=== PATIENT | male | born 1955 | race Caucasian/White ===

== ENCOUNTER 2016-12-24 09:32 | Emergency (ER) | payer MEDICARE, OTHER ==
[~2016-12-24] VITALS: Ht 167.6 cm; Wt 71.7 kg
[~2016-12-24 09:32] MED LIST: ASPI-973 PO; ATOR20TA65 PO; CLOP75TA3 PO; LISI-571 PO
[2016-12-24 09:40] VITALS: BP 109/74; PULSE 98; RESP 28; O2SAT 96
--- NOTE | 2016-12-24 09:52 | ED.REPORT ---
HPI-General Illness Date of Service Dec 24, 2016 ED Provider: Kavon Ball MD The patient is a 61 year old male with history of hypertension, hyperlipidemia, and peripheral vascular disease s/p stenting, who presents to the emergency department complaining of difficulty breathing that began yesterday. His breathing is exacerbated with exertion. He also complains of severe bilateral lower extremity pain. The pain is located to his thighs bilaterally. He describes the pain as "sharp." His pain is worse with exertion. His pain is similar to when he previous needed stents placed in his legs. The patient has been vomiting intermittently over the last few weeks that began after he drank Clorox by accident. He has been unable to keep anything down. He denies numbness , focal weakness, headache or chest pain. The patient states he stopped taking his medications on Friday because they have been making him sick. His medications include: atorvastatin, lisinopril, aspirin, and clopidogrel. Nursing Notes Stated Complaint: BILATERAL LEG PAIN/SHORTNESS OF BREATH/VOMITING Chief Complaint: Respiratory Complaints Nursing Notes Reviewed: Yes Allergies: Coded Allergies: codeine (Verified Adverse Reaction, Intermediate, nausea, 01/23/16) Scheduled Aspirin (Aspirin) 81 Mg Tablet 81 MG PO DAILY Atorvastatin Calcium (Atorvastatin Calcium) 20 Mg Tablet 20 MG PO DAILY Clopidogrel Bisulfate (Plavix) 75 Mg Tablet 75 MG PO DAILY Lisinopril (Lisinopril) 5 Mg Tablet 5 MG PO DAILY General Time Seen by MD: 09:50 Chief Complaint Other (difficulty breathing) Hx Obtained From: Patient Arrived By: Walk-in Sudden in Onset?: Yes Onset Occurred: Yesterday Symptom Duration: Since onset Location: : Leg left: Leg right Quality: Painful, Sharp Severity: Current: Severe Severity: Maximum: Severe Recent Healthcare: No recent hospitalization Similar Sx Previous: Yes Past Medical History Past Medical History Hypertension Hyperlipidemis Peripheral vascular disease Past Surgical History Multiple stents for peripheral vascular disease Family History Noncontributory Smoking History Former Smoker Social History Other Social History: Local resident Ambulatory Status Independent Review of Systems Full Review of Systems Constitutional: Reports: Weakness - generalized Respiratory: Reports: Shortness of breath Cardiovascular: Denies: Chest pain GI: Reports: Nausea, Vomiting Musculoskeletal: Reports: Extremity pain Neurologic: Denies: Focal weakness, Headache, Numbness Complete sys rev & neg: except as marked. Physical Exam Vital Signs Vital Signs Date Time Temp Pulse Resp B/P Pulse Ox O2 Delivery O2 Flow Rate FiO2 12/24/16 16:31 96 24 120/66 93 Room Air 12/24/16 14:34 68 22 148/76 93 Room Air 12/24/16 14:25 104 26 94 Room Air 12/24/16 13:52 88 20 137/80 92 Room Air 12/24/16 11:40 82 20 122/81 93 Room Air 12/24/16 09:40 36.6 98 28 109/74 96 Room Air Initial VS: Reviewed Head / Eyes: Atraumatic, Normocephalic, PERRL Neck: Supple, Non-tender, Full range of motion Lymphatic: No lymphadenopathy Extremities: Vascular intact, Neuro intact Skin: Warm, Dry, No cyanosis Neurologic: Alert, Oriented, Nonfocal Psychiatric: Mood/affect normal, Behavior normal, Normal thought content General/Constitutional: Awake, Alert, Cooperative ENT: Atraumatic, Airway patent, Mucous membranes moist Respiratory / Chest: Atraumatic, Breath sounds NL, Breath sounds = bilat, No respiratory distress, No rales, No rhonchi, No wheezing Cardiovascular: Heart rate NL, Regular rhythm, Heart sounds NL, No gallop, No murmurs, No rubs, Cap refill not delayed, Peripheral circulation NL Abdomen: Atraumatic, Soft, Non-tender, No guarding, No rebound, BS normoactive , No distention Lower Extremity / Pelvis / MS: Neurologic intact, Vascular intact No calf swelling or tenderness. Toes are warm and well perfused. Rectum / Perineum: Blood - occult heme - Rectum / Perineum Abnl: Positive: Hemorrhoid external, Negative: Fissure present, Hemorrhoid bleeding Normal brown stool. Interpretation & Diagnostics PROCEDURE: US DUPLEX DOPPLER BILATERAL LEG ARTERIES IMPRESSION: 1. Occlusion of the proximal right and the entire left superficial femoral artery as described above. There is likely reconstitution of the distal right SFA via collaterals and reconstitution of the left popliteal artery via collaterals. 2. The left posterior tibial artery is likely occluded. 3. Probable high-grade stenosis within the left popliteal artery. These findings were discussed with Dr. Ball 3:04 PM on 12/24/16. Approved by: oYana Gibbons M.D. on 12/24/2016 at 15:07 Lab Results Interpretation Result Diagram: 12/24/16 1001 12/24/16 1001 Test 12/24/16 10:01 White Blood Count 10.1th/mm3 (3.8-10.1) Red Blood Count 4.32mil/mm3 (4.40-5.80) Hemoglobin 11.5g/dL (13.8-17.2) Hematocrit 35.4% (41.0-50.0) Mean Corpuscular Volume 81.9fL (81-100) Mean Corpuscular Hemoglobin 26.6pg (27.0-35.0) Mean Corpuscular Hemoglobin Concent 32.5% (32.0-37.0) Red Cell Distribution Width 14.9% (12.3-15.4) Platelet Count 343bil/L (150-400) Neutrophils (%) (Auto) 78.8% (40-74) Lymphocytes (%) (Auto) 9.9% (14-46) Monocytes (%) (Auto) 10.1% (4-12) Eosinophils (%) (Auto) 0.6% (0-5) Basophils (%) (Auto) 0.3% (0-3) Sodium Level 133mEq/L (134-144) Potassium Level 4.0mEq/L (3.5-5.2) Chloride Level 97mEq/L (97-108) Carbon Dioxide Level 20mmol/L (18-29) Blood Urea Nitrogen 12mg/dL (8-27) Creatinine 0.62mg/dL (0.76-1.27) Estimat Glomerular Filtration Rate 139mL/min (>59) Glucose Level 172mg/dL (60-99) Lactic Acid Level 1.4mmol/L (0.4-2.0) Calcium Level 8.9mg/dL (8.5-10.1) Magnesium Level 2.0mg/dL (1.6-2.6) Total Bilirubin 0.8mg/dL (0.0-1.2) Aspartate Amino Transf (AST/SGOT) 46U/L (0-50) Alanine Aminotransferase (ALT/SGPT) 53U/L (0-44) Alkaline Phosphatase 100U/L (25-160) Troponin T 0.010ug/L (0.0-0.011) Total Protein 6.6g/dL (6.4-8.4) Albumin 3.0g/dL (3.4-5.0) ECG Interpretation ECG Interpretation: Sinus rhythm with a rate of 89 bpm Normal axis Normal intervals No ST segment elevation No acute T wave abnormalities When compared to prior EKG taken on 01/23/2016 there are no significant changes Time: 09:56 Interpreted by: ED physician X-Ray Chest Interpretation Chest Xray Interpretation: IMPRESSION: 1. Large left pleural effusion which maybe loculated. Contrast-enhanced CT the chest recommended to further characterize this finding if clinically indicated. 2. Consolidation at the left lung base suspicious for aspiration/infection. Underlying neoplasm cannot be excluded and further characterization with CT is warranted. 3. Right upper lobe pulmonary nodule suspicious for neoplasm. CT of the chest recommended to further characterize this finding. Dictated by: Yoana Gibbons M.D. on 12/24/2016 at 10:22 Interpretation / Wet Read by: Interpret - Radiologist CT Chest Interpretation IMPRESSION: 1. Radiographic finding corresponds with a 2 cm spiculated mass on CT scan, consistent with neoplasm. 2. Larger 5.3 cm left upper lobe mass is also present, consistent with neoplasm. Findings may represent synchronous primary bronchogenic neoplasms. Additional 5 mm posterolateral right lung base nodule more likely represents pulmonary metastasis. 3. Multiple enlarged mediastinal and bilateral hilar lymph nodes, consistent with metastases. 4. Large partially loculated left pleural effusion, with scattered posteroinferior left pleural nodular lesions, consistent with metastases and malignant effusion. Dictated by: Mazin Meyers M.D. on 12/24/2016 at 14:40 Study type: Chest CT w contrast Interpretation / Wet Read by: Interpret - Radiologist Re-Eval/Medical Decision Med Decision/Clinical Course The patient is a 61 year old male with history of hypertension, hyperlipidemia, and peripheral vascular disease s/p stenting, who presents to the emergency department complaining of difficulty breathing that began yesterday. His breathing is exacerbated with exertion. He also complains of severe bilateral lower extremity pain. The pain is located to his thighs bilaterally. He describes the pain as "sharp." His pain is worse with exertion. His pain is similar to when he previous needed stents placed in his legs. Here in the emergency department the patient is afebrile and hemodynamically stable. Examination as above. Doppler - DP detected on right foot, undetectable on left. LABS: No leukocytosis, hct 35.4 sig down from 44.4 on 01/23/16, CMP stable renal function, no significant electrolyte abnormalities, lactic acid 1.4. Rectal exam: guaiac negative, brown stool. CXR: Large left pleural effusion which maybe loculated. Consolidation at the left lung base suspicious for aspiration/infection. Right upper lobe pulmonary nodule suspicious for neoplasm. Chest CT: 1. Radiographic finding corresponds with a 2 cm spiculated mass on CT scan, consistent with neoplasm. 2. Larger 5.3 cm left upper lobe mass is also present, consistent with neoplasm. Findings may represent synchronous primary bronchogenic neoplasms. Additional 5 mm posterolateral right lung base nodule more likely represents pulmonary metastasis. 3. Multiple enlarged mediastinal and bilateral hilar lymph nodes, consistent with metastases. 4. Large partially loculated left pleural effusion, with scattered posteroinferior left pleural nodular lesions, consistent with metastases and malignant effusion. LE Duplex: 1. Occlusion of the proximal right and the entire left superficial femoral artery as described above. There is likely reconstitution of the distal right SFA via collaterals and reconstitution of the left popliteal artery via collaterals. 2. The left posterior tibial artery is likely occluded. 3. Probable high-grade stenosis within the left popliteal artery. Patient presents at this time with multiple concerning medical conditions. In regard to his lower extremity claudication I have discussed the above ultrasound findings with Dr. Pryor originally placed stents. I have ordered heparinization and would like to admit the patient. Dr. Pryor does not feel that this is necessarily indicated given that his feet do not appear acutely ischemic he would prefer to see him instead in his clinic at 2 PM tomorrow. That being said given the concomitant findings of likely malignancy I feel the patient should be admitted in order to expedite further workup. In regards to the patient's drop in hematocrit I see no evidence of GI bleed. I discussed all of this with the patient and he is adamant that he refuses admission under any circumstances. I discussed with him my concern for possible limb loss as well as need for expedited workup of his malignancy. Patient states that he refuses to be admitted. I discussed the patient with pulmonology and they are able to see him in their clinic in one week for further workup of his likely metastatic cancer. In regard to the patient's arterial disease he has an appointment at 2 PM tomorrow but states that he has no intention of going to this as he does not know how he will get there. I have made multiple attempts to convince the patient to stay in the hospital given that he seems to have multiple social barriers to being able to get adequate follow-up. He continues to refuse admission. I am unconvinced that he will follow up with any of his outpatient appointments however he demonstrates digital capacity and insight into the severity of his condition and chooses to leave AGAINST MEDICAL ADVICE. Prior to discharge follow-up and return precautions were reviewed in detail with the patient who verbalized understanding. The patient is advised to come back to the emergency room if he changes his mind or is unable to get outpatient follow-up. Source of Hx: Old records Time of Eval: 11:42 Re-Evaluation/Progress Note: Rechecked the patient. Discussed plan for bilateral lower extremity ultrasounds. Time of Eval: 14:07 Re-Evaluation/Progress Note: Rechecked the patient. Discussed plan for outpatient appointment with Dr. Pina, the patient does not think he can make it to the appointment tomorrow because he does not drive. He does think he may be able to ride the bus. The patient states he is not worried about his legs but is more worried about his breathing. On re-examination the patient's lungs are slightly coarse. The patient does not use breathing treatments at home. He is willing to try one here to see if it helps. Will also order chest CT. Time of Eval: 15:24 Re-Evaluation/Progress Note: The patient is unwilling to stay in the hospital. He has animals at home and does not have anyone to take care of them. Will hold heparin at this time. Time of Eval: 16:01 Re-Evaluation/Progress Note: Rechecked the patient. Discussed chest CT results with the patient. Continued to recommend admission. The patient would still like to go home. He is agreeable to see a specialist to further discuss the CT results. He understands the risks of leaving today. Consultation #1: Referral / Consult Name: Salvatore Pina MD Consulted With: Cardiology Requested Call at: 10:55 Call Returned at: 12:14 Note: He doesn't need any emergent intervention. Dr. Pina will see him in clinic next week. Consultation #2: Referral / Consult Name: Yris Pugh MD Consulted With: Cardiology Call Returned at: 11:39 Spar Machine Operator: Agrees with eval, Agrees with plan Consultation #3: Referral / Consult Name: Salvatore Pina MD Consulted With: Cardiology Call Returned at: 14:02 Note: Discussed ultrasound results. He does not feel that the patient needs to be admitted or that he needs to see the patient in the ED today. Consultation #4: Referral / Consult Name: Lawrence Maldonado MD Consulted With: Ornamental Metal Worker Call Returned at: 16:07 Spar Machine Operator: Agrees with eval, Agrees with plan Note: Discussed the patient's case with the cotton weigher operator maintenance planner. Refer the patient to Dr. Hopper. Consultation #5: Referral / Consult Name: Maria L Hopper MD Consulted With: Ornamental Metal Worker Requested Call at: 16:08 Call Returned at: 16:13 Spar Machine Operator: Will see in office, Agrees with eval, Agrees with plan Note: She recommends a full workup from admission but will see him in clinic on Friday or Friday of next week. Counseled Regarding: Diagnosis, Lab results, Need for follow-up, When/why to return to ED Discharge & Departure Primary Impression: Peripheral vascular disease Additional Impressions: Dyspnea Dyspnea type: shortness of breath Qualified Code: R06.02 - Shortness of breath Pulmonary mass Pleural effusion Ischemic leg Noncompliance by refusing intervention or support Anemia Anemia type: unspecified type Qualified Code: D64.9 - Anemia, unspecified Disposition: Home Discharge Condition All VS Reviewed: Yes Condition: Stable Patient Instructions: Peripheral Vascular Disease (ED) Additional Instructions: We highly recommend that you are admitted to the hospital today but you are refusing. We are concerned about the likelihood about cancer in your lungs which needs to be worked up as well as not getting enough blood flow to your legs which could potentially cause you to loose your leg. You have an appointment with Dr. Pina in clinic tomorrow at 2 PM. Please arrive early for check-in. Your appointment is at the [facility] location, the address is: [address] [place] [id number]. If you cannot make this appointment, please call tomorrow to cancel and reschedule. You should also followup with a maintenance planner to further discuss your chest CT results. We have given you a referral to Dr. Hopper. Call tomorrow to schedule an appointment in the next few days. We also recommend that you take all of your medications that were previously prescribed. Return to the emergency department for worsening pain in your leg, coolness in your feet, loss of sensation of your foot, discoloration of your foot, inability to walk, or any other new or concerning symptoms. You are welcome to return at any time to get these issues treated. Referrals: Anurag Kasper DO (PCP) Maria L Hopper MD, Sanjeev MD Crit Care Except Billable Proc Time Spent: 135-164 minutes Services Performed: Patient management by me, Time spent at bedside, Reviewing test results, Reviewing imaging, Discussing patient care, Documentation in record, Time with fam/surrogate Critical Care Notes: Significant time spent in discussions with patient, discussions with consultants and attempting to arrange appropriate outpatient follow-up for this patient who refuses admission and has multiple barriers to achieving outpatient follow-up for his multiple critical conditions. Brandonibe Attestation Portions of this note were transcribed by Shana Young. I, Dr. Ball personally performed the history, physical exam and medical decision-making; I reviewed and confirmed the accuracy of the information in the transcribed note. Signed by: Lee Ann Meyers, 12/24/2016 at 1700. copies to: Anurag Kasper DO; Maria L Hopper MD; Salvatore Pina MD, Beck O MD Dec 24, 2016 09:52 Shana Young Dec 24, 2016 10:11
[2016-12-24 10:13] LABS: BASOPHILS % (AUTO) 0.3 % (0-3); EOSINOPHILS % (AUTO) 0.6 % (0-5); MONOCYTES % (AUTO) 10.1 % (4-12); Mean Corpuscular Hemoglobin 26.6 pg (27.0-35.0); Mean Corpuscular Volume 81.9 fL (81-100); NEUTROPHILS % (AUTO) 78.8 % (40-74); Platelet Count 343 bil/L (150-400)
--- NOTE | 2016-12-24 10:28 | DRSVH ---
PROCEDURE: X-RAY CHEST ONE VIEW, PORTABLE ([id number]) INDICATIONS: SOB TECHNIQUE: One view of the chest was acquired. COMPARISON: [facility], CT, CHEST W/O CONTRAST, 12/13/2013, 12:11. [facility], CR, CHEST 1VW (PORTABLE), 09/09/2013, 11:51. FINDINGS: Surgical changes and devices: None. Lungs and pleura: There is a large left pleural effusion which has a partially loculated appearance. Air space opacities and consolidation are present within the left mid and lower lung. There is a ill- defined 2.0 cm right upper lobe radiopacity. No right pleural effusion. No pneumothorax. Mediastinum: Mediastinal contours appear normal. Heart size is normal. Bones and chest wall: No suspicious bony lesions. Overlying soft tissues appear unremarkable. IMPRESSION: 1. Large left pleural effusion which maybe loculated. Contrast-enhanced CT the chest recommended to f urther characterize this finding if clinically indicated. 2. Consolidation at the left lung base suspicious for aspiration/infection. Underlying neoplasm canno t be excluded and further characterization with CT is warranted. 3. Right upper lobe pulmonary nodule suspicious for neoplasm. CT of the chest recommended to further characterize this finding. Dictated by: Yoana Gibbons M.D. on 12/24/2016 at 10:22 Approved by: Yoana Gibbons M.D. on 12/24/2016 at 10:26
[2016-12-24 10:40] LABS: TROPONIN T 0.01 ug/L (0.0-0.011)
[2016-12-24 11:40] VITALS: BP 122/81; PULSE 82; RESP 20; O2SAT 93
[2016-12-24 13:52] VITALS: BP 137/80; PULSE 88; RESP 20; O2SAT 92
[2016-12-24] MEDS ORDERED: Albuterol-Ipratropium 3 mL Inhalation Solution NEB ONE (14:10)
[2016-12-24 14:25] VITALS: PULSE 104; RESP 26; O2SAT 94
[2016-12-24 14:34] VITALS: BP 148/76; PULSE 68; RESP 22; O2SAT 93
--- NOTE | 2016-12-24 15:09 | DRSVH ---
PROCEDURE: US DUPLEX DOPPLER BILATERAL LEG ARTERIES ([id number]) INDICATIONS: claudication, PAD, stend hx TECHNIQUE: Color and pulse Doppler interrogation was performed of both lower extremity arterial systems, with im age documentation. COMPARISON: [facility], XA, REVASC FEM/POP (ANGIOPLASTY), 01/23/2016, 9:45. [facility], US, US ARTERY LEG DPLX BILAT, 09/26/2015, 14:20. FINDINGS: Right lower extremity: Vascular Ultrasound Procedure Report Findings(Artery of Lower Extremity)(Right) Common Femoral Artery(Distal) Velocity: 51.30 cm/s Profunda Femoris Artery(Proximal) Velocity: 178.60 cm/s Superficial Femoral Artery(Proximal) Velocity: 0 cm/s Superficial Femoral Artery(Mid-longitudinal) Velocity: 47.90 cm/s Superficial Femoral Artery(Distal) Velocity: 26.40 cm/s Popliteal Artery(Mid-longitudinal) Velocity: 20 cm/s Posterior Tibial Artery(Distal) Velocity: 23.10 cm/s Dorsalis Pedis Artery(Distal) Velocity: 23.10 cm/s Greyscale findings: There is occlusion of the proximal superficial femoral artery with reconstitution of the mid superficial femoral artery likely from collaterals. Atheromatous calcifications are prese nt throughout the right lower extremity arteries. Left lower extremity: Vascular Ultrasound Procedure Report Findings(Artery of Lower Extremity)(Left) Common Femoral Artery(Distal) Velocity: 68.90 cm/s Profunda Femoris Artery(Proximal) Velocity: 226.20 cm/s Superficial Femoral Artery(Proximal) Velocity: 0 cm/s Superficial Femoral Artery(Mid-longitudinal) Velocity: 0 cm/s Superficial Femoral Artery(Distal) Velocity: 0 cm/s Popliteal Artery(Mid-longitudinal) Velocity: 91.20 cm/s Posterior Tibial Artery(Distal) Velocity: 0 cm/s Dorsalis Pedis Artery(Distal) Velocity: 11.40 cm/s Greyscale findings: There is occlusion of the left superficial femoral artery throughout its course. There is reconstitution of the popliteal artery likely via collaterals. A stenosis is present within the left popliteal artery. IMPRESSION: 1. Occlusion of the proximal right and the entire left superficial femoral artery as described above. There is likely reconstitution of the distal right SFA via collaterals and reconstitution of the lef t popliteal artery via collaterals. 2. The left posterior tibial artery is likely occluded. 3. Probable high-grade stenosis within the left popliteal artery. These findings were discussed with Dr. Ball 3:04 PM on 12/24/16. Approved by: Yoana Gibbons M.D. on 12/24/2016 at 15:07
[2016-12-24] MEDS ORDERED: Heparin Initial Bolus IVPUSH ONE (15:15)
[2016-12-24] MEDS ORDERED: Heparin Protocol Boluses IVPUSH PRN (15:15)
[2016-12-24] MEDS ORDERED: Heparin 25K Unit/500mL 0.45 NS 25,000 UNIT in IV Premix 1 EACH IV SCH (15:15)
--- NOTE | 2016-12-24 15:54 | DRSVH ---
PROCEDURE: CT CHEST WITH CONTRAST ([id number]) INDICATIONS: 61 year-old male with right upper lung mass on recent radiographs. TECHNIQUE: After the administration of intravenous contrast, 5 mm thick sections acquired from the pulmonary api cj to the posterior costophrenic angles. 7 mm thick coronal and sagittal MIP reformats were acquire d. For radiation dose reduction, the following was used: automated exposure control, adjustment of mA and/or kV according to patient size. COMPARISON: [facility], CR, XR CHEST 1VW (PORTABLE), 12/24/2016, 10:00. [facility], CT, CHEST W/O CONTRAST, 12/13/2013, 12:11. FINDINGS: Image quality: Excellent. Lungs and pleura: Previously noted 3 mm lateral right upper lobe nodule has now increased in size up to 2 cm, demonstrating spiculated margins and corresponding with radiographic finding. Previously no don 4 cm groundglass and solid nodular opacity within the left upper lobe has also increased in size and density to 5.3 cm. Moderate to large partially loculated left pleural effusion causes peripheral compressive atelectasis of the left upper and lower lobes. Pleural nodular lesions are present within the posterior left lower thorax. On axial image 42, posterolateral right lung base 5 mm nodule appe ars new since 2013. No pneumothorax. Anterior left upper lobe bullous emphysema is again noted. Centr al and peripheral airways are patent and normal in caliber. Mediastinum: Heart size is normal. No pericardial effusion. Multiple enlarged mediastinal and bilat eral hilar lymph nodes appear new since 2014, measuring up to 2.0 cm short axis dimensions in the sub carinal region. Thoracic aorta and central pulmonary arteries are normal in size. Esophagus is grace l in caliber. No hiatal hernia. Bones and chest wall: No suspicious bony lesions. No vertebral body compression fractures. No axil chris or supraclavicular adenopathy by size criteria. Thyroid gland is normal in size. Abdomen: Visualized upper abdominal solid organs appear normal. Upper abdominal bowel loops are nor mal in caliber. IMPRESSION: 1. Radiographic finding corresponds with a 2 cm spiculated mass on CT scan, consistent with neoplasm. 2. Larger 5.3 cm left upper lobe mass is also present, consistent with neoplasm. Findings may represe nt synchronous primary bronchogenic neoplasms. Additional 5 mm posterolateral right lung base nodule more likely represents pulmonary metastasis. 3. Multiple enlarged mediastinal and bilateral hilar lymph nodes, consistent with metastases. 4. Large partially loculated left pleural effusion, with scattered posteroinferior left pleural nodul ar lesions, consistent with metastases and malignant effusion. Dictated by: Mazin Meyers M.D. on 12/24/2016 at 14:40 Approved by: Mazin Meyers M.D. on 12/24/2016 at 14:52
[2016-12-24 16:31] VITALS: BP 120/66; PULSE 96; RESP 24; O2SAT 93
== END 2016-12-24 16:31 | disposition home or self-care (01) ==
LOC: SED 09:32
DX: I73.9 Peripheral vascular disease, unspecified (principal); R91.8 Other nonspecific abnormal finding of lung field; J90 Pleural effusion, not elsewhere classified; I99.8 Other disorder of circulatory system; D64.9 Anemia, unspecified; I10 Essential (primary) hypertension; E78.5 Hyperlipidemia, unspecified; Z87.891 Personal history of nicotine dependence; Z79.82 Long term (current) use of aspirin; Z79.899 Other long term (current) drug therapy
CPT/HCPCS: 36415; 71010; 71260; 80053; 83605; 83735; 84484; 85025; 93005; 93925; 99285; J7620; Q9967

== ENCOUNTER 2016-12-31 10:21 | Inpatient (IN) | payer MEDICARE ==
[~2016-12-31] VITALS: Ht 170.2 cm; Wt 72.7 kg
[2016-12-31] VITALS (9 sets, daily range): BP systolic 90–122; BP diastolic 64–83; PULSE 89–101; RESP 12–25; O2SAT 95–99
--- NOTE | 2016-12-31 12:15 | ED.REPORT ---
HPI-Dyspnea / Wheezing Date of Service Dec 31, 2016 ED Provider: Woo Salazar MD Patient is a 61 year old male with a hx of HTN and peripheral vascular disease with stents who presents to the ED from for increasing SOB over the last week. Today he was digging a ditch when he became very short of breath. Associated symptoms include lower extremity pain and productive cough. He denies extremity swelling, chest pain, fever, or any other symptoms. He was sent with oxygen from with symptom improvement. He was 89% on room air at . Patient has an appointment with his PCP at [facility] but could not wait until then. He was seen here a week ago , had a contrast CT scan of the chest which demonstrated a left pleural effusion and spiculated mass suspicious for malignancy. Presented to urgent care today with dyspnea. As an approximately [id number] smoking history not smoking. Nursing Notes Stated Complaint: SHORTNESS OF BREATH, CHEST DISCOMFORT Chief Complaint: Respiratory Distress Nursing Notes Reviewed: Yes Allergies: Coded Allergies: No Known Allergies (Unverified , 12/31/16) Scheduled Aspirin (Aspirin) 81 Mg Tablet 81 MG PO DAILY Atorvastatin Calcium (Atorvastatin Calcium) 20 Mg Tablet 20 MG PO DAILY Clopidogrel Bisulfate (Plavix) 75 Mg Tablet 75 MG PO DAILY Lisinopril (Lisinopril) 5 Mg Tablet 5 MG PO DAILY Scheduled PRN Acetaminophen/Codeine 300-30mg (Acetaminophen/Codeine 300-30mg) 1 Each Tablet 2 TABLET PO Q6H PRN PRN Pain General Time Seen by MD: 12:14 Chief Complaint Shortness of breath Hx Obtained From: Patient Arrived By: Walk-in Sudden in Onset?: No Onset Occurred: 1 week ago Symptom Duration: Since onset Recent Healthcare: Recent doctor visit Similar Sx Previous: Yes Past Medical History Past Medical History Hypertension Hyperlipidemis Peripheral vascular disease Past Surgical History Multiple stents for peripheral vascular disease iliac artery surgery Reports: Cataract surgery Family History Noncontributory Smoking History Former Smoker Social History Other Social History: Local resident Ambulatory Status Independent Review of Systems Constitutional: Denies: Fever Respiratory: Reports: Dyspnea on exertion, Prod cough, clear, Shortness of breath Cardiovascular: Denies: Chest pain Musculoskeletal: Reports: Extremity pain, Denies: Extremity swelling Complete sys rev & neg: except as marked. Physical Exam Initial Vital Signs Vital Signs (First) Date Time Temp Pulse Resp B/P Pulse Ox O2 Delivery O2 Flow Rate FiO2 12/31/16 10:40 36.9 91 18 101/70 99 Nasal Cannula 4 Initial VS: Reviewed, Vital signs normal Head / Eyes: Atraumatic, Normocephalic Neurologic: Alert, Oriented, Nonfocal Psychiatric: Mood/affect normal, Behavior normal, Normal thought content General/Constitutional: Awake, Alert Neck: Full range of motion Respiratory / Chest: No wheezing diminished breath sounds, L>R Poor air movement throughout Cardiovascular: Heart rate NL, Regular rhythm, Heart sounds NL, No gallop, No murmurs, No rubs, Peripheral circulation NL Lower Extremity / Pelvis / MS: Non-tender Calves non-tender no cords Skin: Warm, Dry Ankle / Foot: Neurologic intact, Vascular intact Feet warm, pulses intact Interpretation & Diagnostics Lab Results Interpretation Result Diagram: 12/31/16 1202 12/31/16 1202 Test 12/31/16 12:02 White Blood Count 12.5th/mm3 (3.8-10.1) Red Blood Count 4.07mil/mm3 (4.40-5.80) Hemoglobin 10.8g/dL (13.8-17.2) Hematocrit 32.6% (41.0-50.0) Mean Corpuscular Volume 80.1fL (81-100) Mean Corpuscular Hemoglobin 26.5pg (27.0-35.0) Mean Corpuscular Hemoglobin Concent 33.1% (32.0-37.0) Red Cell Distribution Width 15.3% (12.3-15.4) Platelet Count 373bil/L (150-400) Neutrophils (%) (Auto) 80.3% (40-74) Lymphocytes (%) (Auto) 9.1% (14-46) Monocytes (%) (Auto) 9.9% (4-12) Eosinophils (%) (Auto) 0.2% (0-5) Basophils (%) (Auto) 0.2% (0-3) Prothrombin Time 12.9sec (8.1-12.5) Prothromb Time International Ratio 1.20ratio D-Dimer 16.29mg/L FEU (<0.50) Sodium Level 130mEq/L (134-144) Potassium Level 4.4mEq/L (3.5-5.2) Chloride Level 93mEq/L (97-108) Carbon Dioxide Level 21mmol/L (18-29) Blood Urea Nitrogen 12mg/dL (8-27) Creatinine 0.54mg/dL (0.76-1.27) Estimat Glomerular Filtration Rate 163mL/min (>59) Glucose Level 100mg/dL (60-99) Calcium Level 8.6mg/dL (8.5-10.1) Magnesium Level 1.9mg/dL (1.6-2.6) Total Bilirubin 0.8mg/dL (0.0-1.2) Aspartate Amino Transf (AST/SGOT) 27U/L (0-50) Alanine Aminotransferase (ALT/SGPT) 39U/L (0-44) Alkaline Phosphatase 113U/L (25-160) Troponin T 0.010ug/L (0.0-0.011) Total Protein 6.5g/dL (6.4-8.4) Albumin 2.9g/dL (3.4-5.0) ECG Interpretation ECG Interpretation: Sinus rate 90 prolonged QT interval no acute changes Time: 12:33 Interpreted by: ED physician X-Ray Chest Interpretation Chest Xray Interpretation: IMPRESSION: 1. Massive left-sided pleural effusion has significantly increased in the interim. 2. Right upper lobe pulmonary nodule. Dictated by: Bernard Lindsay M.D. on 12/31/2016 at 11:44 Approved by: Bernard Lindsay M.D. on 12/31/2016 at 11:47 View: Portable, 1 view Interpretation / Wet Read by: Interpret - Radiologist CT Chest Interpretation IMPRESSION: 1. Exam is positive for minimal pulmonary embolic disease, specifically in the right lower lobe medially such as series 6/image 105. There are likely additional small emboli but overall clot burden is considered low. 2. 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 Several new subpleural metastases in the right posterior costophrenic angle. Note: Report called to Dr. Salazar in the ED at 1430 hrs. on 12/31/2016 Dictated by: Jake El M.D. on 12/31/2016 at 14:16 Approved by: Jake El M.D. on 12/31/2016 at 14:33 Study type: CT pulm angiogram Interpretation / Wet Read by: Interpret - Radiologist, Tracee w radiologist Re-Eval/Medical Decision Med Decision/Clinical Course 61-year-old male with newly diagnosed lung mass probable malignancy. He has 2 acute problems today, first he has a rapidly progressive left pleural effusion which has essentially shannon out his left lung. In addition unfortunately he also has acute pulmonary emboli. Given the relative size of the pleural effusion and the pulmonary emboli it is clear that the pleural effusion is a primary issue with his dyspnea today. We have consulted radiology for an ultrasound guided thoracentesis which will be therapeutic and diagnostic. Following this had an appropriate interval to be determined by the hospitalist service, he will be anticoagulated. The patient is aware of the plan and is in agreement. He is at present hemodynamically stable and on supplemental oxygen is not dyspneic. Re-Evaluation/Progress #1: Time of Eval: 13:25 )( Re-Eval Resp / Chest: No wheezing Re-Evaluation/Progress Note: rechecked pt. discussed plan for CT and possible fluid drainage. Discussed imaging results. Patient understands and agrees with plan. All questions addressed at this time. Re-Evaluation/Progress #2: Time of Eval: 14:37 Re-Evaluation/Progress Note: Discussed imaging results and plan for admission. Patient understands and agrees with plan. All questions addressed at this time. Consultation : Referral / Consult Name: Orlando Esquivel MD Consulted With: Hospitalist Call Returned at: 14:38 Rooming House Inspector: Will see patient, Agrees with eval, Agrees with plan, Accepts admit Note: Discussed pt's case. Will coordinate anticoagulation. Arrange for pleural effusion tap in ED. Counseled Regarding: Diagnosis, Lab results, Need for admission Discharge & Departure Impression: Primary Impression: Pulmonary emboli Pulmonary embolism type: other Chronicity: unspecified Acute cor pulmonale presence: without acute cor pulmonale Qualified Code: I26.99 - Other pulmonary embolism without acute cor pulmonale Additional Impression: Pleural effusion Disposition: ADMITTED TO HOSPITAL Discharge Condition All VS Reviewed: Yes Condition: Stable Referrals: NOPCP (PCP) Scribe Attestation Portions of this note were transcribed by Vianca Pa. I, Dr. Salazar personally performed the history, physical exam and medical decision-making; I reviewed and confirmed the accuracy of the information in the transcribed note. Signed by: Vianca Pa 12/31/2016, 1502 Woo Salazar MD Dec 31, 2016 12:15 VIANCA PA Dec 31, 2016 12:25
[2016-12-31 12:32] LABS: BASOPHILS % (AUTO) 0.2 % (0-3); EOSINOPHILS % (AUTO) 0.2 % (0-5); MONOCYTES % (AUTO) 9.9 % (4-12); Mean Corpuscular Hemoglobin 26.5 pg (27.0-35.0); Mean Corpuscular Volume 80.1 fL (81-100); NEUTROPHILS % (AUTO) 80.3 % (40-74); Platelet Count 373 bil/L (150-400)
[2016-12-31 12:42] LABS: TROPONIN T 0.01 ug/L (0.0-0.011)
--- NOTE | 2016-12-31 12:49 | DRSVH ---
PROCEDURE: X-RAY CHEST ONE VIEW, PORTABLE ([id number]) INDICATIONS: dyspnea, sob TECHNIQUE: One view of the chest was acquired. COMPARISON: [facility], CT, CT CHEST W CON, 12/24/2016, 14:35. [facility], C R, XR CHEST 1VW (PORTABLE), 12/24/2016, 10:00. FINDINGS: Surgical changes and devices: None. Lungs and pleura: There is a large left-sided pleural effusion identified, which has significantly in creased since the previous examination with near complete opacification of the left lung. Only a sma ll amount of aerated lung remains within the left lung apex. Aeration of the right lung is unchanged . There continues to be right upper lobe pulmonary nodule/mass, which also is unchanged. There is n o pneumothorax. Mediastinum: The mediastinal silhouette is within normal limits. There is aortic atherosclerosis. T he heart is obscure by a large left-sided effusion. Bones and chest wall: No suspicious bony lesions. Overlying soft tissues appear unremarkable. IMPRESSION: 1. Massive left-sided pleural effusion has significantly increased in the interim. 2. Right upper lobe pulmonary nodule. Dictated by: Bernard Lindsay M.D. on 12/31/2016 at 11:44 Approved by: Bernard Lindsay M.D. on 12/31/2016 at 11:47
[2016-12-31 12:53] LABS: Magnesium 1.9 mg/dL (1.6-2.6)
--- NOTE | 2016-12-31 14:35 | DRSVH ---
PROCEDURE: CT ANGIO CHEST PULMONARY EMBOLISM ([id number]) INDICATIONS: elevated dimer and hypoxemia/dyspnea TECHNIQUE: After the administration of intravenous contrast, 2 mm thick sections acquired from the pulmonary api cj to the posterior costophrenic angles. 3-dimensional maximum intensity projection (MIP) coronal a nd sagittal reformats were then acquired through the thorax. For radiation dose reduction, the follo wing was used: automated exposure control, adjustment of mA and/or kV according to patient size. COMPARISON: Chest 12/31/2016; CT chest 12/24/2016 FINDINGS: Image quality: Excellent. Pulmonary arteries: Pulmonary arteries are normal in size. There is a definite intraluminal filling defect within a peripheral branching of a right lower lobe artery at the medial base. No central or s addle emboli seen. Left pulmonary vessels are markedly crowded secondary to severe atelectasis as rel ated to large malignant effusion. Lungs and pleura: As noted above, a large left pleural effusion is present, malignant based upon nodu lar pleural enhancement seen posteriorly at several levels. No right pleural effusion. A 1.5 x 2 cm s piculated mass in the posterior right upper lobe is again noted. A 4.6 cm left perihilar mass is agai n noted. At the right base posteriorly, the solitary 5 mm subpleural nodule is reidentified and there are no multiple similar sized nodules along the posterior pleura, series 8/image 132, likely metasta tic lesions. Mediastinum: Heart size is normal, without pericardial effusion. Multiple enlarged mediastinal and b ilateral hilar lymph nodes compatible with inna metastases. For example a 2.5 cm short diameter subc arinal node is present on the right, image 77. Thoracic aorta is normal in caliber and enhancement. Esophagus is normal in caliber, without hiatal hernia. Bones and chest wall: No suspicious bony lesions. Ribs and thoracic spine appear intact throughout. Thyroid gland appears normal. No axillary or supraclavicular adenopathy. Abdomen: Visualized upper abdominal solid organs appear normal in the early arterial phase of enhanc ement. There are several suspicious gastrohepatic and jone hepatis lymph nodes. IMPRESSION: 1. Exam is positive for minimal pulmonary embolic disease, specifically in the right lower lobe media lly such as series 6/image 105. There are likely additional small emboli but overall clot burden is c onsidered low. 2. 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 Several new subpleural metastases in the right posterior costophrenic angle. Note: Report called to Dr. Salazar in the ED at 1430 hrs. on 12/31/2016 Dictated by: Jake El M.D. on 12/31/2016 at 14:16 Approved by: Jake El M.D. on 12/31/2016 at 14:33
[2016-12-31 14:59] LABS: INR 1.2 ratio
[2016-12-31] MEDS ORDERED: Alum-Mag Hydrox-Simeth 30 mL Suspension PO PRN (16:25)
[2016-12-31] MEDS ORDERED: Ondansetron 2 mg/mL 2 mL Inj IVPUSH PRN (16:25)
[2016-12-31] MEDS ORDERED: Polyethylene Glycol (PEG) 17 Gm Powder PO PRN (16:25)
--- NOTE | 2016-12-31 16:33 | DRSVH ---
PROCEDURE: X-RAY CHEST ONE VIEW ([id number]) INDICATIONS: POST THORACENTESIS TECHNIQUE: One view of the chest was acquired. COMPARISON: 12/31/2016. FINDINGS: Surgical changes and devices: None. Lungs and pleura: Minimal change in volume of large left pleural effusion. No pneumothorax or air flu id levels identified. Small right pleural effusion. Mass lesion in the right upper lobe unchanged. Mediastinum: Mediastinal contours appear normal. Heart size is normal. Bones and chest wall: No suspicious bony lesions. Overlying soft tissues appear unremarkable. IMPRESSION: 1. No visible pneumothorax post left thoracentesis. Considerable remaining fluid volume. Small right pleural effusion has developed. 2. Large left-sided mass lesion is obscured. Small mass in the right upper lobe is again noted. Dictated by: Jake El M.D. on 12/31/2016 at 16:29 Approved by: Jake El M.D. on 12/31/2016 at 16:31
--- NOTE | 2016-12-31 16:38 | ABG ---
DateTimeAnalyzed 16:29:49 -_ pH ____7.201 - pCO2 ___49.7__ -mmHg pO2 ___20.7__ -mmHg HCO3- ___19.5__ -mmol/L 22.0 26.0 ABE ___-7.0__ -mmol/L tHb ____0.95_ -g/dL FIO2 ___21.0__ -% Drawn By ____nurse - Date/Time Notified____ 16:38:00 -_ Notified By RS - Notified Whom Slack,DON - K+ ____4.1__ -mmol/L
--- NOTE | 2016-12-31 17:12 | DRSVH ---
PROCEDURE: US GUIDED THORACENTESIS BY REFERRING PHYSICIAN ([id number]) INDICATIONS: Large left pleural effusion. TECHNIQUE: The indications, alternatives, benefits, risks, and complications of the procedure were explained to the patient. Written informed consent was obtained and placed in the chart. The chest was examined sonographically, and an appropriate site was chosen for thoracentesis. The skin was prepared and rk ped in the usual sterile fashion, and 1% lidocaine was infiltrated from the skin down through the ple ural surface. A 19-gauge catheter-covered needle was then introduced into the pleural space, the cat heter was advanced and the needle was withdrawn, and thereafter pleural fluid was aspirated. The cat heter was then removed and a dressing was applied. COMPARISON: [facility], CR, XR CHEST 1VW, 12/31/2016, 16:24. FINDINGS: Access site: Left hemithorax. Needle: One-Step centesis catheter with introducer needle. Fluid volume and description: 1660 mL of bloody fluid. Fluid sent for diagnostic testing: As ordered. Medications: 1% lidocaine for local anaesthesia. Complications: None; post-procedural chest radiograph is pending to assess for pneumothorax. IMPRESSION: Successful ultrasound-guided thoracentesis. Dictated by: Jimbo Warner M.D. on 12/31/2016 at 17:08 Approved by: Jimbo Warner M.D. on 12/31/2016 at 17:09
[2016-12-31] MEDS ORDERED: ACET1TAB42 PO (17:36)
[2016-12-31] MEDS ORDERED: Heparin 5,000 Unit/mL Inj IVPUSH PRN (17:40)
[2016-12-31] MEDS ORDERED: Heparin 5,000 Unit/mL Inj IVPUSH ONE (17:40)
--- NOTE | 2016-12-31 18:14 | PCM.HPMED ---
Subjective Date of Service Dec 31, 2016 Primary Provider: Admitting Physician: Rex Watson Primary Care Physician: [place] Attending Physician: Rex Watson Chief Complaint: Shortness of breath History of Present Illness: Otis Gonzalez is a 61-year-old man with past medical history significant for hypertension, hyperlipidemia, peripheral vascular disease status post stenting, newly discovered pulmonary nodule and DVT who presented to the [facility] emergency department today from urgent care due to shortness of breath for the last week that has worsened in the last couple of days. Patient notes chest pressure, fatigue, productive cough with clear to yellow sputum and bilateral leg pain. His dyspnea is notable on exertion that but he feels fine at rest. Patient denies any purulent sputum or unilateral leg swelling. He does note drenching night sweats Of note, patient was seen in the emergency department last Friday and was diagnosed with a DVT and a nodule in his lung. He was noted to have a large left pleural effusion which may have been loculated , a consolidation of his left lung base suspicious for aspiration and a right upper lobe pulmonary nodule suspicious for a pulmonary malignancy. The patient was offered admission to the hospital at this time however he refused. His shortness of breath worsened in the last 2 days. He was actually scheduled to see pulmonology today at 1:15 PM. Patient was noted to be 89% on room air at urgent care. In the emergency department his vital signs were notable for a pulse of 91 and respiratory rate of 18, blood pressure 101/70 and a 99% pulse ox on [address] angiogram of his chest revealed multiple small pulmonary emboli and bilateral pulmonary malignancy with inna and pleural metastases and a large left pleural effusion. Patient was taken to have a diagnostic/ therapeutic thoracentesis by ultrasound prior to admission to the floor. Dr. Hopper of pulmonology was consulted and has kindly agreed to see the patient. Review of Systems: A comprehensive review of systems was conducted with the patient and found to be negative except as above in the History of Present Illness. Constitutional: Negative, except as otherwise mentioned in the history above. Ophthalmologic: Negative, except as otherwise mentioned in the history above. Cardiovascular: Negative, except as otherwise mentioned in the history above. Respiratory: Negative, except as otherwise mentioned in the history above. Gastrointestinal: Negative, except as otherwise mentioned in the history above. Genitourinary: Negative, except as otherwise mentioned in the history above. Musculoskeletal: Negative, except as otherwise mentioned in the history above. Neurological: Negative, except as otherwise mentioned in the history above. Psychiatric: Negative, except as otherwise mentioned in the history above. Hematologic/Lymphatic: Negative, except as otherwise mentioned in the history above. Allergic/Immunologic: Negative, except as otherwise mentioned in the history above. Allergies Coded Allergies: No Known Allergies (Unverified , 12/31/16) Home Medications Otis Gonzalez [id number] 12/31/2016 09:50 AM 06/18 Start Date Medication Directions Stop Date 04/16/2016 Aspir-81 81 mg tablet,delayed release TAKE ONE TABLET BY MOUTH DAILY 12/04/2015 atorvastatin 20 mg tablet take 1 tablet by oral route every day at bedtime 08/10/2016 clopidogrel 75 mg tablet take 1 tablet by oral route every day 05/02/2016 lisinopril 5 mg tablet take 1 tablet by oral route every day PMH Hypertension, hyperlipidemia, peripheral vascular disease Surgical History Multiple stents placed in peripheral arteries of the legs. Family History Does not know his family history as he left home at the age of 11. Social History Hx Alcohol Use: No (Denies) Hx Substance Use: No Hx Tobacco Use: Yes Smoking Status: Former Smoker Exam Vital Signs Vital Sign - Last Date Time Temp Pulse Resp B/P Pulse Ox O2 Delivery O2 Flow Rate FiO2 12/31/16 13:32 24 90/64 96 Nasal Cannula 3 12/31/16 12:37 91 12/31/16 10:40 36.9 Exam General: No acute distress, well-developed, well-nourished, appropriately interactive HEENT: Normocephalic, atraumatic. External ears without defect. Pupils equal, round, and reactive to light and accommodation. Anicteric sclerae, moist conjunctivae, and no lid lag. Oropharynx free of erythema and cobble stoning with moist mucosa. Neck: Supple with full range of motion. No jugular venous distension. No lymphadenopathy or thyromegaly. Cardiovascular: Regular rate and irregular rhythm with no murmurs, rubs, or gallops appreciated Pulmonary: Clear to auscultation bilaterally with no crackles, wheezes, or rhonchi. Increased work of breathing. Abdomen: Bowel tones present. Soft, mildly tender to palpation worse on the left flank, nondistended. No hepatosplenomegaly or masses appreciated. Extremities: No clubbing, cyanosis, edema, or lymphadenopathy appreciated. Skin: Normal temperature, turgor, and texture; no rash, ulcers, or subcutaneous nodules appreciated. Neurological: Cranial nerves grossly intact. Normal muscle strength, tone, and bulk. Reflexes, coordination, and sensory function within normal limits. No known gait impairment. Psychiatric: Normal mood and affect. Alert and oriented to person, place, and time. Lab and Diagnostics Result Diagram: 12/31/16 1202 12/31/16 1202 X-Rays, CTs and MRIs X-RAY CHEST ONE VIEW, PORTABLE IMPRESSION: 1. Massive left-sided pleural effusion has significantly increased in the interim. 2. Right upper lobe pulmonary nodule. Dictated by: Bernard Lindsay M.D. on 12/31/2016 at 11:44 CT ANGIO CHEST PULMONARY EMBOLISM IMPRESSION: 1. Exam is positive for minimal pulmonary embolic disease, specifically in the right lower lobe medially such as series 6/image 105. There are likely additional small emboli but overall clot burden is considered low. 2. 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 Several new subpleural metastases in the right posterior costophrenic angle. Note: Report called to Dr. Salazar in the ED at 1430 hrs. on 12/31/2016 Dictated by: Jake El M.D. on 12/31/2016 at 14:16 Assessment & Plan Otis Gonzalez is a 61-year-old man with past medical history significant for hypertension, hyperlipidemia, peripheral vascular disease status post stenting, newly discovered pulmonary nodule and DVT who presented to the [facility] emergency department today from urgent care due to shortness of breath for the last week. New diagnosis of bilateral pulmonary malignancies with inna and pleural metastases as well as left pleural effusion, present on admission, active -Status post thoracentesis with appropriate studies. Entire container of pleural fluid was provided to the lab for cytology. -Dr. Hopper consulted, appreciate, expertise. We will follow recommendations. -Supplemental oxygen Multiple small pulmonary emboli, present on admission, active -Secondary to malignancy -Will heparinize patient for 48 hours Chronic issues, present on admission, stable: Hypertension -Continue home medications Hyperlipidemia -Continue home medications CODE STATUS: FULL CODE Patient is admitted under inpatient status with expected length of stay greater than 2 midnights due to severity of presenting symptoms, risk of adverse event, and complexity of treatment plan. VTE Prophylaxis Indicated: VTE on Admission Resuscitation Status: CPR: Attempt Resuscitation Attending Statement The patient was seen and examined together with Dr. Fabian on 12/31/16 and I agree with the history, exam and plan as outlined in the note above. Tracy Fabian DO Dec 31, 2016 16:04 Rex Watson Dec 31, 2016 18:22
[2016-12-31] MEDS: Heparin 25K Unit/500mL 0.45 NS 25,000 UNIT in IV Premix 1 EACH IV SCH (18:33)
[2016-12-31] MEDS: Sodium Chloride LOK Flush 10 mL Syringe IVFLUSH SCH (18:34)
[2016-12-31 18:40] LABS: TOTAL PROTEIN,PLEURAL FLUID 4.2 g/dL
--- NOTE | 2016-12-31 18:40 | NUR ---
Admission Patient admitted to the floor from ED. Admit questions and Med list accomplished by this RN. Patient complained of no pain. Vitals - t-36.3, bp-122/83, p-90, rr-22, o2-95 on 4L nasal canula. Oriented patient to the room, placed bed in lowest position and call light within reach. Heparin Drip started at 18/u/kg/hr.
[2016-12-31 19:35] LABS: BFWBC 1000 /mm3
[2016-12-31 19:36] LABS: MONOCYTES,BODY FLUID 0 %; OTHER CELLS,BODY FLUID 50
--- NOTE | 2016-12-31 20:24 | DRSVH ---
PROCEDURE: X-RAY KUB ([id number]) INDICATIONS: abdomen pain TECHNIQUE: One view of the abdomen acquired. COMPARISON: [facility], CT, CT ANGIO CHEST PE, 12/31/2016, 13:46. FINDINGS: Surgical changes and devices: None. Bowel: Bowel gas pattern is normal. Soft tissues: Contrast within the renal collecting systems and bladder is present. No suspicious abd ominal calcifications. Visualized solid organ contours appear normal in size. Bones: No suspicious bony lesions. IMPRESSION: No acute process. Dictated by: Jean Garcia M.D. on 12/31/2016 at 20:22 Approved by: Jean Garcia M.D. on 12/31/2016 at 20:23
[2016-12-31] MEDS: Benzocaine-Menthol Lozenge 2/Pkg PO PRN (22:46)
[2017-01-01] VITALS (7 sets, daily range): BP systolic 119–136; BP diastolic 67–84; PULSE 74–92; RESP 20–22; O2SAT 95–98
--- NOTE | 2017-01-01 00:41 | NUR ---
PTT Ptt draw scheduled for 2335, called lab to be sure it was scheduled. Called lab at 0030 for Ptt, not drawn yet, drawn at 0044. No noted bleeding, will continue to monitor pt.
[2017-01-01] MEDS: Sodium Chloride LOK Flush 10 mL Syringe IVFLUSH SCH ×3 (00:51→16:14)
--- NOTE | 2017-01-01 01:41 | NUR ---
heparin Pt resting comfortably, Ptt at 46.4;bolus .36ml; rate increased to 20units/Kg/hr.
--- NOTE | 2017-01-01 03:35 | NUR ---
Ptt Called lab to confirm Ptt lab draw at 0536. Will continue to monitor.
[2017-01-01 06:10] LABS: BASOPHILS % (AUTO) 0.2 % (0-3); EOSINOPHILS % (AUTO) 0.4 % (0-5); MONOCYTES % (AUTO) 11.2 % (4-12); Mean Corpuscular Volume 81.6 fL (81-100); NEUTROPHILS % (AUTO) 78.8 % (40-74); Platelet Count 370 bil/L (150-400)
[2017-01-01 06:27] LABS: Magnesium 1.9 mg/dL (1.6-2.6)
[2017-01-01] MEDS: Benzocaine-Menthol Lozenge 2/Pkg PO PRN ×2 (09:05→14:33)
--- NOTE | 2017-01-01 11:17 | PCM.CHPMED ---
Subjective Date of Service: Jan 01, 2017 Provider requesting consult: Tracy Fabian DO Primary Physician: Admitting Physician: Rex Watson Primary Care Physician: [place] Attending Physician: Kel Schroeder MD Chief Complaint: Chief Complaint: Dyspnea History of Present Illness: PULMONOLOGY CONSULT NOTE Unfortunate 61 year old male with hx of extensive vascular disease s/p stenting with subsequent occlusion, HTN, DVT's, and 50 pack year smoking hx who presented to the ED due to acute onset of dyspnea on December 23, refused admission, and returned December 31 due to worsening dyspnea. The dyspnea aparrently began acutely on the and was worse with exertion. Denies CP but states that he had some chest pressure on the left . He also endorses fatigue, productive cough with yellow sputum and bilateral leg pain. He also states he has lost 20 lbs in the last 2-3 weeks. Pt denies fever, night sweats, congestion , or wheezing. On previous visit the patient had a CT-chest which revealed a spiculated mass in the left lobe > 5cm, as well as possible right lower lobe masses suspicious for metastatic disease. When he presented yesterday he underwent CTA which revealed a small PE as well as a very large left pleural effusion filling the left hemithorax. Thoracentesis was obtained yesterday and appeared bloody with RBC's of 3600; the entire container was sent for cytologoy. Following the procedure the patient states his breathing greatly improved although he has been at rest since this time. Additional history: -Patient is currently living at home by himself (lino lives above him). -He has a 40 year hx of smoking 1-2 packs daily, quitting 6 years ago. Former marijuana smoker and small stint of cocaine use in the distant past. -No prior hx of lung disease or asthma. PFT's performed 11/04/13 and did not reveal obstructive disease. No TLC/RV/DLCO performed. 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 -No exposure to TB Pulmonology was consulted for evaluation of the patients lung masses as well as the pleural effusion. Review of Systems: See HPI PMH Past Medical History Hypertension Hyperlipidemia Peripheral vascular disease s/p stenting with re-occlusion of the superficial femoral veins and posterior tibial Hx Any Other Health Problems?: NoHx Diabetes: No Surgical History Multiple stents placed in peripheral arteries of the legs. Home Medications Lisinopril ASA Atorvastatin Clopidogrel Noted that patient stopped taking these a couple weeks ago as he felt they made him sick. Allergies: Coded Allergies: No Known Allergies (Unverified , 12/31/16) Family History Family History No known family history of lung or heart disease; no hx of cancer Social History Hx Alcohol Use: No (Denies)Hx Substance Use: NoHx Tobacco Use: Yes Smoking Status: Former Smoker Exam Vital Signs Vital Sign - Last Date Time Temp Pulse Resp B/P Pulse Ox O2 Delivery O2 Flow Rate FiO2 01/01/17 10:33 92 01/01/17 08:42 36.3 21 124/75 95 Nasal Cannula 3.00 Intake and Output 12/31/16 12/31/16 01/01/17 Cumulative From/Thru 15:00 23:00 07:00 12/31/16 10:40 - 01/01/17 06:55 Intake Total 450 ml 675 ml 1125 ml Balance 450 ml 675 ml 1125 ml Intake Oral 450 ml 400 ml 850 ml IV Total 275 ml 275 ml # Voids 2 2 # Bowel Movements 1 1 General: Alert, Oriented X3 Eyes: PERRLA Mouth: Mucous Membr Moist/[place] Chest & Lungs: Chest Wall Normal, Other (rhonchi throughout; decreased inhalatory breath sounds on the left with rhonchus course sounds on exhalation) Cardiovascular: Exam Unremarkable Abdomen: Non-tender, Normoactive bowel tones Extremities: No cyanosis/clubbing/edma bilat, No Edema Neurological: Grossly Neurologically Intact Lab and Diagnostics Result Diagram: 01/01/17 0535 01/01/17 0535 Assessment & Plan Assessment This is an unfortunate case of a 61 year old male with significant smoking who presented to the ED twice in 1 week due to acute onset of dyspnea that progressively worsened with relief being achieved with drainage of a large left sided bloody pleural effusion. Imaging is notable for bilateral lung masses with the largest being on the left side > 5 cm. CTA also revealed a small PE and he is currently undergoing treatment with a heparin drip. Pt does not wish to stay in the hospital and indicates he will leave AMA today. Discussion with him about the necessity to stay and he agreed to stay until this evening. Problem list -Spiculated left lung mass with likely metastatic masses in the right lobes -Acute pulmonary embolism -Acute hypoxic respiratory failure -Hemorrhagic pleural effusion Plan -We await the cytology report from the thorcentesis. We have called the lab and await a call back; pt was reportedly moved to stat. If the sample is inadequate to characterize the masses than we will set the patient up for BAL to hopefully obtain a concrete characterization prior to following up with oncology. As he is likely to leave today we may have to set this up as an outpatient. If the patient stays tonight than we could tentatively do it within the next day or two , again, this depends on cytology. -Continue the O2; recommend walking the patient to determine home O2 needs/ qualifications -Continue heparin; if possible transition to NOAC prior to leaving AMA Thank you for allowing us to participate in the care of this patient. Problems: VTE Prophylaxis Indicated: VTE on Admission VTE Mechanical Devices: Intermittant Pneumatic CD Resuscitation Status: CPR: Attempt Resuscitation Attending Statement I have seen and examined this patient with the resident physician. Vital signs , labs, imaging have been reviewed. I agree with the assessment and plan above. Please refer to my separately dictated progress note for any modifications to above. Maria L Hopper M.D. Pulmonary and Critical Care medicine Pager [phone] Ashwin Peralta DO Jan 01, 2017 11:17 Maria L Hopper MD Jan 01, 2017 16:19
[2017-01-01] MEDS: Heparin 25K Unit/500mL 0.45 NS 25,000 UNIT in IV Premix 1 EACH IV SCH (12:48)
--- NOTE | 2017-01-01 17:23 | PCM.PNMED ---
Subjective Date of Service Jan 01, 2017 Subjective Breathing much improved after thoracentesis. Pulmonology Awaiting pleural fluid analysis cytology to consider the next step,bronch Exam Vital Signs Vital Sign - Last Date Time Temp Pulse Resp B/P Pulse Ox O2 Delivery O2 Flow Rate FiO2 01/01/17 16:57 36.4 90 22 136/84 97 Nasal Cannula 3.00 Intake and Output 12/31/16 12/31/16 01/01/17 Cumulative From/Thru 15:00 23:00 07:00 12/31/16 10:40 - 01/01/17 06:55 Intake Total 450 ml 675 ml 1125 ml Balance 450 ml 675 ml 1125 ml Intake Oral 450 ml 400 ml 850 ml IV Total 275 ml 275 ml # Voids 2 2 # Bowel Movements 1 1 Exam General: No acute distress, well-developed, well-nourished, appropriately interactive HEENT: Normocephalic, atraumatic. External ears without defect. Pupils equal, round, and reactive to light and accommodation. Anicteric sclerae, moist conjunctivae, and no lid lag. Oropharynx free of erythema and cobble stoning with moist mucosa. Neck: Supple with full range of motion. No jugular venous distension. No lymphadenopathy or thyromegaly. Cardiovascular: Regular rate and irregular rhythm with no murmurs, rubs, or gallops appreciated Pulmonary: Decreased air entry on lung basis. Abdomen: Bowel tones present. Soft, mildly tender to palpation worse on the left flank, nondistended. No hepatosplenomegaly or masses appreciated. Extremities: No clubbing, cyanosis, edema, or lymphadenopathy appreciated. Skin: Normal temperature, turgor, and texture; no rash, ulcers, or subcutaneous nodules appreciated. Neurological: Cranial nerves grossly intact. Normal muscle strength, tone, and bulk. Reflexes, coordination, and sensory function within normal limits. No known gait impairment. Psychiatric: Normal mood and affect. Alert and oriented to person, place, and time. IVs and Medications Medications Reviewed: Medications were reviewed in detail Lab and Diagnostics Result Diagram: 01/01/17 0535 01/01/17 0535 X-Rays, CTs and MRIs X-RAY CHEST ONE VIEW, PORTABLE IMPRESSION: 1. Massive left-sided pleural effusion has significantly increased in the interim. 2. Right upper lobe pulmonary nodule. Dictated by: Bernard Lindsay M.D. on 12/31/2016 at 11:44 CT ANGIO CHEST PULMONARY EMBOLISM IMPRESSION: 1. Exam is positive for minimal pulmonary embolic disease, specifically in the right lower lobe medially such as series 6/image 105. There are likely additional small emboli but overall clot burden is considered low. 2. 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 Several new subpleural metastases in the right posterior costophrenic angle. Note: Report called to Dr. Salazar in the ED at 1430 hrs. on 12/31/2016 Dictated by: Jake El M.D. on 12/31/2016 at 14:16 Assessment & Plan Otis Gonzalez is a 61-year-old man with past medical history significant for hypertension, hyperlipidemia, peripheral vascular disease status post stenting, newly discovered pulmonary nodule and DVT who presented to the [facility] emergency department today from urgent care due to shortness of breath for the last week. #Multiple small pulmonary emboli, acute, present on admission, active -Secondary to malignancy -Continue heparin for now. May switch to Lovenox if no invasive procedure is planned # Chronic issues, present on admission, stable: #New diagnosis of bilateral pulmonary malignancies with inna and pleural metastases as well as left pleural effusion, present on admission, active -Status post thoracentesis. Fluid consistent with exudative. Entire container of pleural fluid was provided to the lab for cytology. -Dr. Hopper consulted, awaiting pleural fluid cytology to decide on the next step, probably bronch -Supplemental oxygen -Procalcitonin slightly elevated but probably due to cancer. No evidence of infection. Breathing much improved after thoracentesis. Afebrile. Hold off antibiotics #Hypertension -Continue home medications #Hyperlipidemia -Continue home medications CODE STATUS: FULL CODE Disposition: Discharge 2- 3 days. Patient wanted to go home AMA because he did not get enough sleep last night. Offered Ambien and counseled. Agrees to stay awaiting pleural fluid cytology VTE Mechanical Devices: Intermittant Pneumatic CD Resuscitation Status: CPR: Attempt Resuscitation Kel Schroeder MD Jan 01, 2017 17:23
--- NOTE | 2017-01-01 17:26 | CONS ---
[address] [address] CONSULTATION REPORT PATIENT: MONTRELL ASCENCIO : 1955 MR#: [id number] ADMIT: 12/31/2016 JOB ID: [id number] DATE OF SERVICE: 01/01/2017 PULMONARY CONSULTATION NOTE: The patient is a 61-year-old man seen in consultation at the request of Dr. Schroeder for lung mass, large pleural effusion. The patient was seen and evaluated with resident physician, Ashwin Peralta DO. Please refer to his separate detailed note for additional information. The following is a brief attending note. HISTORY OF PRESENT ILLNESS: The patient is a 61-year-old man with 40 pack year prior smoking history who presented to the emergency department initially last week on December 24 with increasing shortness of breath. Imaging at that time showed a large left and smaller right pulmonary mass and also a moderate left pleural effusion that was highly suspicious for malignant effusion. He had evidence of thrombosis in the lower extremities, although this appears to be arterial thrombosis. He had multiple enlarged mediastinal and hilar nodes. All of this is extremely concerning for metastatic lung malignancy. The patient was advised to be admitted but he refused admission and wished to leave home with outpatient followup. At that time I was contacted by the emergency department physician but I was about to leave on vacation for a week and returned yesterday. The patient was on my clinic schedule to be seen yesterday but was severely symptomatic and hypoxic and so went to Urgent Care instead earlier in the morning. He was then transferred to the emergency department and then admitted to the hospital because of massive left pleural effusion that nearly filled his hemithorax. He underwent a thoracentesis in the emergency department with 1.3 L of bloody fluid removed. He cannot tell me if he is feeling any significantly better with this and is currently on 3 L nasal cannula. With regards to symptoms, he has had a few weeks of worsening shortness of breath, some cough with sputum. Denies any hemoptysis. He has lost 20 pounds in about a month he thinks. Denies fevers, chills, sweats, headache, abdominal pain, hemoptysis, or any other complaints. He is extremely anxious and scared, and is bringing up leaving the hospital again. Of note, also he had a pulmonary embolism diagnosed on yesterday's chest CT and is now on anticoagulation with a heparin drip. Past medical history, social history, and family history, as well as review of systems, are as per Dr. Peralta's separate detailed note. The complete physical exam is also per his separate note. PHYSICAL EXAMINATION: Vital signs reviewed and he is afebrile. Of note, he is on 3 L oxygen with sats in the mid 90s. General: He is alert, sitting up in bed, but seems anxious. Chest: Decreased/absent breath sounds on the left hemithorax and wheezing on the right side. Extremities: He does have clubbing present. Heart: Regular rate, rhythm. Abdomen: Nontender. Extremities: No lower extremity edema. Skin: No rashes. LABORATORIES: Reviewed. His white count is slightly elevated at 12. Chemistry reviewed. Within normal limits. Procalcitonin is 0.15. Pleural fluid analysis from yesterday shows pH 7.2 white cells with 48% PMNs, 47% lymphs, and 5% eosinophils. LDH of 1300. Protein is 4.2, and this is consistent with an exudate. Cytology is still pending. Cultures are negative so far. ASSESSMENT: 1. Suspected metastatic lung cancer. 2. Suspected malignant left pleural effusion, status post thoracentesis on 3. Segmental pulmonary embolism. 4. Arterial thrombosis in the lower extremity. 5. Emphysema. 6. Acute hypoxic respiratory failure on 3 L nasal cannula. RECOMMENDATIONS: This 61-year-old man is presenting with extensive stage disease with a primary 5 cm mass in the left upper lobe/lingula and a 2 cm spiculated mass in the right upper lobe. His pleural effusion, which was moderate sized last week, has increased in size in one week and is filling the hemithorax. Cytology is pending on this fluid and it is clearly an exudate. If we are able to make a diagnosis on the pleural fluid and get a cell block on which immunohistochemistry can be done, he would not need any additional procedures for tissue diagnosis. However, if the pleural fluid is nondiagnostic then we shall probably plan on doing a bronchoscopy either tomorrow or the day after. We spoke with [facility] and they said the earliest they could give us results on the pleural fluid cytology would be tomorrow morning, so I will discuss the results with the patient and proceed based on that. Obviously he is on anticoagulation for his pulmonary embolism and we would have to interrupt this for the bronchoscopy, but I suspect doing it tomorrow afternoon or Friday would be acceptable as long as we restart the anticoagulation post bronchoscopy. We could probably wait to consult oncology once we have a little more information based on results of the cytology tomorrow morning. The patient is extremely anxious and nervous, and wants to leave the hospital. However, he is clear that he does want to get treated for this disease and I strongly urged him to stay so that the so that we can get his workup done and get him started on treatment as soon as possible. He has requested anxiety medicine and we spoke with Dr. Schroeder and started him on some IV lorazepam to treat his severe anxiety. I will follow up on him tomorrow. Please call for questions. FRANCESCA
--- NOTE | 2017-01-01 17:35 | NUR ---
Heparin infusion: Heparin PTT 48.8. Administered Heparin bolus of 25u/kg (1800u-0.36ml) and increased infusion by 2u to 22u/kg/hr. Next Heparin PTT @ 1930.
--- NOTE | 2017-01-01 18:15 | NUR ---
Guaiac: Stool sent for occult blood on NOC shift positive. MD notified. Order to continue with Heparin infusion as benefit outways risk.
[2017-01-02] MEDS: Sodium Chloride LOK Flush 10 mL Syringe IVFLUSH SCH ×3 (00:30→16:30)
[2017-01-02] MEDS: Heparin 25K Unit/500mL 0.45 NS 25,000 UNIT in IV Premix 1 EACH IV SCH (04:33)
[2017-01-02 05:46] VITALS: PULSE 90
--- NOTE | 2017-01-02 06:09 | NUR ---
Therapeutic PTT / Ambien Continues w/ hep gtt (22u/kg) at 34mL/hour via PIV. PTT's thru NOC: 65.5 and 63.4. next PTT tomorrow AM. Double checks hep thru NOC w/ rim fire charger operator. 1st dose of Ambien given at HS. Patient reports "slept very well after that medication; had a few bizarre dreams, but overall am feeling rested." No ASE noted at this time. CTM for changes.
[2017-01-02] MEDS: Benzocaine-Menthol Lozenge 2/Pkg PO PRN ×3 (07:07→19:22)
[2017-01-02 08:00] VITALS: PULSE 96
[2017-01-02 08:53] VITALS: BP 111/69; PULSE 96; RESP 18; O2SAT 95
--- NOTE | 2017-01-02 09:03 | NUR ---
thick sputum pt coughs until thick sputum comes up, then pot reports wanting to vomit.
[2017-01-02 09:36] LABS: Magnesium 1.8 mg/dL (1.6-2.6)
[2017-01-02 11:28] LABS: BASOPHILS % (AUTO) 0.3 % (0-3); EOSINOPHILS % (AUTO) 0.5 % (0-5); MONOCYTES % (AUTO) 8.9 % (4-12); Mean Corpuscular Hemoglobin 26.5 pg (27.0-35.0); Mean Corpuscular Volume 82.1 fL (81-100); NEUTROPHILS % (AUTO) 79.5 % (40-74); Platelet Count 398 bil/L (150-400)
--- NOTE | 2017-01-02 12:49 | NUR ---
NUTRITION ASSESSMENT: ASSESS:61 YO male presented to the ED initially 12/24 with increasing shortness of breath. Imaging at that time showed a large left and smaller right pulmonary mass and also a moderate left pleural effusion that was highly suspicious for malignant effusion. He had evidence of thrombosis in the lower extremities, although this appears to be arterial thrombosis. He had multiple enlarged mediastinal and hilar nodes. All of this is extremely concerning for metastatic lung malignancy. The patient was advised to be admitted but he refused admission and wished to leave home with outpatient followup. The patient went to Urgent Care 12/30 with severe hypoxia. He was then transferred to the ED an admitted because of massive left pleural effusion that nearly filled his hemithorax. He underwent a thoracentesis in the emergency department with 1.3 L of bloody fluid removed. Oncology not yet consulted, pending results of cytology tomorrow. The patient is extremely anxious and nervous, and wants to leave the hospital. However, he is clear that he does want to get treated for this disease. The patient reports a 20 pound weight loss x 1 month = 11.11% = severe malnutrition. PMHx:Hypertension, hyperlipidemia, peripheral vascular disease. DIET:Heart healthy consistent carb. PO intake 0 - 100% trays. LABS: Reviewed. Na 130, Chloride 94, Cr 0.51, Glu 154, Ca 8.5, Alb 2.4, Procalcitonin 0.15. MEDICATIONS: Reviewed. NUTRITION FOCUSED PHYSICAL ASSESSMENT: GI symptoms / stool: BM x 1 today.Ramez: 21. Skin Integrity: No issues reported. The patient was unavailable for nutrition-focused physical exam today. ANTHROPOMETRICS: Current Wt: 72.7 kgBMI: 25.0 kg/m2.Admit weight: 72.73 kg IBW: 67.27 kg (108% IBW) ESTIMATED NEEDS (SEVERE MALNUTRITION, CANCER CACHEXIA): Calories: 2182 - 2546 kcal (30 - 35 kcal / kg BW) Protein: 109 - 131 g protein (1.5 1.8 g / kg BW) Fluid: Approx. 2545 mL (35 mL / kg BW) NUTRITION DIAGNOSIS: 1)Inadequate oral intake related to increased nutrient needs, as evidenced by 11.11% weight loss x 1 month, severe malnutrition. INTERVENTION: 1) Will add Glucerna and SF Gelatein to trays. 2) Will provide cancer nutrition education packet in anticipation of oncology consult and outpatient follow-up. MONITOR/EVALUATE: Diet / supplement tolerance, PO intake, labs, GI/nutrition status. Follow up per high nutrition risk guidelines.
--- NOTE | 2017-01-02 13:19 | NUR ---
[facility] signed
--- NOTE | 2017-01-02 13:20 | PROG NOTE ---
[address] [address] PROGRESS NOTE PATIENT: MONTRELL ASCENCIO : 1955 MR#: [id number] ADMIT: 12/31/2016 JOB ID: [id number] DATE: 01/02/2017 PULMONARY PROGRESS NOTE: The patient is a 61-year-old man with left and right lung masses, as well as a large likely malignant left pleural effusion with suspected new diagnosis of metastatic lung cancer admitted with hypoxia. INTERVAL HISTORY: Symptom triplett, there is really no change. He is getting lorazepam for anxiety and this seems to be helping. REVIEW OF SYSTEMS: Denies fevers, chills, sweats, chest pain or hemoptysis. PHYSICAL EXAMINATION: Vital signs reviewed. He is afebrile. BP 111/69, sats 95% on 3 L nasal cannula. General: Slightly more lethargic than yesterday, sleeping but awakens easily and answers questions. Chest: Absent breath sounds on the left, especially posteriorly. Some wheezes on the right. LABORATORIES: Reviewed. Received a call from the pathologist that the preliminary cytology on pleural fluid shows large malignant-appearing cells but further testing will need to be done. ASSESSMENT AND RECOMMENDATIONS: 1. Suspected stage IV lung cancer with 5 cm lingular mass, 2 cm right upper lobe mass and massive left pleural effusion that is likely malignant as well. 2. Acute hypoxia. 3. Segmental pulmonary emboli. This 61-year-old man with prior 40 pack year smoking history is presenting with findings as described above. He had a thoracentesis done in the emergency department on the and the fluid is clearly an exudate and cytology on preliminary read shows malignant-appearing cells. We would need a definitive final diagnosis in order to initiate therapy. He is also on anticoagulation with heparin for his PEs. If cytology is nondiagnostic, then plan is to proceed with a bronchoscopy tomorrow for tissue diagnosis. We would have to interrupt his heparin six hours prior, but it can be resumed after the procedure. Please make him n.p.o. at 5 a.m. tomorrow morning so that if we need to do the bronchoscopy there would not be a delay because of his oral status. All of this was discussed with the patient and also with attending caring for the patient, Dr. Schroeder.
[2017-01-02 14:00] VITALS: BP 131/82; PULSE 88; RESP 20; O2SAT 98
--- NOTE | 2017-01-02 15:57 | PCM.PNMED ---
Subjective Date of Service Jan 02, 2017 Subjective breathing continues to improve. preim pleural fluid cytology adenocarcinoma Exam Vital Signs Vital Sign - Last Date Time Temp Pulse Resp B/P Pulse Ox O2 Delivery O2 Flow Rate FiO2 01/02/17 14:00 36.7 88 20 131/82 98 Nasal Cannula 3.00 Intake and Output 01/01/17 01/01/17 01/02/17 Cumulative From/Thru 15:00 23:00 07:00 12/31/16 10:40 - 01/02/17 06:21 Intake Total 1082 ml 622 ml 2829 ml Output Total 750 ml 400 ml 1150 ml Balance 332 ml 222 ml 1679 ml Intake Oral 650 ml 320 ml 1820 ml IV Total 432 ml 302 ml 1009 ml Output Urine Total 750 ml 400 ml 1150 ml # Voids 2 4 # Bowel Movements 1 1 3 Exam General: No acute distress, well-developed, well-nourished, appropriately interactive HEENT: Normocephalic, atraumatic. External ears without defect. Pupils equal, round, and reactive to light and accommodation. Anicteric sclerae, moist conjunctivae, and no lid lag. Oropharynx free of erythema and cobble stoning with moist mucosa. Neck: Supple with full range of motion. No jugular venous distension. No lymphadenopathy or thyromegaly. Cardiovascular: Regular rate and irregular rhythm with no murmurs, rubs, or gallops appreciated Pulmonary: Decreased air entry on lung basis. Abdomen: Bowel tones present. Soft, mildly tender to palpation worse on the left flank, nondistended. No hepatosplenomegaly or masses appreciated. Extremities: No clubbing, cyanosis, edema, or lymphadenopathy appreciated. Skin: Normal temperature, turgor, and texture; no rash, ulcers, or subcutaneous nodules appreciated. Neurological: Cranial nerves grossly intact. Normal muscle strength, tone, and bulk. Reflexes, coordination, and sensory function within normal limits. No known gait impairment. Psychiatric: Normal mood and affect. Alert and oriented to person, place, and time. IVs and Medications Medications Reviewed: Medications were reviewed in detail Lab and Diagnostics Result Diagram: 01/02/1784201/02/17842 X-Rays, CTs and MRIs X-RAY CHEST ONE VIEW, PORTABLE IMPRESSION: 1. Massive left-sided pleural effusion has significantly increased in the interim. 2. Right upper lobe pulmonary nodule. Dictated by: Bernard Lindsay M.D. on 12/31/2016 at 11:44 CT ANGIO CHEST PULMONARY EMBOLISM IMPRESSION: 1. Exam is positive for minimal pulmonary embolic disease, specifically in the right lower lobe medially such as series 6/image 105. There are likely additional small emboli but overall clot burden is considered low. 2. 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 Several new subpleural metastases in the right posterior costophrenic angle. Note: Report called to Dr. Salazar in the ED at 1430 hrs. on 12/31/2016 Dictated by: Jake El M.D. on 12/31/2016 at 14:16 Assessment & Plan Otis Gonzalez is a 61-year-old man with past medical history significant for hypertension, hyperlipidemia, peripheral vascular disease status post stenting, newly discovered pulmonary nodule and DVT who presented to the [facility] emergency department today from urgent care due to shortness of breath for the last week. #Multiple small pulmonary emboli, acute, present on admission, active -Secondary to malignancy -Continue heparin for now. May switch to Lovenox if no invasive procedure is planned #New diagnosis of bilateral pulmonary malignancies with inna and pleural metastases as well as left pleural effusion, present on admission, active -Status post thoracentesis. Fluid consistent with exudative. Entire container of pleural fluid was provided to the lab for cytology. -Dr. Hopper consulted, prelim pleural fluid cytology probable adenocarcinoma , awaiting final cytology and probably bronch tomorrow if cytology is not diagnostic -will consult oncology tomorrow -Supplemental oxygen -Procalcitonin slightly elevated but probably due to cancer. No evidence of infection. Breathing much improved after thoracentesis. Afebrile. Hold off antibiotics #Hypertension -Continue home medications #Hyperlipidemia -Continue home medications CODE STATUS: FULL CODE Disposition: Discharge 2- 3 days. VTE Mechanical Devices: Venous Foot Pump Resuscitation Status: CPR: Attempt Resuscitation Kel Schroeder MD Jan 02, 2017 15:56
[2017-01-02] MEDS ORDERED: Heparin 25K Unit/500mL 0.45 NS 25,000 UNIT in IV Premix 1 EACH IV SCH (16:20)
[2017-01-02 17:03] VITALS: BP 121/79; PULSE 87; RESP 20; O2SAT 97
[2017-01-02 20:53] VITALS: BP 118/83; PULSE 90; RESP 18; O2SAT 97
[2017-01-03] VITALS (13 sets, daily range): BP systolic 102–133; BP diastolic 62–85; PULSE 82–98; RESP 16–20; O2SAT 94–98
[2017-01-03] MEDS: Sodium Chloride LOK Flush 10 mL Syringe IVFLUSH SCH ×3 (01:03→18:43)
--- NOTE | 2017-01-03 01:43 | NUR ---
Heparin infusion Heparin infusion stopped at 0100 per MD order. Patient is also NPO.
[2017-01-03] MEDS ORDERED: EPINEPHrine 0.1 mg/mL 10 mL Syringe ONE (06:29)
[2017-01-03] MEDS ORDERED: Lidocaine Topical 2% 30 mL Jelly ONE (06:52)
[2017-01-03] MEDS ORDERED: Lidocaine PF 2% 10 mL Inj ONE (06:52)
[2017-01-03 07:05] LABS: INR 1.16 ratio
[2017-01-03] MEDS: Lactated Ringer's 1,000 ML IV SCH ×2 (07:22→07:46)
[2017-01-03] MEDS ORDERED: Lactated Ringer's 500 ML IV PRN (07:22)
--- NOTE | 2017-01-03 07:22 | PCM.HPANE ---
Patient Data Surgeon Admitting Provider:Rex Watson Attending Provider:Kel Schroeder MD Primary Care Physician:Nopjaswinder Other Provider: Reason for Visit Acute Pulmonary Embolism, Lt Plural Effusion Ht/WT & BMI Height (Feet): 5 Height (Inches): 7.00 Weight (Kilograms): 72.700 Body Mass Index 25.00 Allergies Coded Allergies: No Known Allergies (Unverified , 12/31/16) Past Anesthesia History Anesthesia History: Denies:: Abnormal Airway, Anesthesia Reactions, Difficult Intubation, Fam Anesthesia Reaction, Fam Malignant Hypertherm, Malignant Hyperthermia Diabetes History Hx Diabetes?: No MRSA MRSA: No Medications Reported Medications Acetaminophen/Codeine 300-30mg 1 Each Tablet2 Tablet PO Q6H PRN Pain Ref 0 12/31/16 Clopidogrel Bisulfate (Plavix)75 Mg [id number] Mg PO DAILY 30 Days Ref 0 01/23/16 Lisinopril 5 Mg Tablet5 Mg PO DAILY #30 TABLET Ref 0 01/22/16 Aspirin 81 Mg [id number] Mg PO DAILY Ref 0 01/22/16 Atorvastatin Calcium 20 Mg [id number] Mg PO DAILY 06/30/14 History History of ENT Problems?: No HEENT History: Positive for:: Cataracts (surgically corrected) Denture Type: None Teeth Condition: Missing Teeth Other History/Comment Missing multiple teeth upper and lower. No loose teeth Hx of Heart Problems?: No Cardiovascular History: Positive for:: Cardiac Surgery (iliac artery) Hypertension Denies:: Chest Pain Congestive Heart Failure Edema Heart Murmur Irregular Heartbeat Hx of Respiratory Problem?: Yes Respiratory History: Positive for:: Dyspnea Pneumonia (Remote 15-20 years ago) Denies:: Tuberculosis Other History/Comment Records reviewed. Large pleural effusion, despite over 1 L thoracentesis. Lung masses. Small PE's. Breathing is improved after thoracentesis but he is still SOB Hx Neurologic Problems?: No Hx of GI Problems?: No Hx of Problems?: No Hx Musculoskeletal Problems?: No Musculoskeletal History: Positive for:: Back Injury (MUSCLE STRAIN LOWER BACK) Hx of Psycho/Social Problems?: No Hx Surgeries?: No Hx Any Other Health Problems?: No Other History: Denies:: Cancer Hospitalization Thyroid Disease History Blood Transfusions: Positive for:: Accept Blood Products? Denies:: Blood Transfuse Reaction Blood Transfusions Hx Diabetes: No Hx Alcohol Use: No (Denies)Hx Substance Use: No Smoking Status: Former Smoker Have You Smoked inLast 12 mo: No Stop/Bang Treated for Sleep Apnea?: No Do You Have a CPAP Machine?: No S-Snoring: Do You Snore Loudly: No T-Tired: feel tired, fatigued: Yes O-Obsered: Observed not breath: No P-Blood Pressure: treated: Yes B- Body Mass Index > 35 kg/m2: No A- Age over 50: Yes N- Neck Large Circumference: No G- Gender Male: Yes LYNN Total Score: 3 Risk Assessment Category Category 1A: Patient has history of documented sleep apnea, and HAS NOT received any narcotic, sedative or anesthesia administration during this stay. Category 1B: Patient has history of documented sleep apnea, and HAS received any narcotic , sedative or anesthesia administration during this stay Category 2: Patient has SUSPECTED Obstructive Sleep Apnea, and HAS received any narcotic , sedative or anesthesia administration during this stay. Category 3: Patient has SUSPECTED Obstructive Sleep Apnea and HAS NOT received narcotic, sedative or anesthesia administration during this stay. Category 4: Outpatient in Procedural Areas with known sleep apnea or who screen positive for High Risk via the STOP/BANG questionnaire. Exam Exam Vital Signs Vital Signs Date Time Temp Pulse Resp B/P Pulse Ox O2 Delivery O2 Flow Rate FiO2 01/03/17 07:13 95 16 123/75 98 Nasal Cannula 3 01/03/17 06:03 36.9 90 18 122/78 96 Nasal Cannula 2.50 01/03/17 05:55 90 01/03/17 01:48 95 01/03/17 01:16 Supplement Oxygen 01/03/17 01:15 36.9 88 20 120/78 96 Nasal Cannula 2.50 General Appearance: Alert, Oriented X3 HEENT/AIRWAY: MP 2, Neck Movement (FRM), Other (Missing multiple teeth) Lungs: Clear to Auscultation, Clear to Percussion Heart: Exam Unremarkable, Regular Rate/Rhythm Meds/Labs/Diagnostics Labs Test 12/31/16 12:02 12/31/16 16:45 12/31/16 19:42 01/02/17 08:43 D-Dimer 16.29mg/L FEU (<0.50) Lactate Dehydrogenase 454U/L (100-190) Troponin T 0.010ug/L (0.0-0.011) Body Fluid Source Pleural fluid Body Fluid Color Red (Clear) Body Fluid Appearance Cloudy Body Fluid pH 7.2 (Not Estab.) Body Fluid WBC 1000/mm3 Body Fluid RBC 3400/mm3 Body Fluid Polynuclear WBCs 48% Body Fluid Lymphocytes 47% Body Fluid Monocytes 0% Body Fluid Eosinophils 5% Body Fluid Basophils 0% Body Fluid Lactate Dehydrogenase 1306U/L Body Fluid Comment Pleural Fluid Total Protein 4.2g/dL Pleural Fluid Glucose 41mg/dL Blood Smear Pathologist Review White Blood Count 13.1th/mm3 (3.8-10.1) Red Blood Count 3.58mil/mm3 (4.40-5.80) Hemoglobin 9.5g/dL (13.8-17.2) Hematocrit 29.4% (41.0-50.0) Mean Corpuscular Volume 82.1fL (81-100) Mean Corpuscular Hemoglobin 26.5pg (27.0-35.0) Mean Corpuscular Hemoglobin Concent 32.3% (32.0-37.0) Red Cell Distribution Width 15.4% (12.3-15.4) Platelet Count 398bil/L (150-400) Neutrophils (%) (Auto) 79.5% (40-74) Lymphocytes (%) (Auto) 10.1% (14-46) Monocytes (%) (Auto) 8.9% (4-12) Eosinophils (%) (Auto) 0.5% (0-5) Basophils (%) (Auto) 0.3% (0-3) Sodium Level 130mEq/L (134-144) Potassium Level 4.1mEq/L (3.5-5.2) Chloride Level 94mEq/L (97-108) Carbon Dioxide Level 21mmol/L (18-29) Blood Urea Nitrogen 10mg/dL (8-27) Creatinine 0.51mg/dL (0.76-1.27) Estimat Glomerular Filtration Rate 174mL/min (>59) Glucose Level 154mg/dL (60-99) Calcium Level 8.1mg/dL (8.5-10.1) Magnesium Level 1.8mg/dL (1.6-2.6) Total Bilirubin 0.8mg/dL (0.0-1.2) Aspartate Amino Transf (AST/SGOT) 38U/L (0-50) Alanine Aminotransferase (ALT/SGPT) 37U/L (0-44) Alkaline Phosphatase 98U/L (25-160) Total Protein 5.5g/dL (6.4-8.4) Albumin 2.4g/dL (3.4-5.0) Procalcitonin 0.15ng/mL (0.00-0.08) Test 01/03/17 06:34 Prothrombin Time 12.4sec (8.1-12.5) Prothromb Time International Ratio 1.16ratio Activated Partial Thromboplast Time 30.7sec (22.8-33.0) Plan Impression Patient chart reviewed, patient interviewed and anesthestic plan with risks, benefits, and alternatives discussed, and informed consent obtained. ASA Physical Status: ASA4 Life Threatening (pleural effusions, PE's, lung masses) Anesthetic Plan: MAC (with GA as backup) Bene/Risks/Altern/Consents: Yes HP Complete Prior to Induction: Yes Walter Raya MD Jan 03, 2017 07:22
[2017-01-03] MEDS ORDERED: HYDROmorphone 1 mg/mL Inj IVPUSH PRN (07:25)
[2017-01-03] MEDS ORDERED: Labetalol 5 mg/mL 4 mL Inj IV PRN (07:25)
[2017-01-03] MEDS ORDERED: MetoCLOpramide 5 mg/mL 2 mL Inj IVPUSH PRN (07:25)
[2017-01-03] MEDS ORDERED: fentaNYL-PF 50 mCg/mL 2 mL Inj IVPUSH PRN (07:25)
[2017-01-03] MEDS ORDERED: Ondansetron 2 mg/mL 2 mL Inj IVPUSH PRN (07:25)
[2017-01-03] MEDS ORDERED: Atropine 0.4 mg/mL Inj IVPUSH PRN (07:25)
[2017-01-03] MEDS ORDERED: EPHEDrine Sulfate 50 mg/mL Inj IVPUSH PRN (07:25)
[2017-01-03] MEDS ORDERED: Phenylephrine 10,000 mCg/mL Inj IVPUSH PRN (07:25)
--- NOTE | 2017-01-03 07:28 | NUR ---
Bronchoscopy INR added to am aPTT for procedure this AM. Escorted off floor via Endo personnel and gurney. Tele notified.
--- NOTE | 2017-01-03 08:21 | PCM.ANEP1 ---
Post Anesthesia PACU Phase 1 Assessment Vital Signs Vital Signs Date Time Temp Pulse Resp B/P Pulse Ox O2 Delivery O2 Flow Rate FiO2 01/03/17 08:13 36.4 94 18 128/85 94 Nasal Cannula 6 01/03/17 07:13 95 16 123/75 98 Nasal Cannula 3 01/03/17 06:03 36.9 90 18 122/78 96 Nasal Cannula 2.50 01/03/17 05:55 90 01/03/17 01:48 95 01/03/17 01:16 Supplement Oxygen 01/03/17 01:15 36.9 88 20 120/78 96 Nasal Cannula 2.50 Anesthetic Administered: MAC Level of Alertness: Awake, talking REYNOLDS's with Equal Strength: Yes Pain: No Nausea or Vomiting: No CV Function & Hydration Stable: Yes Airway Device: Lungs: Clear to Auscultation, Clear to Percussion PACU Phase 2 Assessment Complications: No Follow up Care: No Patient Instructions Provided: N/A Comments See anesth record for PACU VS. PACU VSS Walter Raya MD Jan 03, 2017 08:21
--- NOTE | 2017-01-03 09:03 | DRSVH ---
PROCEDURE: X-RAY CHEST ONE VIEW, PORTABLE ([id number]) INDICATIONS: RULE OUT PNEUMO TECHNIQUE: One view of the chest was acquired. COMPARISON: [facility], CR, XR CHEST 1VW, 12/31/2016, 16:24. FINDINGS: Surgical changes and devices: None. Lungs and pleura: No pneumothorax. Loculated left pleural effusion has decreased in size and there is improved aeration of the left lung. Unchanged appearance of right upper lobe nodule.. Mediastinum: Mediastinal contours appear normal. Heart size is normal. Bones and chest wall: No suspicious bony lesions. Overlying soft tissues appear unremarkable. IMPRESSION: Moderate loculated left pleural effusion, decreased in size. Improved aeration of the left lung. Unchanged appearance of the right upper lobe nodule since 12/31/16 Dictated by: Suraj Shi M.D. on 01/03/2017 at 8:59 Approved by: Suraj Shi M.D. on 01/03/2017 at 9:01
[2017-01-03] MEDS ORDERED: fentaNYL-PF 50 mCg/mL 2 mL Inj ONE (09:10)
[2017-01-03] MEDS: Benzocaine-Menthol Lozenge 2/Pkg PO PRN (09:52)
--- NOTE | 2017-01-03 12:19 | ENDO ---
[address] [address] ENDOSCOPY PROCEDURE PATIENT: MONTRELL ASCENCIO : 1955 MR#: [id number] ADMIT: 12/31/2016 JOB ID: [id number] DATE OF SERVICE: 01/03/2017 PROCEDURE: Bronchoscopy performed by Maria L Hopper MD. INDICATION: Left lung mass. DESCRIPTION OF PROCEDURE: Informed consent was obtained from the patient after the risks and benefits of the procedure were discussed. The patient was asked to gargle lidocaine. Additional lidocaine was administered via atomizer to the oropharynx. IV sedation was administered by anesthesiologist. The scope was then passed through the mouth. Epiglottis and vocal cords were visualized and normal in appearance. Additional lidocaine was administered here. Scope was passed through the cords and trachea was visualized and normal. Additional lidocaine was administered throughout the trachea and bilateral airways. We then proceeded to do a complete airway inspection. All of the right-sided airways were normal and patent. On the left side, however, starting at the level of the left upper lobe airway takeoff there was increased airway edema, even in the lower lobe airways; however, the lower lobe airways were patent. The left upper lobe, however, showed extremely edematous airways. The lingular airways were slightly edematous but at least identifiable as two separate segmental airways; however, the upper lobe was extremely narrowed and compressed, likely by extrinsic tumor, with a single narrow lumen visible. We proceeded to do biopsies in this single lumen of the left upper lobe airway, as well as the two lingular airways. Multiple samples were obtained totaling nearly 14 of which there were at least seven or eight good-sized samples. The patient tolerated the procedure well, with minimal bleeding for which epinephrine was administered periodically topically. SAMPLES: Endobronchial biopsies in the left upper lobe and lingula sent for pathology. MEDICATIONS: Please refer to separate anesthesiologist note, but he received topical lidocaine about 12 mL, topical epinephrine 3 mL, and 4 mg of midazolam and 100 mcg of fentanyl. COMPLICATIONS: He was coughing as expected during the procedure. ESTIMATED BLOOD LOSS: Less than 10 cc FINDINGS: Left upper lobe airway significantly narrowed and compressed extrinsically. Also edema in the lingular airways and airway compression. Chest x-ray pending post procedure to rule out pneumothorax.
--- NOTE | 2017-01-03 12:30 | DRSVH ---
PROCEDURE: X-RAY CHEST ONE VIEW, PORTABLE ([id number]) INDICATIONS: POST-THORACENTESIS TECHNIQUE: One view of the chest was acquired. COMPARISON: 01/03/2017 FINDINGS: Surgical changes and devices: None. Lungs and pleura: Left pleural effusion is smaller postthoracentesis. No pneumothorax seen. The small mass in the right upper lobe is unchanged. Larger mass lesion in the left upper lobe estimated at 3 x 5 cm. Atelectatic changes and densities at the left base.. Mediastinum: Mediastinal contours appear normal. Heart size is normal. Bones and chest wall: No suspicious bony lesions. Overlying soft tissues appear unremarkable. IMPRESSION: 1. Diminished left pleural effusion post thoracentesis. No apparent pneumothorax. 2. Bilateral mass lesions left greater than right. Dictated by: Jake El M.D. on 01/03/2017 at 12:26 Approved by: Jake El M.D. on 01/03/2017 at 12:28
--- NOTE | 2017-01-03 13:02 | PROG NOTE ---
[address] [address] PROGRESS NOTE PATIENT: MONTRELL ASCENCIO : 1955 MR#: [id number] ADMIT: 12/31/2016 JOB ID: [id number] DATE: 01/03/2017 PULMONARY PROGRESS NOTE: The patient is a 61-year-old man with left upper lobe and right upper lobe lung masses with malignant left pleural effusion as well as pulmonary embolism. INTERVAL HISTORY: He underwent bronchoscopy this morning with biopsies done in the left upper lobe and lingula which are pending. Subsequent to that, since he was still off anticoagulation, we decided to do a therapeutic thoracentesis as well and drain off as much as possible. Please refer to the separate detailed procedure note. With regard to symptoms, there really has not been any change, although he did start having some left anterior chest pain toward the end of the thoracentesis which I suspect is due to re-expansion of the lung. Other than that, dyspnea, cough, sputum have been unchanged. REVIEW OF SYSTEMS: No fevers, chills, sweats. PHYSICAL EXAMINATION: Vital signs reviewed. He is afebrile. Pulse 88, respirations 20, BP 120/67, and sats 95% on 2 L nasal cannula. General: Sitting up in bed. Alert. Chest: Clear on the right, but decreased to absent breath sounds on the left. Abdomen: Soft, nontender. Neck: Of note, he does have swelling and tenderness on the right side of his neck which I think could be due to lymphadenopathy. LABORATORIES: Reviewed, including CBC, chemistry, and coags. I still do not see a cytology report on his pleural fluid, although pleural fluid analysis status discussed before shows LDH of 1300 and protein of 4.2, which is consistent with an exudate. ASSESSMENT: 1. A 5 cm left upper lobe/lingular mass and a 2 cm right upper lobe mass, as well as large malignant left pleural effusion, all consistent with stage 4 lung cancer. 2. Segmental pulmonary emboli. 3. Acute hypoxic respiratory failure. RECOMMENDATIONS: This 61-year-old man with 40 pack-year smoking history presented to the emergency department last week with dyspnea and was found to have bilateral lung masses and a left pleural effusion. He left AMA and then returned to be readmitted early this week, now with a pulmonary embolism in addition. He had a thoracentesis on the day of presentation December 31, but the final cytology on this is still pending. At first I hoped we could get a diagnosis from cytology but this is looking more and more questionable. The patient has been anxious to go home throughout so I went ahead and did a bronchoscopy this morning with multiple biopsies in the left upper lobe and lingula as described in the separate procedure note. I will make a call to pathology and ask them for an expedited result on this. Also, despite his initial thoracentesis, all of the fluid was not removed and he is still symptomatic, short of breath on 3 L oxygen, so we repeated a thoracentesis today because we had a window with him off anticoagulation this morning right after the bronchoscopy. 1500 mL of bloody fluid similar to prior was removed. Toward the end of the procedure the patient began having left anterior chest pain which I suspect is from reexpansion of the lung and pleuritic in nature. We treated this with pain medication and a followup chest x-ray to rule out pneumothorax is pending for both the bronch and the thoracentesis. I spoke with Dr. Schroeder and suggested that the patient be on a simpler regimen of anticoagulation because I have significant concerns with his ability to be compliant. We have discussed Xarelto as a good option in him and he is going to try to get that arranged for him prior to discharge. He is also going to contact Medical Oncology and ask them to consult on this patient so he has appropriate outpatient followup. I will follow up tomorrow to see the patient.
--- NOTE | 2017-01-03 13:26 | NUR ---
Social Work: Brief Note requested TUNNEL INSPECTOR run prescription cost for pt. [facility] is preferred pharmacy. Costs are as follows: Xarelto: $2.52 and $3.70 Pradaxa: $3.70 Eliquis: $3.70 TUNNEL INSPECTOR updated . Mary Alvarez TUNNEL INSPECTOR
--- NOTE | 2017-01-03 13:36 | PCM.PNMED ---
Subjective Date of Service Jan 03, 2017 Subjective Underwent bronchoscopy and therapeutic thoracentesis today. breathing improved. Oncology consulted. Started on elequis. Exam Vital Signs Vital Sign - Last Date Time Temp Pulse Resp B/P Pulse Ox O2 Delivery O2 Flow Rate FiO2 01/03/17 11:45 93 01/03/17 09:25 36.6 20 120/67 95 Nasal Cannula 2.50 Intake and Output 01/02/17 01/02/17 01/03/17 Cumulative From/Thru 15:00 23:00 07:00 12/31/16 10:40 - 01/03/17 01:16 Intake Total 800 ml 650 ml 4279 ml Output Total 350 ml 1500 ml Balance 450 ml 650 ml 2779 ml Intake Oral 800 ml 2620 ml IV Total 650 ml 1659 ml Output Urine Total 350 ml 1500 ml # Voids 1 5 # Bowel Movements 1 4 Exam General: No acute distress, well-developed, well-nourished, appropriately interactive HEENT: Normocephalic, atraumatic. External ears without defect. Pupils equal, round, and reactive to light and accommodation. Anicteric sclerae, moist conjunctivae, and no lid lag. Oropharynx free of erythema and cobble stoning with moist mucosa. Neck: Supple with full range of motion. No jugular venous distension. No lymphadenopathy or thyromegaly. Cardiovascular: Regular rate and irregular rhythm with no murmurs, rubs, or gallops appreciated Pulmonary: Decreased air entry on lung basis. Abdomen: Bowel tones present. Soft, mildly tender to palpation worse on the left flank, nondistended. No hepatosplenomegaly or masses appreciated. Extremities: No clubbing, cyanosis, edema, or lymphadenopathy appreciated. Skin: Normal temperature, turgor, and texture; no rash, ulcers, or subcutaneous nodules appreciated. Neurological: Cranial nerves grossly intact. Normal muscle strength, tone, and bulk. Reflexes, coordination, and sensory function within normal limits. No known gait impairment. Psychiatric: Normal mood and affect. Alert and oriented to person, place, and time. IVs and Medications Medications Reviewed: Medications were reviewed in detail Lab and Diagnostics Result Diagram: 01/02/17 0843 01/02/17 0843 X-Rays, CTs and MRIs X-RAY CHEST ONE VIEW, PORTABLE IMPRESSION: 1. Massive left-sided pleural effusion has significantly increased in the interim. 2. Right upper lobe pulmonary nodule. Dictated by: Bernard Lindsay M.D. on 12/31/2016 at 11:44 CT ANGIO CHEST PULMONARY EMBOLISM IMPRESSION: 1. Exam is positive for minimal pulmonary embolic disease, specifically in the right lower lobe medially such as series 6/image 105. There are likely additional small emboli but overall clot burden is considered low. 2. 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 Several new subpleural metastases in the right posterior costophrenic angle. Note: Report called to Dr. Salazar in the ED at 1430 hrs. on 12/31/2016 Dictated by: Jake El M.D. on 12/31/2016 at 14:16 Additional Diagnostics Bronchoscopy FINDINGS: Left upper lobe airway significantly narrowed and compressed extrinsically. Also edema in the lingular airways and airway compression. Chest x-ray pending post procedure to rule out pneumothorax. Maria L Hopper MD 01/03/17 0820 Assessment & Plan Otis Gonzalez is a 61-year-old man with past medical history significant for hypertension, hyperlipidemia, peripheral vascular disease status post stenting, newly discovered pulmonary nodule and DVT who presented to the [facility] emergency department today from urgent care due to shortness of breath for the last week. #Multiple small pulmonary emboli, acute, present on admission, active -Secondary to malignancy -Initially started on heparin. Held today for bronchoscopy and therapeutic thoracentesis. No invasive procedure planned for now. Discussed with oncology , patient reluctant to use Lovenox injections. started elequis #New diagnosis of lung adenocarcinoma with inna and pleural metastases as well as malignant left pleural effusion, present on admission, active -Status post thoracentesis 01/01 and 01/03 . s/p bronchoscopy 01/03. Fluid consistent with exudative. prelim pleural fluid cytology probable adenocarcinoma, -Dr. Hopper consulted, - consulted oncology Dr Bob ,MRI brain,CT abdomen/pelvis requested .he will follow him up outpatient -Supplemental oxygen -Procalcitonin slightly elevated but probably due to cancer. No evidence of infection. Breathing much improved after thoracentesis. Afebrile. Hold off antibiotics #Hypertension -Continue home medications #Hyperlipidemia -Continue home medications CODE STATUS: FULL CODE Disposition: Discharge tomorrow VTE Mechanical Devices: Venous Foot Pump Resuscitation Status: CPR: Attempt Resuscitation Kel Schroeder MD Jan 03, 2017 13:36
--- NOTE | 2017-01-03 15:06 | NUR ---
Social Work: Initial Assessment / Multidisciplinary Rounds / Readiness for d/c Data: Pt is a 61 y/o male admitted for acute PE. Pt's insurance is Medicare, pt's PCP is not listed. EMR reviewed. Readmit score it 2, low. Pt discussed in rounds. MD states pt likely to d/c in 1-2 days. Oncology following pt. GOLD CUTTER met with pt at bedside, role explained. Pt states he lives alone in [place], has a neighbor upstairs who he lists as his next point of contact if needed: Kumar Hernandez. Pt states he uses no DME, has 8 stairs to enter his basement apartment, pt has no hx of HH or SNF, no LTC or VA benefits, pt is not a caregiver. GOLD CUTTER will continue to follow for possible d/c planning needs. Assessment: Pt who is independent at baseline and currently capable of self care. Plan: Pt will d/c home via taxi or [place], per pt, when medically stable. GOLD CUTTER will continue to follow. DUANE Talbot Addendum: 01/03/17 at 1509 by ANNAMARIE REYNOSO Amended: Links added.
--- NOTE | 2017-01-03 16:33 | DRSVH ---
PROCEDURE: CT ABDOMEN AND PELVIS WITH CONTRAST ([id number]) INDICATIONS: R/O METS TECHNIQUE: After the administration of oral and intravenous contrast, 5 mm thick sections acquired from the diap hragms to the symphysis. 5 mm thick coronal and sagittal reformats were performed. For radiation do se reduction, the following was used: automated exposure control, adjustment of mA and/or kV accordi ng to patient size. COMPARISON: [facility], CT, CT ANGIO CHEST PE, 12/31/2016, 13:46. FINDINGS: Image quality: Excellent. ABDOMEN: Lung bases: Partially visualized moderate left pleural effusion with nodular pleural thickening in ke eping with malignant effusion and pleural metastases. There is a 3 mm nodule seen in the right lung b ase. There is trace right pleural fluid. Small hiatal hernia. Solid organs: Mild hepatic steatosis. No focal hepatic lesion. Spleen unremarkable.. Gallbladder neg ative. Biliary system is non-dilated. Pancreas enhances normally. No adrenal nodules. Kidneys are normal in size and enhancement, without hydronephrosis. Simple appearing left renal cyst measuring 1 .5 cm. Peritoneum and bowel: No evidence of bowel obstruction. Normal appendix. No free fluid or air. Colon ic diverticulosis is seen without evidence of acute diverticulitis. The rectum is grossly unremarkabl e. Nodes and vessels: No retroperitoneal or mesenteric adenopathy. Aorta and inferior vena cava are no rmal in caliber. Miscellaneous: Small fat-containing periumbilical hernia. PELVIS: Genitourinary: Bladder wall thickness is normal. Miscellaneous: No inguinal hernias or adenopathy. Bones: No suspicious bony lesions. No vertebral body compression fractures. IMPRESSION: Redemonstration of multiple left pleural nodular metastases with malignant pleural effusion. 3 mm right lung base pleural-based nodule. No evidence of metastatic disease in the abdomen/pelvis. Colonic diverticulosis. Small hiatal hernia. Mild hepatic steatosis. Left renal cyst. Dictated by: Suraj Shi M.D. on 01/03/2017 at 16:19 Approved by: Suraj Shi M.D. on 01/03/2017 at 16:32
--- NOTE | 2017-01-03 17:44 | CONS ---
[address] [address] CONSULTATION REPORT PATIENT: MONTRELL ASCENCIO : 1955 MR#: [id number] ADMIT: 12/31/2016 JOB ID: [id number] DATE OF SERVICE: 01/03/2017 INPATIENT MEDICAL ONCOLOGY CONSULTATION: REQUESTING PROVIDER: Kel Schroeder MD REASON FOR REFERRAL: Advanced thoracic malignancy, highly suspect stage 4 primary lung cancer. HISTORY OF PRESENT ILLNESS: The patient is a 61-year-old former smoker male who lives alone with limited family or friend network in [place], presenting with about a 2-week history of progressive cough and persistent dyspnea. He initially presented to ED about 10 days ago on December 24 with the same symptoms and had a chest CT with contrast on that day which showed a solid mass in the left upper lobe measuring about 5.3 cm in size and another solid mass in the lateral right upper lobe measuring about 2 cm in size. These were previously demonstrated on an old chest CT from November 2013, and at that time there was a 4 cm ground-glass area in the left upper lobe, and a small 3 mm nodule in the right upper lobe. On current study there was also a moderate to large, partially loculated left pleural effusion causing peripheral compressive atelectasis of the left upper and lower lobes. There were pleural nodular enhancing lesions within the posterior left lower thorax. There was a 5 mm nodule in the posterolateral right lung base. There were multiple enlarged mediastinal and bilateral hilar lymph nodes, measuring up to 2 cm short axis. At the same ED visit the patient complained of bilateral lower extremity pain and given his history of peripheral arterial disease Doppler arterial ultrasounds of bilateral legs were obtained. This study showed occlusion of proximal right and entire left superficial femoral artery with likely reconstitution of the distal right superficial femoral artery via collaterals and reconstitution of the left popliteal artery via collaterals. The patient was offered hospital admission on December 24 but he refused and left the ER. His dyspnea progressed and he ended up returning back to the ER three days ago on December 31. A CT chest angiogram was obtained on December 31 and this time there is minimal pulmonary embolic disease, specifically in the right lower lobe medially. There are likely an additional small emboli but overall clot burden is considered low. Otherwise the malignancy is unchanged including bilateral pulmonary masses with inna and pleural metastases as mentioned above and a large left pleural effusion. Several new subpleural metastases have been identified in the right posterior costophrenic angle. A left-sided thoracentesis was done on December 31, 2016. About 1700 mL of bloody fluid was removed, which is definitely exudate, with fluid LDH 1300. Cytology is pending, but per Dr. Schroeder the preliminary report is positive for adenocarcinoma. He underwent a bronchoscopy earlier today by Dr. Hopper. His left-sided airways were edematous, quite more so in the left upper lobe, but no endobronchial mass was seen. Transbronchial biopsies have been taken from the left upper lobe airway and lingular airways, with results still pending. Currently he feels still dyspneic. He is not sure if the thoracentesis helped or not. He continues to have an intermittent cough. He is anxious to leave hospital as soon as possible. PAST MEDICAL HISTORY: 1. Peripheral arterial disease. He has bilateral stents in femoral arteries which subsequently occluded but the circulation is restored partially through the collaterals. He is able to ambulate but has claudication. He does not have any ulcers currently. 2. Hypertension. 3. Dyslipidemia. PAST SURGICAL HISTORY: Multiple stents placed in peripheral arteries of the lower extremities. SOCIAL HISTORY: He lives alone in a rented place. He smoked 1 to 1-1/2 packs per day x40 years and quit about six years ago. He used to drink heavily, but quit about eight years ago. He does not have family members or friends in the area and is single. HOME MEDICATIONS: Aspirin 81 mg daily, atorvastatin 20 mg daily, Plavix 75 mg daily, lisinopril 5 mg daily. ALLERGIES: NKDA. REVIEW OF SYSTEMS: Positive for weight loss, dyspnea, and cough. He denies chest pain and denies hemoptysis. PHYSICAL EXAMINATION: He appears somewhat deconditioned and weak. Awake, alert, oriented x3. Blood pressure 133/71, heart rate 82, temperature afebrile. HEENT: Normal other than poor dentition. Neck: Supple. Without adenopathy. Lungs: Diminished breath sounds over left hemithorax and dull to percussion. Cardiac: Regular rate and rhythm. Abdomen: Soft and nontender, without mass or hepatosplenomegaly. Lower extremities: No edema. LABORATORY DATA: WBC count 13,100 with 80% neutrophils, hemoglobin 9.5, platelet count 398,000. Albumin is low at 2.4. LDH is high at 390. IMPRESSION AND PLAN: A 61-year-old former smoker male with comorbid conditions including hypertension, dyslipidemia, and major peripheral arterial disease presenting with advanced thoracic malignancy including a 5 cm mass in the left upper lobe, a 2 cm mass in the right lung, multiple pleural and bilateral pulmonary metastases, and a large malignant left-sided pleural effusion causing significant atelectasis of the left lung. He has undergone thoracentesis and bronchoscopy. Preliminary cytology of pleural fluid is positive for adenocarcinoma, but formal report is pending. I had a visit with the patient today and explained to him that he appears to have stage 4 lung cancer but definitive pathology report is pending. He has very limited social support. He does have some minimal pulmonary embolism and needs to start anticoagulation therapy. Even though low molecular weight heparins are considered standard of care for cancer related venous thromboembolism, I am not entirely sure about compliance and ability of this patient to self inject twice a day, and I agree with the choice of Eliquis 5 mg b.i.d., which the case manager specialist has found out is fully covered with very little co-pay. RECOMMENDATIONS: 1. MRI of brain with and without contrast, rule out metastases (this has been ordered). 2. CT scan of abdomen and pelvis with contrast, rule out metastases (this has been ordered). 3. Start Eliquis 5 mg b.i.d. 4. The patient can be discharged tomorrow and I will follow up with him early next week in Oncology Clinic. Thank you, Dr. Schroeder, for this consultation.
--- NOTE | 2017-01-03 19:26 | NUR ---
Thoracentesis L thoracentesis this shift by providers, 1500mls dark leigh red fluid removed. O2 remains in place.
--- NOTE | 2017-01-03 22:04 | DRSVH ---
PROCEDURE: MRI BRAIN WITH AND WITHOUT CONTRAST ([id number]) INDICATIONS: LOOKING FOR NEW DX OF CANCER TECHNIQUE: Noncontrast axial T1 spin echo, axial T2 fast spin echo, sagittal and axial FLAIR, coronal T2 fast sp in echo, axial gradient echo, axial diffusion and ADC through the brain. After the administration of contrast, axial and coronal 3D VIBE or T1 spin echo with fat saturation through the brain. COMPARISON: None. FINDINGS: Image quality: Excellent. CSF Spaces: Basal cisterns are patent. No extra-axial fluid collections. Ventricles are normal in size and shape. Brain: No midline shift. No intracranial bleeds or masses. No abnormal intracranial enhancement. The brainstem appears normal. Diffusion-weighted images demonstrate no acute ischemic insults. Scatt ered punctate foci of increased T2 signal noted in the periventricular and subcortical white matter t racts compatible with chronic microvascular ischemic changes. No susceptibility weighted abnormaliti es are identified in the brain parenchyma. Small, chronic, lacunar infarct with surrounding gliosis is noted in the right putamen. Normal intravascular flow voids are present. There is normal contrast enhancement of the dural sinuses. Absence of enhancement noted in the right internal jugular vein d istal to the sigmoid sinus possibly representing thrombus. Skull and face: Calvarial marrow is normal in signal. Orbits appear normal. Sinuses: Sinuses and mastoids appear clear. IMPRESSION: 1. No acute intracranial disease process. 2. No abnormal intracranial mass or abnormal intracranial postcontrast enhancement. 3. Mild, diffuse volume loss. 4. Mild periventricular and subcortical white matter chronic microvascular ischemic changes. 5. Old, small, right putamen lacunar infarct. 6. Possible right internal jugular vein thrombosis. Recommend Doppler ultrasound evaluation. Dictated by: Sarai Silva MD, PhD on 01/03/2017 at 21:55 Approved by: Sarai Silva MD, PhD on 01/03/2017 at 22:02
[2017-01-04] VITALS (7 sets, daily range): BP systolic 100–117; BP diastolic 63–79; PULSE 86–109; RESP 20; O2SAT 90–94
[2017-01-04] MEDS: Sodium Chloride LOK Flush 10 mL Syringe IVFLUSH SCH ×2 (00:14→08:09)
--- NOTE | 2017-01-04 05:57 | NUR ---
Uneventful night Vitals remained stable overnight, patient denied pain. Still has intermittent cough, denied red streaks in sputum. Patient reported being hungry but declined all offered items. Patient reported that he wants to go home as soon as possible today- will pass on to day RN.
--- NOTE | 2017-01-04 10:43 | PCM.DIMED ---
Discharge Instructions Date of Service Jan 04, 2017 Dates of Hospitalization Dec 31, 2016 at 15:50 Discharge Diagnosis Discharge Diagnosis #Multiple small pulmonary emboli, acute, present on admission, active #New diagnosis of lung adenocarcinoma with inna and pleural metastases as well as malignant left pleural effusion, present on admission, active #Hypertension #Hyperlipidemia Diet Discharge Diet: Low fat, Low Sodium Activity Discharge Activity: Limited until seen by PCP Call your provider Call your provider for: Fever or Chills, Shortness of breath, Bleeding, Chest pain, Vomitting, Excessive diarrhea, Weakness (unilateral) Patient Instructions Patient Instructions You were hospitalized due to pulmonary embolism . Please continue Eliquis twice daily . You are also diagnosed with lung cancer .You underwent bronchoscopy and thoracentesis. Please follow up with Dr Bob in 1 week . You may require oxygen in the near future . You did not qualify for oxygen today .Please come back to ED if you feel short of breath . Follow-up Provider: Muna Bob MD Follow-up with PCP in: 1 week Kel Schroeder MD Jan 04, 2017 10:43
[2017-01-04] MEDS ORDERED: APIX5TAB PO (10:45)
[2017-01-04] MEDS ORDERED: OXYC1TAB24 PO (10:50)
--- NOTE | 2017-01-04 10:55 | PCM.DC.MED ---
Discharge Summary Date of Service Jan 04, 2017 Dates of Hospitalization Date of Hospital Admission Dec 31, 2016 at 15:50 Date of Discharge: Jan 04, 2017 Providers: Admitting Physician: Rex Watson Primary Care Physician: [place] Attending Physician: Kel Levy MD Diagnosis at Time of Discharge Diagnosis at Time of Discharge #Multiple small pulmonary emboli, acute, present on admission, active #New diagnosis of lung adenocarcinoma with inna and pleural metastases as well as malignant left pleural effusion, present on admission, active #Hypertension #Hyperlipidemia # PVD Consultations Oncology Dr Bob pulm Dr Hopper Procedures XRay, CTs & MRIs X-RAY CHEST ONE VIEW, PORTABLE IMPRESSION: 1. Massive left-sided pleural effusion has significantly increased in the interim. 2. Right upper lobe pulmonary nodule. Dictated by: Bernard Lindsay M.D. on 12/31/2016 at 11:44 CT ANGIO CHEST PULMONARY EMBOLISM IMPRESSION: 1. Exam is positive for minimal pulmonary embolic disease, specifically in the right lower lobe medially such as series 6/image 105. There are likely additional small emboli but overall clot burden is considered low. 2. 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 Several new subpleural metastases in the right posterior costophrenic angle. Note: Report called to Dr. Salazar in the ED at 1430 hrs. on 12/31/2016 Dictated by: Jake El M.D. on 12/31/2016 at 14:16 PROCEDURE: MRI BRAIN WITH AND WITHOUT CONTRAST ([id number]) INDICATIONS: LOOKING FOR NEW DX OF CANCER IMPRESSION: 1. No acute intracranial disease process. 2. No abnormal intracranial mass or abnormal intracranial postcontrast enhancement. 3. Mild, diffuse volume loss. 4. Mild periventricular and subcortical white matter chronic microvascular ischemic changes. 5. Old, small, right putamen lacunar infarct. 6. Possible right internal jugular vein thrombosis. Recommend Doppler ultrasound evaluation. Dictated by: Sarai Silva MD, PhD on 01/03/2017 at 21:55 PROCEDURE: CT ABDOMEN AND PELVIS WITH CONTRAST ([id number]) INDICATIONS: R/O METS IMPRESSION: Redemonstration of multiple left pleural nodular metastases with malignant pleural effusion. 3 mm right lung base pleural-based nodule. No evidence of metastatic disease in the abdomen/pelvis. Colonic diverticulosis. Small hiatal hernia. Mild hepatic steatosis. Left renal cyst. Dictated by: Suraj Shi M.D. on 01/03/2017 at 16:19 PROCEDURE: US VEINOUS LEG DUPLEX UNILATERAL, RIGHT INDICATIONS: Right leg pain. TECHNIQUE: Real-time imaging, as well as color and pulse Doppler interrogation, were performed of the lower extremity deep veins from the inguinal ligament to the popliteal fossa. COMPARISON: [facility], US, US VENOUS LEG DPLX UNI RT, 01/23/2016, 13:30. FINDINGS: The deep veins are normally compressible, and free of intraluminal thrombus. Color and pulse Doppler demonstrate normal phasic intraluminal flow. There is normal augmentation response to distal compression maneuver. IMPRESSION: 1. No evidence of deep venous thrombosis in the right lower extremity. Dictated by: Jimbo Warner M.D. on 12/26/2016 at 17:38 PROCEDURE: US DUPLEX DOPPLER BILATERAL LEG ARTERIES ([id number]) INDICATIONS: claudication, PAD, stend hx IMPRESSION: 1. Occlusion of the proximal right and the entire left superficial femoral artery as described above. There is likely reconstitution of the distal right SFA via collaterals and reconstitution of the left popliteal artery via collaterals. 2. The left posterior tibial artery is likely occluded. 3. Probable high-grade stenosis within the left popliteal artery. These findings were discussed with Dr. Ball 3:04 PM on 12/24/16. Approved by: Yoana Gibbons M.D. on 12/24/2016 at 15:07 Other Diagnostics Bronchoscopy FINDINGS: Left upper lobe airway significantly narrowed and compressed extrinsically. Also edema in the lingular airways and airway compression. Chest x-ray pending post procedure to rule out pneumothorax. Maria L Hopper MD 01/03/17 0820 Brief History per PULMONOLOGY CONSULT NOTE Unfortunate 61 year old male with hx of extensive vascular disease s/p stenting with subsequent occlusion, HTN, DVT's, and 50 pack year smoking hx who presented to the ED due to acute onset of dyspnea on December 23, refused admission, and returned December 31 due to worsening dyspnea. The dyspnea aparrently began acutely on the and was worse with exertion. Denies CP but states that he had some chest pressure on the left . He also endorses fatigue, productive cough with yellow sputum and bilateral leg pain. He also states he has lost 20 lbs in the last 2-3 weeks. Pt denies fever, night sweats, congestion , or wheezing. On previous visit the patient had a CT-chest which revealed a spiculated mass in the left lobe > 5cm, as well as possible right lower lobe masses suspicious for metastatic disease. When he presented yesterday he underwent CTA which revealed a small PE as well as a very large left pleural effusion filling the left hemithorax. Thoracentesis was obtained yesterday and appeared bloody with RBC's of 3600; the entire container was sent for cytologoy. Following the procedure the patient states his breathing greatly improved although he has been at rest since this time. Additional history: -Patient is currently living at home by himself (lino lives above him). -He has a 40 year hx of smoking 1-2 packs daily, quitting 6 years ago. Former marijuana smoker and small stint of cocaine use in the distant past. -No prior hx of lung disease or asthma. PFT's performed 11/04/13 and did not reveal obstructive disease. No TLC/RV/DLCO performed. 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 -No exposure to TB Pulmonology was consulted for evaluation of the patients lung masses as well as the pleural effusion. Hospital Course Otis Gonzalez is a 61-year-old man with past medical history significant for hypertension, hyperlipidemia, peripheral vascular disease status post stenting, newly discovered pulmonary nodule and DVT who presented to the [facility] emergency department today from urgent care due to shortness of breath for the last week. #Multiple small pulmonary emboli/right IJ DVT , acute, present on admission, active -Secondary to malignancy -Initially started on heparin. Held today for bronchoscopy and therapeutic thoracentesis. No invasive procedure planned for now. Discussed with oncology , patient reluctant to use Lovenox injections. started elequis #New diagnosis of lung adenocarcinoma with inna and pleural metastases as well as malignant left pleural effusion, present on admission, active -Status post thoracentesis 01/01 and 01/03 . s/p bronchoscopy 01/03. Fluid consistent with exudative. prelim pleural fluid cytology probable adenocarcinoma, -Dr. Hopper consulted, - consulted oncology Dr Bob ,MRI brain,CT abdomen/pelvis done ,results as above -Supplemental oxygen -Procalcitonin slightly elevated but probably due to cancer. No evidence of infection. Breathing much improved after thoracentesis. Afebrile. Hold off antibiotics # Intermittent desaturations -Patient required therapeutic thoracentesis twice on current hospitalization. road test performed today. Saturation in low 90s in RA on ambulation. Patient has thoracentesis yesterday. May reacumulate soon and may need oxygen prescription. Advised patient to come to emergency room or get tested with Dr Bob for O2 # History of PVD -High-grade stenoses on left popliteal artery -Patient was on aspirin and Plavix. We will continue aspirin but discontinue Plavix given initiation of Eliquis lower risk of bleeding -Continue atorvastatin #Hypertension -Continue home medications #Hyperlipidemia -Continue home medications CODE STATUS: FULL CODE Disposition: Discharge home Exam Vital Signs (Last) Date Time Temp Pulse Resp B/P Pulse Ox O2 Delivery O2 Flow Rate FiO2 01/04/17 09:20 36.9 94 20 117/79 90 Room Air 01/04/17 04:35 3.00 Exam General: No acute distress, well-developed, well-nourished, appropriately interactive HEENT: Normocephalic, atraumatic. External ears without defect. Pupils equal, round, and reactive to light and accommodation. Anicteric sclerae, moist conjunctivae, and no lid lag. Oropharynx free of erythema and cobble stoning with moist mucosa. Neck: Supple with full range of motion. No jugular venous distension. No lymphadenopathy or thyromegaly. Cardiovascular: Regular rate and irregular rhythm with no murmurs, rubs, or gallops appreciated Pulmonary: Decreased air entry on lung basis. Abdomen: Bowel tones present. Soft, mildly tender to palpation worse on the left flank, nondistended. No hepatosplenomegaly or masses appreciated. Extremities: No clubbing, cyanosis, edema, or lymphadenopathy appreciated. Skin: Normal temperature, turgor, and texture; no rash, ulcers, or subcutaneous nodules appreciated. Neurological: Cranial nerves grossly intact. Normal muscle strength, tone, and bulk. Reflexes, coordination, and sensory function within normal limits. No known gait impairment. Psychiatric: Normal mood and affect. Alert and oriented to person, place, and time. Test 12/31/16 12:02 12/31/16 16:45 12/31/16 19:42 01/02/17 08:43 D-Dimer 16.29mg/L FEU (<0.50) Troponin T 0.010ug/L (0.0-0.011) Body Fluid Source Pleural fluid Body Fluid Color Red (Clear) Body Fluid Appearance Cloudy Body Fluid pH 7.2 (Not Estab.) Body Fluid WBC 1000/mm3 Body Fluid RBC 3400/mm3 Body Fluid Polynuclear WBCs 48% Body Fluid Lymphocytes 47% Body Fluid Monocytes 0% Body Fluid Eosinophils 5% Body Fluid Basophils 0% Body Fluid Lactate Dehydrogenase 1306U/L Body Fluid Comment Pleural Fluid Total Protein 4.2g/dL Pleural Fluid Glucose 41mg/dL Blood Smear Pathologist Review White Blood Count 13.1th/mm3 (3.8-10.1) Red Blood Count 3.58mil/mm3 (4.40-5.80) Hemoglobin 9.5g/dL (13.8-17.2) Hematocrit 29.4% (41.0-50.0) Mean Corpuscular Volume 82.1fL (81-100) Mean Corpuscular Hemoglobin 26.5pg (27.0-35.0) Mean Corpuscular Hemoglobin Concent 32.3% (32.0-37.0) Red Cell Distribution Width 15.4% (12.3-15.4) Platelet Count 398bil/L (150-400) Neutrophils (%) (Auto) 79.5% (40-74) Lymphocytes (%) (Auto) 10.1% (14-46) Monocytes (%) (Auto) 8.9% (4-12) Eosinophils (%) (Auto) 0.5% (0-5) Basophils (%) (Auto) 0.3% (0-3) Sodium Level 130mEq/L (134-144) Potassium Level 4.1mEq/L (3.5-5.2) Chloride Level 94mEq/L (97-108) Carbon Dioxide Level 21mmol/L (18-29) Blood Urea Nitrogen 10mg/dL (8-27) Creatinine 0.51mg/dL (0.76-1.27) Estimat Glomerular Filtration Rate 174mL/min (>59) Glucose Level 154mg/dL (60-99) Calcium Level 8.1mg/dL (8.5-10.1) Magnesium Level 1.8mg/dL (1.6-2.6) Total Bilirubin 0.8mg/dL (0.0-1.2) Aspartate Amino Transf (AST/SGOT) 38U/L (0-50) Alanine Aminotransferase (ALT/SGPT) 37U/L (0-44) Alkaline Phosphatase 98U/L (25-160) Total Protein 5.5g/dL (6.4-8.4) Albumin 2.4g/dL (3.4-5.0) Procalcitonin 0.15ng/mL (0.00-0.08) Test 01/03/17 06:34 Prothrombin Time 12.4sec (8.1-12.5) Prothromb Time International Ratio 1.16ratio Activated Partial Thromboplast Time 30.7sec (22.8-33.0) Lactate Dehydrogenase 390U/L (100-190) Discharge Medications Discharge Medications Apixaban (Eliquis) 5 Mg Tablet 5 MG PO BID Prescribed by: KEL LEVY MD Aspirin (Aspirin) 81 Mg Tablet 81 MG PO DAILY (Reported) Atorvastatin Calcium (Atorvastatin Calcium) 20 Mg Tablet 20 MG PO DAILY ( Reported) Lisinopril (Lisinopril) 5 Mg Tablet 5 MG PO DAILY (Reported) As needed Acetaminophen/Codeine 300-30mg (Acetaminophen/Codeine 300-30mg) 1 Each Tablet 2 TABLET PO Q6H PRN PRN Pain (Reported) oxyCODONE-Acetaminophen 5-325 mg (oxyCODONE-Acetaminophen 5-325 mg) 1 Each Tablet 1 TAB PO Q6H PRN PRN For Pain Prescribed by: KEL LEVY MD Followup Plan Disposition: Home Discharge Diet: Low fat, Low Sodium Discharge Activity: Limited until seen by PCP Patient Instructions You were hospitalized due to pulmonary embolism . Please continue Eliquis twice daily . You are also diagnosed with lung cancer .You underwent bronchoscopy and thoracentesis. Please follow up with Dr Bob in 1 week . You may require oxygen in the near future . You did not qualify for oxygen today .Please come back to ED if you feel short of breath . Follow-up Provider: Muna Bob MD Follow-up with PCP in: 1 week Time spent 40 minutes coordinating discharge copies to: Muna Bob MD; Maria L Hopper MD, Melaku MD Jan 04, 2017 10:55
--- NOTE | 2017-01-04 12:06 | NUR ---
Discharge Pt. discharged to home with belonging via taxi. Alert and oriented x 3, denied pain/discomfort, vitals stable, agreeable with discharge. Discharge packet with discharge, follow-up, medication instructions, and hard copy of prescriptions explained to and sent with pt. Pt. evaluated for home O2 prior to discharge but does not qualify. Instructed to return to ER for dyspnea and to follow-up as instructed. Pt. refused wheelchair and ambulated from unit with member of [facility] staff.
--- NOTE | 2017-01-06 12:43 | PATH ---
SURGICAL PATHOLOGY Attending Physician:Woo Shah MD CASE STATUS: Signed Out PATIENT NAME: MONTRELL ASCENCIO PID: [id number] : 1955 DATE COLLECTED:12/31/2016 00:00 SPECIMEN: Pleural Fluid CLINICAL HISTORY: Pleural Fluid ICD-10 code not given FINAL DIAGNOSIS: Pleural Fluid Cytology, ThinPrep and Cell Block Positive for malignant cells consistent with adenocarcinoma. ICD10: J91.0 NOTE: The combined cytomorphologic and immunohistochemical findings are most consistent with adenocarcinoma. According to Drs. Peralta and Ruchi, the patient has a lung mass. A bronchoscopic biopsy is planned for further diagnosis. The current study does not allow differentiation between a pulmonary adenocarcinoma and an adenocarcinoma of other sites. GROSS DESCRIPTION: Received fresh on 01/03/2017 is approximately 35 cc of cloudy brown fluid. Prepared are one cell block and one Cytospin slide. Vo MICRO DESCRIPTION: The ThinPrep and cell block contain aggregates of malignant cells which are of very large size with large pleomorphic nuclei and prominent nucleoli. The cells are present as individual cells and in small aggregates. Immunohistochemistry is performed for further evaluation with the following results: IMMUNOHISTOCHEMISTRY STAINRESULT [id number] positive in malignant cells. [id number] in malignant cells. WD-1Negative in malignant cells. CK5/6Negative in malignant cells. TTF-1Negative in malignant cells. ICD-9 CODES: CPT CODES: 1: 74241, 68310, 01405, 61795, 37669, 54351, 40102, 71032 Electronically Signed Out Patricio Linares MD, PhD [facility] [address], [place] [address] Technical component performed at [facility], [facility] [address], [place], [address]
--- NOTE | 2017-01-06 16:47 | PATH ---
SURGICAL PATHOLOGY Attending Physician:Maria L Hopper MD CASE STATUS: Signed Out PATIENT NAME: MONTRELL ASCENCIO PID: [id number] : 1955 DATE COLLECTED:01/03/2017 15:23 SPECIMEN: Lung Biopsy CLINICAL HISTORY: LEFT LUNG MASS, LUNG MASS, CYTOLOGY PENDING 1). LEFT UPPER LUNG LOBE MASS BIOPSY FINAL DIAGNOSIS: 1.LEFT UPPER LUNG LOBE, MASS, BIOPSY: POORLY-DIFFERENTIATED ADENOCARCINOMA, SEE COMMENT. [id number] NOTE: The immunophenotype is not entirely specific, and includes the differential of metastasis from an upper GI/pancreaticobiliary primary site versus a primary enteric-type lung adenocarcinoma. Clinical and radiologic correlation is the best way to determine the primary site. In the setting of large lung masses and absent abdominal findings on CT, molecular studies will be performed and the results reported as an addendum. As part of a routine quality control lead, Dr. Patricio Linares has also reviewed this case and agrees with the diagnosis of poorly-differentiated carcinoma. Dr. Hong discussed the preliminary findings with Dr. Hopper on 01/06/17. GROSS DESCRIPTION: Received in formalin, labeled with the patient' s name and "left upper lung lobe mass", are multiple fragments of miranda, soft tissue ranging in size from 0.1 x 0.1 x 0.1 cm to 0.2 x 0.2 x 0.1 cm. All fragments are totally submitted in one cassette. ([id number]) MICRO DESCRIPTION: Immunohistochemical stains were performed to further characterize the malignant cells. All control stains showed appropriate reactivity. Results: TTF-1:Negative Napsin A:Negative CK20:Negative CK7:Uniformly positive Villin:Positive CDX2:Negative P40:Negative Interpretation: This immunophenotype is consistent with adenocarcinoma; the differential diagnosis includes adenocarcinoma from an upper GI/pancreaticobiliary primary site versus an enteric-type lung adenocarcinoma. This test was developed and its performance characteristics determined by [employer]. It has not been cleared or approved by the U. S. Food and Drug Administration. The FDA has determined that such clearance or approval is not necessary. This test is used for clinical purposes. It should not be regarded as investigational or for research. ICD-9 CODES: CPT CODES: 1: 86625, 71317, 01470, 21882, 91408, 57944, 45667 PROCEDURE/ADDENDA: Addendum SPI Addendum Diagnosis TEST: ALK BY FISH RESULT: No Evidence of ALK Gene Rearrangement detected by FISH nuc justo (ALKx3~4)[) *This Test was performed by [employer] is a business unit of [employer] a wholly-owned subsidiary of [employer]. Any image(s) that accompany this report is/are a mechanical service representative image(s) only and should not be used to render a diagnosis. Addendum Comment Please see [facility] report [id number] for complete details. Electronically Signed Out Carmelina Hong MD Electronically Signed Out Carmelina Hong MD [facility] [address], [place] [address] Technical component performed at [facility], [address] [place] [address] [address], [place], [address]
--- NOTE | 2017-01-07 00:05 | PCM.PROC ---
Procedure Note Date of Service: Jan 03, 2017 Pre Procedure Diagnosis: Malignant pleural effusion Post Procedure Diagnosis: Malignant pleural effusion Procedure: Left thoracentesis, ultrasound guided Provider and Cribbing Setter: Dr. Ashwin Hopper (attending) Indication for Procedure: SOB Procedural Analgesia: 1% Lidocaine Procedure Details: A time-out was completed verifying correct patient, procedure, site, positioning , and special equipment if applicable. The patients left side was prepped and draped in a sterile manner after the appropriate infiltration level was confirmed by ultrasound. 1% lidocaine was used anesthetize the surrounding skin. A finder needle was then used to locate fluid and clear yellow fluid was obtained. A 10-blade scalpel used to make the incision. The thoracentesis catheter was then threaded without difficulty. The patient had 1500mL of bloody fluid removed.Dr. Hopper was present for the entire procedure. A post- procedure chest x-ray was ordered and improved. Attending Statement Procedure: Ultrasound-guided left thoracentesis Indication: Pleural effusion Date of service: 01/03/17 I was present for and supervised the entire procedure. Maria L Hopper M.D. Pulmonary and Critical Care medicine Pager [phone] Ashwin Peralta DO Jan 07, 2017 00:05 Maria L Hopper MD Jan 09, 2017 08:42
[2017-01-10] MEDS ORDERED: APIX5TAB PO (13:21)
[2017-01-10] MEDS ORDERED: ASPI-973 PO (13:21)
[2017-01-10] MEDS ORDERED: OXYC-407 PO (13:21)
[2017-01-10] MEDS ORDERED: CLOP75TA28 PO (13:21)
[2017-01-10] MEDS ORDERED: LISI-571 PO (13:21)
[2017-01-10] MEDS ORDERED: ATOR20TA PO (13:21)
== END 2017-01-04 12:00 | disposition home or self-care (01) | DRG 180 ==
LOC: SED 10:21 → MPC 15:50
PROVIDERS: ADMIT Internal Medicine; ATTEND Internal Medicine
PROC: 4A033R1 Measurement of Arterial Saturation, Peripheral, Percutaneous Approach (ICD-10-PCS; 2016-12-31)
PROC: 0W9B3ZX Drainage of Left Pleural Cavity, Percutaneous Approach, Diagnostic (ICD-10-PCS; 2017-01-03)
PROC: 0BB88ZX Excision of Left Upper Lobe Bronchus, Via Natural or Artificial Opening Endoscopic, Diagnostic (ICD-10-PCS; principal; 2017-01-03 07:30)
DX: C34.12 Malignant neoplasm of upper lobe, left bronchus or lung (principal); I26.99 Other pulmonary embolism without acute cor pulmonale; J96.01 Acute respiratory failure with hypoxia; C78.2 Secondary malignant neoplasm of pleura; C78.1 Secondary malignant neoplasm of mediastinum; I74.3 Embolism and thrombosis of arteries of the lower extremities; J91.0 Malignant pleural effusion; I10 Essential (primary) hypertension; I73.9 Peripheral vascular disease, unspecified; E78.5 Hyperlipidemia, unspecified; Z95.9 Presence of cardiac and vascular implant and graft, unspecified; Z79.82 Long term (current) use of aspirin; Z87.891 Personal history of nicotine dependence

== ENCOUNTER → 2017-01-13 | Day surgery (SDC) | payer MEDICARE ==
--- NOTE | 2017-01-10 15:54 | PCM.ANEPRE ---
Anesthesia Pre-Op Review Reason for Review: Respiratory concerns, bilat PE Anesthesia Recommendations: Proceed with Procedure Additional Comments Chart reviewed following discussion with Shari related to patient's persistent dyspnea of ~1mo duration. Objective findings of 5.3cm BARBARA mass (12/31 CT), large Pleff requiring 1700 tap from L hemithorax. 01/03 Parimi bronch Anesthesia record reviewed, well tolerated under midazolam/fentanyl sedation, No endobronchial obstructive mass visualized. Comorbid constellation includes PAD (bilateral femoral stents occluded with collateral supply), HTN/HLD, Minimal bilateral PE with CT angio currently. 10/29 TTE demonstrates intact function (50-55% EF with lateral, inferoapical hypokinesis), mild MR Records reviewed including multiple recent ED/Urgent care visits for O2 supportive care referencing mild hypoxia on assessment (89% RA improves to >94% on O2). Pt clearly high risk for low risk procedure, unable to further optomize , recommend proceed with port following DOS assessment. Lawrence Wood DO Jan 10, 2017 15:54
[~2017-01-13] VITALS: Ht 172.7 cm; Wt 69.9 kg
[~2017-01-13] MED LIST changes: +ACET1TAB42 PO; +APIX5TAB PO; +ATOR20TA PO; +Atropine 0.4 mg/mL Inj IVPUSH PRN; +Bupivacaine-MPF 0.5% 30 mL Inj INJ ONE; +CLOP75TA28 PO; +CeFAZolin 2 Gm/50 mL D5W IV Premix IV SCH; +EPHEDrine Sulfate 50 mg/mL Inj IVPUSH PRN; +Labetalol 5 mg/mL 4 mL Inj IV PRN; +Lactated Ringer's 1,000 ML IV ONE; +Lactated Ringer's 1,000 ML IV SCH; +Lactated Ringer's 500 ML IV PRN; +OXYC-407 PO; +OXYC1TAB24 PO; +Ondansetron 2 mg/mL 2 mL Inj IVPUSH PRN; +Phenylephrine 10,000 mCg/mL Inj IVPUSH PRN; +Propofol 10,000 mCg/mL 20 mL Inj ONE; +fentaNYL-PF 50 mCg/mL 2 mL Inj IVPUSH PRN
[2017-01-13 13:14] VITALS: BP 124/79; PULSE 102; RESP 16; O2SAT 98
--- NOTE | 2017-01-13 13:15 | PCM.HPANE ---
Patient Data Surgeon Admitting Provider: Attending Provider:Sourav Hopper MD Primary Care Physician:[place] Other Provider:Miladis Luque Anesthesia Reason for Visit Lung Cancer Ht/WT & BMI Height (Feet): 5 Height (Inches): 8 Weight (Kilograms): 69.9 Body Mass Index 23.00 Allergies Coded Allergies: codeine (Verified Allergy, Unknown, 01/13/17) Past Anesthesia History Anesthesia History: Denies:: Abnormal Airway, Anesthesia Reactions, Difficult Intubation, Fam Anesthesia Reaction, Fam Malignant Hypertherm, Malignant Hyperthermia Diabetes History Hx Diabetes?: No MRSA MRSA: No Medications Blood Thinner: Aspirin, Plavix Last Dose Blood Thinner: Jan 10, 2017 Home Meds Incl Beta Jackeline: No Reported Medications Oxycodone HCl/Acetaminophen 5-325 (Endocet 5-325)1 Each Tablet1-2 Tablet PO Q4H PRN For Pain 01/10/17 Clopidogrel 75 Mg [id number] Mg PO DAILY Ref 0 01/10/17 Lisinopril 5 Mg Tablet5 Mg PO DAILY #30 TABLET Ref 0 01/10/17 Atorvastatin (Lipitor)20 Mg [id number] Mg PO DAILY Ref 0 01/10/17 Aspirin 81 Mg [id number] Mg PO DAILY Ref 0 01/10/17 Apixaban (Eliquis)5 Mg Tablet5 Mg PO 01/10/17 Discontinued Reported Medications Acetaminophen/Codeine 300-30mg 1 Each Tablet2 Tablet PO Q6H PRN Pain Ref 0 12/31/16 Lisinopril 5 Mg Tablet5 Mg PO DAILY #30 TABLET Ref 0 01/22/16 Aspirin 81 Mg [id number] Mg PO DAILY Ref 0 01/22/16 Atorvastatin Calcium 20 Mg [id number] Mg PO DAILY 06/30/14 Discontinued Scripts oxyCODONE-Acetaminophen 5-325 mg 1 Each Tablet1 Tab PO Q6H PRN For Pain #30 TABLET Ref 0 Prov:Kel Schroeder MD 01/04/17 Apixaban (Eliquis)5 Mg Tablet5 Mg PO BID #120 TABLET Prov:Kel Schroeder MD 01/04/17 History History of ENT Problems?: No HEENT History: Positive for:: Cataracts (removed) Denies:: Abnormal Airway Difficult Intubation Glaucoma Hearing Problem Denture Type: None Teeth Condition: Within Normal Limits Hx of Heart Problems?: No Cardiovascular History: Positive for:: Cardiac Surgery (iliac artery) Hypertension Denies:: AICD Chest Pain Congestive Heart Failure Edema Heart Murmur Irregular Heartbeat Pacemaker Valvular Heart Disease Hx of Respiratory Problem?: Yes Respiratory History: Positive for:: Cough Dyspnea (can not climb a flight of stairs without stopping for 5 min. ) Pneumonia (Remote 15-20 years ago) Denies:: Asthma COPD Chest Surgery Emphysema Hemoptysis Tuberculosis Use of C-PAP Machine Hx Neurologic Problems?: No Neurological History: Denies:: CVA Dementia Hx of GI Problems?: No Hx of Problems?: No Skin History: Denies:: History Skin Disorders? Pressure Ulcers Hx Musculoskeletal Problems?: Yes Musculoskeletal History: Positive for:: Back Injury (MUSCLE STRAIN LOWER BACK) Musculoskeletal Trauma Denies:: Degenerative Joint Fibromyalgia Joint Replacement Myasthenia Gravis Osteoarthritis Rheumatoid Arthritis Systemic Lupus Hx of Psycho/Social Problems?: No Psycho Social History: Positive for:: Anxiety Hx Depression Hx Surgeries?: Yes (stents) Hx Any Other Health Problems?: Yes Other History: Denies:: Cancer Hospitalization Thyroid Disease History Blood Transfusions: Positive for:: Accept Blood Products? Denies:: Blood Transfuse Reaction Blood Transfusions Hx Diabetes: No Hx Alcohol Use: NoHx Substance Use: No Smoking Status: Former Smoker Have You Smoked inLast 12 mo: No Stop/Bang S-Snoring: Do You Snore Loudly: No T-Tired: feel tired, fatigued: No O-Obsered: Observed not breath: No P-Blood Pressure: treated: Yes B- Body Mass Index > 35 kg/m2: No A- Age over 50: Yes N- Neck Large Circumference: No G- Gender Male: Yes LYNN Total Score: 3 Risk Assessment Category Category 1A: Patient has history of documented sleep apnea, and HAS NOT received any narcotic, sedative or anesthesia administration during this stay. Category 1B: Patient has history of documented sleep apnea, and HAS received any narcotic , sedative or anesthesia administration during this stay Category 2: Patient has SUSPECTED Obstructive Sleep Apnea, and HAS received any narcotic , sedative or anesthesia administration during this stay. Category 3: Patient has SUSPECTED Obstructive Sleep Apnea and HAS NOT received narcotic, sedative or anesthesia administration during this stay. Category 4: Outpatient in Procedural Areas with known sleep apnea or who screen positive for High Risk via the STOP/BANG questionnaire. Exam Exam Vital Signs Vital Signs Date Time Temp Pulse Resp B/P Pulse Ox O2 Delivery O2 Flow Rate FiO2 7/31/17 12:49 Supplement Oxygen General Appearance: Alert, Oriented X3, Cooperative, Severe Distress HEENT/AIRWAY: MP 2, Neck Movement (from), Mouth Opening (wnl) Lungs: Diminished, Other (patient is breathless. Cannot finish sentences without pausing to breathe. There is no Wheezing) Heart: Exam Unremarkable Plan Impression Patient chart reviewed, patient interviewed and anesthestic plan with risks, benefits, and alternatives discussed, and informed consent obtained. ASA Physical Status: ASA3 Severe Disease Anesthetic Plan: MAC Bene/Risks/Altern/Consents: Yes HP Complete Prior to Induction: Yes Gino Rnee MD Jan 13, 2017 13:15
[2017-01-13 15:45] VITALS: BP 108/75; PULSE 109; RESP 16; O2SAT 95
[2017-01-13 16:05] VITALS: BP 118/78; PULSE 102; RESP 16; O2SAT 100
--- NOTE | 2017-01-13 17:13 | PCM.ANEP1 ---
Post Anesthesia PACU Phase 1 Assessment Vital Signs Vital Signs Date Time Temp Pulse Resp B/P Pulse Ox O2 Delivery O2 Flow Rate FiO2 01/13/17 16:05 102 16 118/78 100 Nasal Cannula 3 01/13/17 15:45 36.5 109 16 108/75 95 Nasal Cannula 3 01/13/17 13:14 36.7 102 16 124/79 98 Nasal Cannula 3 01/13/17 12:49 Supplement Oxygen Anesthetic Administered: MAC Level of Alertness: Awake, talking REYNOLDS's with Equal Strength: Yes Pain: Yes Nausea or Vomiting: No CV Function & Hydration Stable: Yes Airway Device: Oxygen Delivery: Nasal Cannula Lungs: Diminished, Other (patient is breathless. Cannot finish sentences without pausing to breathe. There is no Wheezing) PACU Phase 2 Assessment Complications: No Follow up Care: No Patient Instructions Provided: N/A Gino Rene MD Jan 13, 2017 17:13
--- NOTE | 2017-01-15 03:17 | OP ---
[address] [address] OPERATIVE REPORT PATIENT: MONTRELL ASCENCIO : 1955 MR#: [id number] ADMIT: 01/13/2017 JOB ID: [id number] DATE OF SURGERY: 01/13/2017 PREOPERATIVE DIAGNOSIS(ES): Metastatic lung cancer. POSTOPERATIVE DIAGNOSIS(ES): Metastatic lung cancer. PROCEDURE PERFORMED: 1. Left internal jugular tunneled central venous catheter with subcutaneous port. 2. Intraoperative ultrasound guidance and intraoperative fluoroscopy with interpretation. SURGEON: Sourav Hopper MD COMPLICATIONS: None. CONDITION OF THE PATIENT: Stable. INDICATIONS: The patient is a 61-year-old gentleman who presented to the emergency department on December 24, 2016, with progressive dyspnea. He was found to have multiple lung masses and a large left pleural effusion. He then was diagnosed with a pulmonary embolism, had a therapeutic thoracentesis and bronchoscopy. Pathology and imaging pointed to stage IV adenocarcinoma, but he was unable to get a peripheral IV. He was sent to ct for central venous access. He had right internal jugular thrombosis. After discussing the risks, benefits, and alternatives, he is here today for central venous access. PROCEDURE DETAILS: He was placed in supine position, underwent sedation. Neck and chest were prepped and draped in the usual sterile fashion. Surgical time-out was undertaken using safety checklist, and all were in agreement. I first attempted to access the left internal jugular vein with micropuncture kit, but I was unable to advance the wire. So, I took the regular port needle and accessed the left internal jugular vein under ultrasound guidance, and then advanced the J-wire and confirmed placement fluoroscopically. I then measured the required length of the catheter and made a pocket over the left pectoralis and tunneled the catheter up to the skin puncture site. I then secured it to the port and placed two PDS sutures to secure the port to the pectoralis fascia through the pocket. I then cut the catheter to the required length at the skin puncture site, dilated the wire tract with an introducer dilator and advanced the catheter through the introducer sheath and removed the tear-away sheath. I immediately aspirated and flushed the catheter to make sure it is working well, and locked it with 100 units/mL of heparin. Final fluoroscopy showed the catheter to be in good position with no problems. Skin was reapproximated with 4-0 Monocryl. The patient was recovered from anesthesia and was taken to the recovery room in stable condition.
== END | disposition home or self-care (01) ==
LOC: SAS 12:05
PROVIDERS: ATTEND Student in an Organized Health Care Education/Training Program
DX: C34.12 Malignant neoplasm of upper lobe, left bronchus or lung (principal); I10 Essential (primary) hypertension; E78.5 Hyperlipidemia, unspecified; I82.409 Acute embolism and thrombosis of unspecified deep veins of unspecified lower extremity; I73.89 Other specified peripheral vascular diseases; Z86.73 Personal history of transient ischemic attack (TIA), and cerebral infarction without residual deficits; Z95.820 Peripheral vascular angioplasty status with implants and grafts; Z79.82 Long term (current) use of aspirin; Z79.01 Long term (current) use of anticoagulants; Z87.891 Personal history of nicotine dependence
CPT/HCPCS: 36561; 77001; C1788; C1892; C1894; J0690; J7120

== ENCOUNTER 2017-01-20 11:30 | Inpatient (IN) | payer MEDICARE ==
[2017-01-20] VITALS (15 sets, daily range): BP systolic 89–152; BP diastolic 57–93; PULSE 62–116; RESP 18–45; O2SAT 92–99
[~2017-01-20] VITALS: Ht 172.7 cm; Wt 67.3 kg
[~2017-01-20 11:30] MED LIST changes: -ACET1TAB42 PO; -ATOR20TA65 PO; -Atropine 0.4 mg/mL Inj IVPUSH PRN; -Bupivacaine-MPF 0.5% 30 mL Inj INJ ONE; -CLOP75TA3 PO; -CeFAZolin 2 Gm/50 mL D5W IV Premix IV SCH; -EPHEDrine Sulfate 50 mg/mL Inj IVPUSH PRN; -Labetalol 5 mg/mL 4 mL Inj IV PRN; -Lactated Ringer's 1,000 ML IV ONE; -Lactated Ringer's 1,000 ML IV SCH; -Lactated Ringer's 500 ML IV PRN; -OXYC1TAB24 PO; -Ondansetron 2 mg/mL 2 mL Inj IVPUSH PRN; -Phenylephrine 10,000 mCg/mL Inj IVPUSH PRN; -Propofol 10,000 mCg/mL 20 mL Inj ONE; -fentaNYL-PF 50 mCg/mL 2 mL Inj IVPUSH PRN
--- NOTE | 2017-01-20 11:37 | ED.REPORT ---
HPI-General Illness Date of Service Jan 20, 2017 ED Provider: Carlos Richter Patient is a 61 year old male with a hx of HTN, hyperlipidemia, peripheral vascular disease, and lung cancer who presents to the ED from ultrasound. US states pt needs thoracentesis but needs chest tubes due to thick nature of fluid. His only complaint is SOB. He does report not eating, drinking, or sleeping normally. He is on 4 L of O2 at home. He denies fever, chills, chest pain, or any other symptoms. He had a thoracentesis 2 weeks ago. His last chest X-ray was 8-9 days ago. He stopped taking blood thinners 4-5 days ago. Nursing Notes Stated Complaint: SHORTNESS OF BREATH Chief Complaint: Respiratory Complaints Nursing Notes Reviewed: Yes Allergies: Coded Allergies: codeine (Verified Allergy, Unknown, 01/13/17) Scheduled Apixaban (Eliquis) 5 Mg Tablet 5 MG PO BID Aspirin (Aspirin) 81 Mg Tablet 81 MG PO DAILY Atorvastatin (Lipitor) 20 Mg Tablet 20 MG PO HS Clopidogrel (Clopidogrel) 75 Mg Tablet 75 MG PO DAILY Lisinopril (Lisinopril) 5 Mg Tablet 5 MG PO DAILY Scheduled PRN Lorazepam (Ativan) 0.5 Mg Tablet 0.5 MG PO BID PRN PRN For Anxiety Ondansetron (Ondansetron) 8 Mg Tablet 8 MG PO BID PRN PRN For Nausea Zolpidem (Zolpidem) 5 Mg Tablet 5 MG PO HS PRN PRN For Sleep General Time Seen by MD: 11:36 Chief Complaint Breathing problem Hx Obtained From: Patient Arrived By: Walk-in Recent Healthcare: Recent doctor visit Similar Sx Previous: Yes Past Medical History Past Medical History Notes: oncologist Paulino Past Medical History Hypertension Hyperlipidemis Peripheral vascular disease depression anxiety lung cancer Past Surgical History Multiple stents for peripheral vascular disease iliac artery surgery Reports: Cataract surgery Family History Noncontributory Smoking History Former Smoker Social History Other Social History: Local resident Ambulatory Status Independent Review of Systems +decreased appetite Full Review of Systems Constitutional: Denies: Chills, Fever Respiratory: Reports: Shortness of breath Cardiovascular: Denies: Chest pain Psychiatric: Reports: Insomnia Complete sys rev & neg: except as marked. Physical Exam Vital Signs Vital Signs Date Time Temp Pulse Resp B/P Pulse Ox O2 Delivery O2 Flow Rate FiO2 01/20/17 12:30 107 30 89/57 99 Nasal Cannula 3.5 01/20/17 12:00 107 31 96/65 98 Nasal Cannula 3.5 01/20/17 11:38 109 22 111/93 96 Room Air 01/20/17 11:30 110 29 111/93 96 Nasal Cannula 3.5 Initial VS: Reviewed, Vital signs abnormal Head / Eyes: Atraumatic, Normocephalic Neck: Full range of motion Abdomen / GI: Soft, Non-tender Skin: Warm, Dry Neurologic: Alert, Oriented, Nonfocal Psychiatric: Mood/affect normal, Behavior normal, Normal thought content General/Constitutional: Awake, Alert Respiratory / Chest: Atraumatic Diminished breath sounds on L tachypneic comfortable on 4 L of O2 Heart Rate / Rhythm: Positive: Tachycardia Rectum / Perineum: No gross blood Dark brown stool, Guaiac postive Interpretation & Diagnostics Lab Results Interpretation Result Diagram: 01/20/17 1155 01/20/17 1155 Test 01/20/17 11:55 01/20/17 12:03 01/20/17 12:48 White Blood Count 13.3th/mm3 (3.8-10.1) Red Blood Count 2.72mil/mm3 (4.40-5.80) Hemoglobin 7.3g/dL (13.8-17.2) Hematocrit 23.3% (41.0-50.0) Mean Corpuscular Volume 85.7fL (81-100) Mean Corpuscular Hemoglobin 26.8pg (27.0-35.0) Mean Corpuscular Hemoglobin Concent 31.3% (32.0-37.0) Red Cell Distribution Width 17.7% (12.3-15.4) Platelet Count 257bil/L (150-400) Neutrophils (%) (Auto) 89.7% (40-74) Lymphocytes (%) (Auto) 6.1% (14-46) Monocytes (%) (Auto) 3.5% (4-12) Eosinophils (%) (Auto) 0.1% (0-5) Basophils (%) (Auto) 0.1% (0-3) Sodium Level 132mEq/L (134-144) Potassium Level 4.1mEq/L (3.5-5.2) Chloride Level 90mEq/L (97-108) Carbon Dioxide Level 24mmol/L (18-29) Blood Urea Nitrogen 15mg/dL (8-27) Creatinine 0.52mg/dL (0.76-1.27) Estimat Glomerular Filtration Rate 171mL/min (>59) Glucose Level 113mg/dL (60-99) Calcium Level 8.9mg/dL (8.5-10.1) Magnesium Level 1.8mg/dL (1.6-2.6) Total Bilirubin 1.0mg/dL (0.0-1.2) Aspartate Amino Transf (AST/SGOT) 28U/L (0-50) Alanine Aminotransferase (ALT/SGPT) 23U/L (0-44) Alkaline Phosphatase 90U/L (25-160) Total Protein 6.1g/dL (6.4-8.4) Albumin 2.7g/dL (3.4-5.0) Hold Virgen Top Tube Received (Received) Prothrombin Time 13.3sec (8.1-12.5) Prothromb Time International Ratio 1.24ratio X-Ray Chest Interpretation Chest Xray Interpretation: IMPRESSION: Moderate sized left-sided pleural effusion. Increased left lung opacification which could represent compressive atelectasis versus pneumonia. Dictated by: Sarai Silva MD, PhD on 01/20/2017 at 12:11 Approved by: Sarai Silva MD, PhD on 01/20/2017 at 12:13 View: Portable, 1 view Interpretation / Wet Read by: Interpret - Radiologist Re-Eval/Medical Decision Med Decision/Clinical Course Findings of worsening hypoxia due to symptomatic malignant pleural effusion, as well as a subacute gastrointestinal bleed likely from Eliquis. Stool is brown, patient's anemia is known but has now reached a critical level. We will plan to admit the patient, have surgery consult regarding the pleural effusion, transfuse the patient, and discuss further provocative testing for GI bleeding. Time of Eval: 12:41 Re-Evaluation/Progress Note: Rechecked pt. Discussed plan for admission. Patient understands and agrees with plan. All questions addressed at this time. Time of Eval: 12:52 Re-Evaluation/Progress Note: rechecked pt. discussed plan for transfusion and admission. Patient understands and agrees with plan. All questions addressed at this time. Consultation #1: Referral / Consult Name: Iron Carter MD Consulted With: Surgeon Call Returned at: 12:34 Note: Discussed pt's case. Agrees to consult. Pt most likely needs thoracoscopy. Consultation #2: Referral / Consult Name: Muna Bob MD Call Returned at: 12:59 Note: Discussed pt's case with oncology. Agrees to consult Consultation #3: Referral / Consult Name: Prasad Carter MD Consulted With: Hospitalist Call Returned at: 13:07 Induction Coordination Power Engineer: Will see patient, Agrees with eval, Agrees with plan, Accepts admit Note: Discussed pt's case, accepts admit. Counseled Regarding: Diagnosis, Lab results, Need for admission Discharge & Departure Primary Impression: Pleural effusion Disposition: ADMITTED TO HOSPITAL Discharge Condition All VS Reviewed: Yes Condition: Stable Referrals: NOPCP (PCP) Scribe Attestation Portions of this note were transcribed by Vianca Pa. I, Dr. Richter personally performed the history, physical exam and medical decision-making; I reviewed and confirmed the accuracy of the information in the transcribed note. Signed by: Lee Ann Jacobs, 01/20/17 Carlos Richter DO Jan 20, 2017 11:37 VIANCA PA Jan 20, 2017 11:52
[2017-01-20] MEDS ORDERED: 0.9% Sodium Chloride 1,000 ML IV ONE (11:45)
[2017-01-20 12:13] LABS: BASOPHILS % (AUTO) 0.1 % (0-3); EOSINOPHILS % (AUTO) 0.1 % (0-5); MONOCYTES % (AUTO) 3.5 % (4-12); Mean Corpuscular Hemoglobin 26.8 pg (27.0-35.0); Mean Corpuscular Volume 85.7 fL (81-100); NEUTROPHILS % (AUTO) 89.7 % (40-74); Platelet Count 257 bil/L (150-400)
--- NOTE | 2017-01-20 12:14 | DRSVH ---
PROCEDURE: X-RAY CHEST ONE VIEW, PORTABLE ([id number]) INDICATIONS: hypoxia. TECHNIQUE: One view of the chest was acquired. COMPARISON: [facility], CR, XR CHEST 1VW (PORTABLE), 01/03/2017, 11:54. FINDINGS: Surgical changes and devices: Left chest wall Port-A-Cath has been placed in the interval since prior exam 01/03/17. Lungs and pleura: Moderate-sized left-sided pleural effusion noted. Patchy opacities noted in the lef t lung which could represent compressive atelectasis or pneumonia. Trace right sided pleural effusion noted. Mass in the left midlung and nodule in the right lung apex are not significantly changed comp ared to prior examination. Mediastinum: Mediastinal contours appear normal. Heart size is normal. Bones and chest wall: No suspicious bony lesions. Overlying soft tissues appear unremarkable. IMPRESSION: Moderate sized left-sided pleural effusion. Increased left lung opacification which could represent compressive atelectasis versus pneumonia. Dictated by: Sarai Silva MD, PhD on 01/20/2017 at 12:11 Approved by: Sarai Silva MD, PhD on 01/20/2017 at 12:13
[2017-01-20 12:31] LABS: Magnesium 1.8 mg/dL (1.6-2.6)
[2017-01-20 13:18] LABS: INR 1.24 ratio
[2017-01-20] MEDS ORDERED: Polyethylene Glycol (PEG) 17 Gm Powder PO PRN (13:50)
[2017-01-20] MEDS ORDERED: Ondansetron 2 mg/mL 2 mL Inj IVPUSH PRN (13:50)
[2017-01-20] MEDS ORDERED: Alum-Mag Hydrox-Simeth 30 mL Suspension PO PRN (13:50)
[2017-01-20] MEDS ORDERED: ZOLP5TAB6 PO (14:13)
[2017-01-20] MEDS ORDERED: ONDA-54 PO (14:13)
[2017-01-20] MEDS ORDERED: LORA-302 PO (14:13)
[2017-01-20] MEDS ORDERED: Pantoprazole 4 mg/mL 10 mL Inj IVPUSH ONE (14:20)
[2017-01-20] MEDS ORDERED: Heparin 5,000 Unit/mL Inj IVPUSH PRN (15:05)
[2017-01-20] MEDS ORDERED: Heparin 25K Unit/500mL 0.45 NS 25,000 UNIT in IV Premix 1 EACH IV SCH (15:05)
--- NOTE | 2017-01-20 16:00 | PCM.HPMED ---
Subjective Date of Service Jan 20, 2017 Primary Provider: Admitting Physician: Primary Care Physician: [place] Attending Physician: Chief Complaint: SHORTNESS OF BREATH History of Present Illness: Mr. Otis Gonzlaez is a 61 year old gentleman with a past medical history of Hypertension, hyperlipidemia peripheral vascular disease, DVT and recent PE with new diagnosis of Stage IV adenocarcinoma of the lung who presents to the ED from ultrasound. US states pt needs thoracentesis but needs chest tubes due to thick nature of fluid. His only complaint is increasing shortness of breath, cough with thick sputum, dyspnea on exertion and anxiety. He reports sleepless nights and decreased PO intake due to dry heaves 2nd to thick sputum. He has not taken medications for 5 days. He is on 3 L of O2 at home. He denies fever, chills, chest pain, or any other symptoms. He had a thoracentesis 2 weeks ago. His last chest X-ray was 8-9 days ago. Of note: Patient has no next of kin and very limited social support. In the ED patients vitals were as follows: T-?, HR - 110, RR - 29, BP 111/93, 96 % on 3.5 L NC. Patient received PPI push 80mg, 1 L NS. Notable Labs: WBC 13.3 N89%, Hgb 7.3, Albumin 2.7, CXR - From Radiologist - Moderate sized left-sided pleural effusion. Increased left lung opacification which could represent compressive atelectasis versus pneumonia. EKG ordered. Review of Systems: A comprehensive review of systems was conducted with the patient and found to be negative except as above in the History of Present Illness. Allergies Coded Allergies: codeine (Verified Allergy, Unknown, 01/13/17) Home Medications Scheduled Aspirin (Aspirin) 81 Mg Tablet 81 MG PO DAILY Atorvastatin (Lipitor) 20 Mg Tablet 20 MG PO DAILY Clopidogrel (Clopidogrel) 75 Mg Tablet 75 MG PO DAILY Lisinopril (Lisinopril) 5 Mg Tablet 5 MG PO DAILY Scheduled PRN Oxycodone HCl/Acetaminophen 5-325 (Endocet 5-325) 1 Each Tablet 1-2 TABLET PO Q4H PRN PRN For Pain Miscellaneous Medications Apixaban (Eliquis) 5 Mg Tablet 5 MG PO PMH Hypertension Hyperlipidemis Peripheral vascular disease depression anxiety lung cancer Surgical History Multiple stents for peripheral vascular disease iliac artery surgery Reports: Cataract surgery Family History Unknown, left home at 12 years old with no known next of kin. Social History Hx Alcohol Use: No Hx Substance Use: No Hx Tobacco Use: Yes Smoking Status: Former Smoker Exam Vital Signs Vital Sign - Last Date Time Temp Pulse Resp B/P Pulse Ox O2 Delivery O2 Flow Rate FiO2 01/20/17 12:30 107 30 89/57 99 Nasal Cannula 3.5 Exam General: Frail and pale elderly gentleman lying in bed in mild acute respiratory distress, well-developed, well-nourished, appropriately interactive HEENT: Normocephalic, atraumatic. External ears without defect. Pupils equal, round, and reactive to light and accommodation, arcus senilis present, sclerae icterus, moist conjunctivae, and no lid lag. Oropharynx free of erythema and cobble stoning with moist mucosa. Neck: Supple with full range of motion. No jugular venous distension. No bruits. No lymphadenopathy or thyromegaly. Cardiovascular: Tachycardic rate and regular rhythm with no murmurs, rubs, or gallops appreciated Pulmonary: Very coarse rhonchi bilaterally, marked decreased aeration on the left upper and lower, scattered end expiratory wheezes. Increased respiratory effort with no use of accessory muscles. Abdomen: Bowel tones present. Soft, nontender, nondistended. No hepatosplenomegaly or masses appreciated. Extremities: No clubbing, cyanosis, edema, or lymphadenopathy appreciated. Skin: Normal temperature, turgor, and texture; no rash, ulcers, or subcutaneous nodules appreciated. Neurological: Cranial nerves grossly intact. Normal muscle strength, tone, and bulk. Reflexes, coordination, and sensory function within normal limits. No known gait impairment. Psychiatric: Depressed and anxious mood and affect. Alert and oriented to person , place, and time. Lab and Diagnostics Result Diagram: 01/20/17 1155 01/20/17 1155 X-Rays, CTs and MRIs X-RAY CHEST ONE VIEW, PORTABLE IMPRESSION: Moderate sized left-sided pleural effusion. Increased left lung opacification which could represent compressive atelectasis versus pneumonia. Dictated by: Sarai Silva MD, PhD on 01/20/2017 at 12:11 Assessment & Plan Patient is a 61 year old male with a hx of HTN, hyperlipidemia, peripheral vascular disease, and lung cancer who presents to the ED from ultrasound for a palliative thoracentesis but needs chest tubes due to thick nature of fluid and also is anemic with a recent history of melena. Currently receiving 1 U PRBCs and being evaluated for chest tube. Acute on Chronic Respiratory Failure, present on admission. Active. - Loculated effusion on the Left side with thick sample from thoracentesis, likely parapneumonic effusion, vs empyema, vs pneumonia, - On home O2 at 3L since 01/10/17. - On 4L currently. - Sputum / Blood Cx ordered. - IS and acapella ordered. - Procalcitonin ordered. - Surgery consulted. Acute Blood loss Anemia, present on admission. Active. - Patient reports as scheduled transfusion this Friday01/22/17. - Stool guaiac positive. - Hgb 7.3 trending down. - 1U PRBC's 01/20/17. Q2H H&H. - PPI 80 IV push, will plan on PPI ggt (may consider IV 40 BID.) - GI consulted. Stage IV Pulmonary Adenocarcinoma, present on admission. Active. - 12/24/2016 with progressive dyspnea. Had a therapeutic thoracentesis and had a bronchoscopy on 01/03/2017He was found to have multiple lung masses and large left pleural effusion. - Dr. Muna Bob on 01/07/2017 planned to start Palliative chemotherapy 01/22- carboplatin and paclitaxel, but the infusion center was unable to get a peripheral IV, so Port placed in Left IJ. - Outpatient Med Onc notes in paper chart. - Palliative thoracentesis scheduled weekly. May require VATS or Chest tube. Other chronic issues. Peripheral Arterial Occlusive Disease - Bilateral Femoral stents placed. Hypertension. - Has not taken home meds for 5 days. - Will continue home lisinopril when appropriate. Hyperlipidema. - Has not taken home meds for 5 days. - Will continue home lisinopril when appropriate. History of DVT/PE. - 12/31/2016, was diagnosed with pulmonary embolism with a CT pulmonary angiogram - Thrombus in right IJ. - Holding home Eliquis, ASA, Clopidogrel. - On PE heparin ggt. Protein Calorie Malnutrition, present on admission. Active. - States 40 lb weight loss recently. - Albumin 2.7. - Dietary consult. Acetaminophen for mild pain when necessary. Bowel regimen Senna and MiraLAX scheduled and PRN. Zofran when necessary for nausea and vomiting. Heparin ggt for now. SCDs not in place due to PAD and femoral stents. High-risk medications: IV Heparin ggt Patient Status: Patient is admitted under inpatient status with expected length of stay greater than 2 midnights due to severity of presenting symptoms, risk of adverse event, and complexity of treatment plan. Pain Evaluation: Adequate Pain Control Resuscitation Status: CPR: Attempt Resuscitation Time spent 60 minutes Attending Statement The patient was seen and examined together with Dr. Warner on January 20 and I agree with the history, exam findings, and plan as outlined in the note above. I did participate in all aspects of the services provided today, including documentation and the plan of care. The patient be admitted and placed on heparin for for pulmonary embolism. He also can watch for evidence of a hematocrit drop or GI bleeding with melena. The patient was seen by surgery discussed the possibility of VATS for his malignant recurrent pleural effusion. KAHLIL WARNER DO Jan 20, 2017 13:58 Prasad Carter MD Jan 21, 2017 14:08
--- NOTE | 2017-01-20 19:25 | CONS ---
[address] [address] CONSULTATION REPORT PATIENT: MONTRELL ASCENCIO : 1955 MR#: [id number] ADMIT: 01/20/2017 JOB ID: [id number] DATE OF SERVICE: 01/20/2017 HISTORY OF PRESENT ILLNESS: The patient is 61 years old. 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 He had a previous thoracentesis that was positive for adenocarcinoma. He has been started on chemotherapy by Dr. Muna Bob. The palliative chemotherapy is carboplatinum and paclitaxel. He has a complex past medical history with a pulmonary embolus, he also has a thrombosed right internal jugular vein. He has a history of peripheral arterial disease with bilateral femoral arterial stents, hypertension, hyperlipidemia, history of smoking, history of silent lacunar infarcts. He has been on Eliquis as well as aspirin and clopidogrel. The Eliquis and Plavix were stopped so that he could have a palliative left thoracentesis today because he is on 4 L of oxygen at home. When he went to ultrasound today, he was found to have multiloculated left pleural effusion with extensive honeycombing and a thoracentesis was not performed. Because of increasing oxygen requirements, he was admitted. He has not had any left chest operations other than the thoracentesis. PAST MEDICAL HISTORY: ILLNESSES: 1. Tobacco abuse. 2. Peripheral arterial disease. 3. Hypertension. 4. Hyperlipidemia. 5. Right internal jugular thrombosis. 6. Pulmonary embolus. 7. Anticoagulation status. MEDICATIONS: 1. Eliquis 5 mg b.i.d. 2. Clopidogrel 75 mg daily. 3. Atorvastatin 20 mg q.h.s. 4. Lisinopril 5 mg daily. 5. Aspirin 81 mg daily. 6. Lorazepam 0.5 mg b.i.d. p.r.n. 7. Zolpidem 5 mg p.o. q.h.s. p.r.n. sleep. 8. Ondansetron 8 mg b.i.d. p.r.n. nausea. 9. Oxycodone/acetaminophen 5/325. ALLERGIES: CODEINE. SOCIAL HISTORY: Lives in [place]. He is single. REVIEW OF SYSTEMS: Otherwise negative. PHYSICAL EXAMINATION: Pale, chronically ill, dyspneic. No acute distress. BMI 24. Brachial blood pressure 89/57, pulse 110, respiratory rate 30, O2 sat on 3.5 L is 99%. HEENT: Pale facies. No scleral icterus. Neck: Right internal jugular tunneled catheter. Lungs: Decreased breath sounds on the left. Cardiac exam: Regular rhythm. Abdomen: Soft, nontender. Extremities: No edema. Skin: No anterior chest rashes. Neurologic exam: Appropriate affect. No obvious cranial nerve deficits. Moves all extremities. Gait not tested. LABORATORY RESULTS: White count 13.3, hematocrit is 23.3, platelet count 257,000. INR 1.24. Electrolytes are normal. LFTs are normal. Creatinine is 0.52. IMAGING STUDIES: Have been reviewed including the ultrasound today and then his most recent CT scan of his abdomen. I have also reviewed his chest x-ray from today. IMPRESSION: Advanced stage IV adenocarcinoma of the left lung. He has a multiloculated malignant left pleural effusion. A chest tube would be of no benefit. He would need to undergo VATS to break up loculations and then place a chest tube. That may not allow for full expansion of his lung. Before that is done, and I will talk with Dr. Tabares. I certainly think a discussion should be held with the patient regarding his goals and what we can reasonably do for him and at what risk. I explained this to the patient.
--- NOTE | 2017-01-20 19:39 | NUR ---
Admission/Blood transfusion Male received to room 2026 at about 1545. pt alert and oriented. noted to be pale. pt able to transfer self with sba from gurney to bed. pt denied pain. notable sob. pt with nc at 3L sating mid 90s. portacath saline locked for transport. NS at tko started. telemetry applied. POC reviewed with patient. pt ordered for 2 units PRBCs. pt consented. first unit started at about 1745. pt tolerating well without reaction. call light in reach. care continues.
[2017-01-20] MEDS: Albuterol-Ipratropium 3 mL Inhalation Solution NEB PRN (23:41)
[2017-01-21] VITALS (16 sets, daily range): BP systolic 114–144; BP diastolic 61–94; PULSE 78–121; RESP 16–38; O2SAT 90–98
--- NOTE | 2017-01-21 03:24 | NUR ---
Text paged to request another dose of tesslon pearls which were very effective for the pt and allowed him to get about 3 hours of sleep. Waiting for response.
[2017-01-21 04:50] LABS: BASOPHILS % (AUTO) 0.1 % (0-3); EOSINOPHILS % (AUTO) 0.8 % (0-5); MONOCYTES % (AUTO) 6.5 % (4-12); Mean Corpuscular Hemoglobin 28.2 pg (27.0-35.0); Mean Corpuscular Volume 85.4 fL (81-100); NEUTROPHILS % (AUTO) 84.6 % (40-74); Platelet Count 204 bil/L (150-400)
--- NOTE | 2017-01-21 06:11 | NUR ---
NOC PT had a rough night due to respiratory distress. PT currently is only on 3lNC, but when he starts coughing it is incessant. PT actually gagging and almost vomitting from coughing so hard. PT HR was going up to 170 when he was coughing. Lungs sound are extremely coarse t/o and there is minimal air movment heard on his L side. MD called and requested prn nebs and tesslon pearls. The hope of the neb was to open up the R side of his lung a little more to compensate for his L side. The tesslon pearls were extremely effective in decreasing his cough and pt was able to get a few hours of sleep. Pt has received 2UPRBC's, but last H/H shows a decline again. No stool to guaic yet. B/P stable. Hep gtt started and is currently infusing at 19units/kg/hour. Next PTT is at 0930. H/H will be rechecked at 0800. Port accessed and new IV placed on R f/a as well. PT NPO since TX for VATS procedure today. PT is SBA to bathroom. At rest HR is Sinus tach in about the 115-120 range. Will CTM. PT denies any pain. Also spoke with pt about his support system and sadly pt reports that he does not have anyone in his life. Asked if he would like a casket assembler metal visit and pt declined. PT is a bit anxious. He states "I got myself into this mess and I will just have to deal with it." He voiced in interest in speaking with palliative care because he said "this is no way to live that is for sure." WIll pass this info to the day RN.
--- NOTE | 2017-01-21 07:52 | PCM.PNMED ---
Subjective Date of Service Jan 21, 2017 Subjective He remained short of breath. He also has a dry cough. No chest pain. He denies weakness but did have one black-colored stool. His hematocrit has been going down again after his transfusion. He was placed on a heparin drip for his DVT pulmonary embolism history. He notes oxygen is decreasing his shortness of breath. No abdominal pain No other overnight events noted. Exam Vital Signs Vital Sign - Last Date Time Temp Pulse Resp B/P Pulse Ox O2 Delivery O2 Flow Rate FiO2 01/21/17 04:28 112 01/21/17 04:05 37.0 18 128/76 97 Nasal Cannula 4.00 Intake and Output 01/20/17 01/20/17 01/21/17 Cumulative From/Thru 15:00 23:00 07:00 01/20/17 11:38 - 01/21/17 06:02 Intake Total 860 ml 860 ml Output Total 300 ml 300 ml Balance 560 ml 560 ml Intake Oral 150 ml 150 ml IV Total 100 ml 100 ml Packed Cells 610 ml 610 ml Output Urine Total 300 ml 300 ml Exam Alert and oriented -3, no distress. Fluent speech Anicteric sclera. Pale skin Lungs are with diminished breath sounds globally but especially on the left base. He is tachypneic. Heart is regular without murmur gallop or rub Abdomen soft nontender, flat Extremities are free of edema. Skin is free of rash or lesions. IVs and Medications Medications Reviewed: Medications were reviewed in detail Lab and Diagnostics Result Diagram: 01/21/17 0300 01/20/17 1155 X-Rays, CTs and MRIs X-RAY CHEST ONE VIEW, PORTABLE IMPRESSION: Moderate sized left-sided pleural effusion. Increased left lung opacification which could represent compressive atelectasis versus pneumonia. Dictated by: Sarai Silva MD, PhD on 01/20/2017 at 12:11 Assessment & Plan Patient is a 61 year old male with a hx of HTN, hyperlipidemia, peripheral vascular disease, and lung cancer who presents to the ED from ultrasound for a palliative thoracentesis but needs chest tubes due to thick nature of fluid and also is anemic with a recent history of melena. Currently receiving 1 U PRBCs and being evaluated for chest tube. #. Acute on Chronic Respiratory Failure, present on admission. Active. - Loculated effusion on the Left side with thick sample from thoracentesis, likely parapneumonic effusion, vs empyema, vs pneumonia, - On home O2 at 3L since 01/10/17. - On 4L currently. - Sputum / Blood Cx ordered. - IS and acapella ordered. - Procalcitonin ordered. - Surgery consulted. VATS is scheduled for . Until then supplemental oxygen. #. Probable Acute Blood loss Anemia, present on admission. Active. - Patient reports as scheduled transfusion this Friday01/22/17. - Stool guaiac positive. - Hgb 7.3 trending down. - 1U PRBC's 01/20/17. Q2H H&H. - PPI 80 IV push, will plan on PPI ggt (may consider IV 40 BID.) - GI consulted. Anticipate nothing mouth status with an upper endoscopy today. Blood transfusion as required. #. Probable upper GI bleed, POA. The patient has reported melena. Plan is to continue Protonix and pursue endoscopy. #. Stage IV Pulmonary Adenocarcinoma, present on admission. Active. - 12/24/2016 with progressive dyspnea. Had a therapeutic thoracentesis and had a bronchoscopy on 01/03/2017He was found to have multiple lung masses and large left pleural effusion. - Dr. Muna Bob on 01/07/2017 planned to start Palliative chemotherapy 01/22- carboplatin and paclitaxel, but the infusion center was unable to get a peripheral IV, so Port placed in Left IJ. - Outpatient Med Onc notes in paper chart. - Palliative thoracentesis scheduled weekly. May require VATS or Chest tube. Other chronic issues. #. Peripheral Arterial Occlusive Disease, POA and stable. - Bilateral Femoral stents placed. #. Hypertension. POA and stable. - Has not taken home meds for 5 days. - Will continue home lisinopril when appropriate. #. Hyperlipidema. POA and stable - Has not taken home meds for 5 days. - Will continue home lisinopril when appropriate. #. History of DVT/PE. POA and active. - 12/31/2016, was diagnosed with pulmonary embolism with a CT pulmonary angiogram - Thrombus in right IJ. - Holding home Eliquis, ASA, Clopidogrel. - On PE heparin ggt. We will stop heparin drip until completing endoscopy given ongoing apparent loss and melena. #. Protein Calorie Malnutrition, present on admission. Active. - States 40 lb weight loss recently. - Albumin 2.7. - Dietary consult. Acetaminophen for mild pain when necessary. Bowel regimen Senna and MiraLAX scheduled and PRN. Zofran when necessary for nausea and vomiting. Heparin ggt for now. SCDs not in place due to PAD and femoral stents. High-risk medications: IV Heparin drip Patient Status: Patient is admitted under inpatient status with expected length of stay greater than 2 midnights due to severity of presenting symptoms, risk of adverse event, and complexity of treatment plan. VTE Mechanical Devices: Intermittant Pneumatic CD Resuscitation Status: CPR: Attempt Resuscitation Prasad Carter MD Jan 21, 2017 07:51
[2017-01-21] MEDS ORDERED: HepLOK Flush 100 unit/mL 5 mL Inj IVFLUSH PRN (08:05)
[2017-01-21] MEDS ORDERED: Sodium Chloride LOK Flush 10 mL Syringe IVFLUSH PRN ×2 (08:05)
[2017-01-21] MEDS: Albuterol-Ipratropium 3 mL Inhalation Solution NEB PRN ×2 (08:21→16:46)
[2017-01-21] MEDS ORDERED: Propofol 10,000 mCg/mL 20 mL Inj ONE (10:00)
[2017-01-21] MEDS ORDERED: Ketamine 10 mg/mL 20 mL Inj ONE (10:00)
--- NOTE | 2017-01-21 10:30 | CONS ---
[address] [address] CONSULTATION REPORT PATIENT: MONTRELL ASCENCIO : 1955 MR#: [id number] ADMIT: 01/20/2017 JOB ID: [id number] DATE OF SERVICE: 01/21/2017 REASON FOR CONSULTATION: Melena, anemia. HISTORY OF PRESENT ILLNESS: This is a 61-year-old, male, with a history of stage IV adenocarcinoma of the lung, now with a left pleural effusion, hypertension, hyperlipidemia, peripheral vascular disease, DVT and recent pulmonary embolism, on Plavix and aspirin as an outpatient, who presents for consultation for melena and anemia. The patient states that for the past one week since past Friday, he has been having black melanotic stool two times per day. The patient states that he was on Plavix and aspirin, but then switched over to Eliquis and aspirin, per the patient. The patient states he has never had an EGD or colonoscopy in the past and denies family history of colon cancer, inflammatory bowel disease, or celiac disease. The patient denies bright red blood per rectum, nausea, vomiting, hematemesis. The patient was found to have a hemoglobin of 7.3 on January 20, 2017, and now his hemoglobin is 8.7 on January 21, 2017. His PT is 13.3, INR 1.2. His BUN is 15, with a creatinine 0.5. The patient had a chest x-ray done on January 20, 2017, showed moderate size left pleural effusion with increased left lung opacification. The patient denies family history of colon cancer, inflammatory bowel disease, or celiac disease. The patient presents for further evaluation. PAST MEDICAL HISTORY: As stated above. Includes anxiety, depression. PAST SURGERIES: Multiple stents for peripheral vascular disease, cataract surgery, iliac artery surgery. ALLERGIES: CODEINE. MEDICATIONS AT HOME: Aspirin, atorvastatin, Plavix, lisinopril, and the patient states he was Eliquis as an outpatient. SOCIAL HISTORY: A former smoker. No IV drug use. No alcohol. FAMILY HISTORY: Negative for colon cancer per the patient. REVIEW OF SYSTEMS: The patient denies headache, blurred vision. Positive for shortness of breath. No chest pain, abdominal pain, skin rash, or joint pain. PHYSICAL EXAMINATION: Vital signs upon presentation: Temperature is 37.0, pulse 110, blood pressure of 114/86, respiratory rate 30, satting 94% on 4 L nasal cannula. General: No acute distress. Head: No scars. Eyes: Anicteric. Throat: Supple. Lungs: Decreased breath sounds, especially on the left side. Cardiovascular: Regular rate and rhythm. Abdomen: Soft, nondistended, nontender. Normal bowel sounds. Extremities: No cyanosis, clubbing or edema. LABORATORIES: Labs show a sodium 132, potassium 4.1, chloride 98, bicarb 24, BUN 15, creatinine 0.5, glucose 113, calcium 8.9, magnesium 1.8. Total bili 1.0. AST 28, ALT 23, alk phos 90, total protein 6.1, albumin 2.7. White count 10.1, hemoglobin 8.7, hematocrit 26, MCV 85, platelet count 204. PT 13.3, INR 1.2. ASSESSMENT AND PLAN: This is a pleasant, 61-year-old, male, with a history of hypertension, hyperlipidemia, peripheral vascular disease, deep venous thrombosis (DVT) and pulmonary emboli (PE), on anticoagulation such as aspirin, Plavix and Eliquis as an outpatient, history of stage IV adenocarcinoma with a left pleural effusion, presents here for melena for the past one week. Differential diagnosis includes peptic ulcer disease versus esophagitis versus gastritis versus duodenitis versus pathology within the right side of the colon. At this point in time, I have recommended both an EGD and colonoscopy to the patient, but the patient wishes to hold off on colonoscopy. In fact, the patient refuses to have one and cannot tolerate the entire prep. RECOMMENDATIONS: 1. NPO except for medications. 2. Protonix IV 3. We will attempt to do EGD with anesthesia today for his melena. MTDD
[2017-01-21] MEDS ORDERED: Lactated Ringer's 1,000 ML IV ONE (11:23)
--- NOTE | 2017-01-21 11:51 | PCM.HPANE ---
Patient Data Date of Service: Jan 21, 2017 Surgeon Admitting Provider:Prasad Carter MD Attending Provider:Prasad Carter MD Primary Care Physician:Nopcp Other Provider: Reason for Visit Asymptamatic Anemia, Pleural Effusion Ht/WT & BMI Height (Feet): 5 Height (Inches): 8.00 Weight (Kilograms): 67.300 Body Mass Index 22.00 Allergies Coded Allergies: codeine (Verified Allergy, Unknown, 01/13/17) Past Anesthesia History Anesthesia History: Denies:: Abnormal Airway, Anesthesia Reactions, Difficult Intubation, Fam Anesthesia Reaction, Fam Malignant Hypertherm, Malignant Hyperthermia Diabetes History Hx Diabetes?: No MRSA MRSA: No Medications Blood Thinner: Aspirin, Plavix (ALSO ON ELIQUIS; RECENTLY ON HEPARIN GTT stopped this AM) Last Dose Blood Thinner: Jan 21, 2017 Hypertension Medication: No Home Meds Incl Beta Jackeline: No Reported Medications Zolpidem 5 Mg Tablet5 Mg PO HS PRN For Sleep #30 01/20/17 Lorazepam (Ativan)0.5 Mg Tablet0.5 Mg PO BID PRN For Anxiety #60 01/20/17 Ondansetron 8 Mg Tablet8 Mg PO BID PRN For Nausea #30 01/20/17 Clopidogrel 75 Mg [id number] Mg PO DAILY Ref 0 01/10/17 Lisinopril 5 Mg Tablet5 Mg PO DAILY #30 TABLET Ref 0 01/10/17 Atorvastatin (Lipitor)20 Mg [id number] Mg PO HS Ref 0 01/10/17 Aspirin 81 Mg [id number] Mg PO DAILY Ref 0 01/10/17 Apixaban (Eliquis)5 Mg Tablet5 Mg PO BID 01/10/17 Discontinued Reported Medications Oxycodone HCl/Acetaminophen 5-325 (Endocet 5-325)1 Each Tablet1-2 Tablet PO Q4H PRN For Pain 01/10/17 History History of ENT Problems?: No HEENT History: Positive for:: Cataracts (removed) Denies:: Abnormal Airway Difficult Intubation Hearing Problem Denture Type: None Teeth Condition: Broken Teeth Tooth Decay Missing Teeth Hx of Heart Problems?: No Cardiovascular History: Positive for:: Cardiac Surgery (iliac artery stents placed 2011) Hypertension Thrombophlebitis (currently has thrombus in R IJ) Denies:: AICD Atrial Fibrillation Chest Pain Congestive Heart Failure Coronary Artery Disease Edema Heart Murmur Irregular Heartbeat Pacemaker Valvular Heart Disease Other Cardiac History: denies KS Hx of Respiratory Problem?: Yes Respiratory History: Positive for:: Cough Dyspnea (can not climb a flight of stairs without stopping for 5 min. ) Pneumonia (Remote 15-20 years ago) Pulmonary Embolism (currently and being Rx w/ anticoagulation/heparin GTT) Use of Inhalers / NEBS Denies:: Asthma COPD Chest Surgery Emphysema Hemoptysis Tuberculosis Use of C-PAP Machine Other Resp Pertinent History: stage 4 lung cancer new dx 12/30 - pallitaive chemotherapy; 4L home O2; large pleural effusion L Hx Neurologic Problems?: No Neurological History: Denies:: CVA Dementia Dizziness Headaches Parkinson's Disease Seizures TIA Hx of GI Problems?: No Gastrointestinal History: Denies:: Gastroesphageal Reflux Liver Disease Hx of Problems?: No Skin History: Denies:: History Skin Disorders? Pressure Ulcers Hx Musculoskeletal Problems?: Yes Musculoskeletal History: Positive for:: Back Injury (MUSCLE STRAIN LOWER BACK) Musculoskeletal Trauma Denies:: Degenerative Joint Joint Replacement Systemic Lupus Hx of Psycho/Social Problems?: Yes Psycho Social History: Positive for:: Anxiety Denies:: Bipolar Disorder Hx Depression Suicide Attempt Hx Surgeries?: Yes (stent placement only) Hx Any Other Health Problems?: No Other History: Positive for:: Cancer (stage 4 lung cancer) Hospitalization Denies:: Thyroid Disease History Blood Transfusions: Positive for:: Accept Blood Products? Blood Transfusions Denies:: Blood Transfuse Reaction Hx Diabetes: No Hx Alcohol Use: NoHx Substance Use: No Smoking Status: Former Smoker Have You Smoked inLast 12 mo: No (QUIT 7 YEARS AGO) Stop/Bang Treated for Sleep Apnea?: No Do You Have a CPAP Machine?: No S-Snoring: Do You Snore Loudly: No T-Tired: feel tired, fatigued: No O-Obsered: Observed not breath: No P-Blood Pressure: treated: Yes B- Body Mass Index > 35 kg/m2: No A- Age over 50: Yes N- Neck Large Circumference: No G- Gender Male: Yes YLNN Total Score: 3 LYNN Risk Assessment: High Risk, =/>3 Yes LYNN Category 2: Yes Risk Assessment Category Category 1A: Patient has history of documented sleep apnea, and HAS NOT received any narcotic, sedative or anesthesia administration during this stay. Category 1B: Patient has history of documented sleep apnea, and HAS received any narcotic , sedative or anesthesia administration during this stay Category 2: Patient has SUSPECTED Obstructive Sleep Apnea, and HAS received any narcotic , sedative or anesthesia administration during this stay. Category 3: Patient has SUSPECTED Obstructive Sleep Apnea and HAS NOT received narcotic, sedative or anesthesia administration during this stay. Category 4: Outpatient in Procedural Areas with known sleep apnea or who screen positive for High Risk via the STOP/BANG questionnaire. Exam Exam Vital Signs Vital Signs Date Time Temp Pulse Resp B/P Pulse Ox O2 Delivery O2 Flow Rate FiO2 01/21/17 11:16 36.4 104 16 130/78 95 Nasal Cannula 4 01/21/17 10:53 111 01/21/17 08:21 110 34 94 Nasal Cannula 4.00 01/21/17 07:45 Supplement Oxygen 01/21/17 07:45 37.0 78 30 114/86 95 Nasal Cannula 4.00 01/21/17 04:28 112 01/21/17 04:05 37.0 104 18 128/76 97 Nasal Cannula 4.00 General Appearance: Alert, Oriented X3, Cooperative, Moderate Distress HEENT/AIRWAY: MP 3, Neck Movement (FROM), Mouth Opening (>3), Other (tmd<3) Lungs: Coarse, Rhonchorus, Wheezes (significant) Heart: Normal S1, Normal S2, Other (tachycardic) Additional Information moderate increased work of breathing Meds/Labs/Diagnostics Admission Meds Current Medications Pantoprazole (Protonix Inj) 80 mg ONCE ONCE IVPUSH Last administered on 15:17; Start 01/20/17 at 14:20; Stop 01/20/17 at 14:21; Status DC Benzonatate (Tessalon Pearles) 100 mg ONCE ONCE PO Last administered on 23:50; Start 01/20/17 at 23:40; Stop 01/20/17 at 23:41; Status DC Benzonatate 200 mg 200 mg ONCE ONCE PO Last administered on 01/21/17 04:04; Start 01/21/17 at 03:40; Stop 01/21/17 at 03:41; Status DC Lactated Ringer's (Lr) 1,000 ml @ ud STK-MED ONCE IV Last administered on 11:23; Start 01/21/17 at 11:23; Stop 01/21/17 at 11:24; Status DC Labs Test 01/20/17 11:55 01/20/17 12:03 01/20/17 12:48 01/21/17 03:00 Sodium Level 132mEq/L (134-144) Potassium Level 4.1mEq/L (3.5-5.2) Chloride Level 90mEq/L (97-108) Carbon Dioxide Level 24mmol/L (18-29) Blood Urea Nitrogen 15mg/dL (8-27) Creatinine 0.52mg/dL (0.76-1.27) Estimat Glomerular Filtration Rate 171mL/min (>59) Glucose Level 113mg/dL (60-99) Calcium Level 8.9mg/dL (8.5-10.1) Magnesium Level 1.8mg/dL (1.6-2.6) Total Bilirubin 1.0mg/dL (0.0-1.2) Aspartate Amino Transf (AST/SGOT) 28U/L (0-50) Alanine Aminotransferase (ALT/SGPT) 23U/L (0-44) Alkaline Phosphatase 90U/L (25-160) Total Protein 6.1g/dL (6.4-8.4) Albumin 2.7g/dL (3.4-5.0) Hold Virgen Top Tube Received (Received) Prothrombin Time 13.3sec (8.1-12.5) Prothromb Time International Ratio 1.24ratio White Blood Count 10.1th/mm3 (3.8-10.1) Red Blood Count 3.09mil/mm3 (4.40-5.80) Mean Corpuscular Volume 85.4fL (81-100) Mean Corpuscular Hemoglobin 28.2pg (27.0-35.0) Mean Corpuscular Hemoglobin Concent 33.0% (32.0-37.0) Red Cell Distribution Width 17.7% (12.3-15.4) Platelet Count 204bil/L (150-400) Neutrophils (%) (Auto) 84.6% (40-74) Lymphocytes (%) (Auto) 7.5% (14-46) Monocytes (%) (Auto) 6.5% (4-12) Eosinophils (%) (Auto) 0.8% (0-5) Basophils (%) (Auto) 0.1% (0-3) Procalcitonin 0.26ng/mL (0.00-0.08) Test 01/21/17 11:07 01/21/17 11:08 Hemoglobin 9.4g/dL (13.8-17.2) Hematocrit 28.7% (41.0-50.0) Plan Impression Patient chart reviewed, patient interviewed and anesthestic plan with risks, benefits, and alternatives discussed, and informed consent obtained. NPO per Anesth. Guidelines: Yes ASA Physical Status: ASA4 Plus Emergency Anesthetic Plan: TIVA Bene/Risks/Altern/Consents: Yes HP Complete Prior to Induction: Yes Murray López MD Jan 21, 2017 11:51
[2017-01-21] MEDS ORDERED: Albuterol-Ipratropium 3 mL Inhalation Solution NEB ONE (11:55)
--- NOTE | 2017-01-21 12:03 | NUR ---
Social Work: Initial Assessment/Multidisciplinary Rounds D: Per EMR review, pt is a 61 year old male admitted for Asymptamatic anemia, plueral effusion. Pt is Medicare with no supplement, LTC or VA benefits. Pt states he does not have a PCP and is not interested in an appointment with the residency clinic. NOK is Kumar Hernandez, neighbor, . Advanced directives information declined when offered by SOCIAL MEDIA MARKETING ANALYST. Pt is a readmit and was discharged home on 01/04 with no sw needs. Readmit score is high 5/8. Pt discussed in am rounds. Capacity for self-care addressed; no concerns identified at this time. SOCIAL MEDIA MARKETING ANALYST met with the patient at bedside. Sw role explained, contact info and d/c planning checklist provided. Pt lives in [place], renting a small basement apartment from his NOK/Neighbor. The patient has approximately 10 steps to get down to his apartment in which he states has not been an issue. Pt does not use DME except for home 02 through [facility]. The patient has never had HH or skilled rehab and is I with his own self care. He does not drive and relies on public transportation and rides from friends to get to appointments. The patient states that he is followed by the cancer care center and works closely with Oncology SOCIAL MEDIA MARKETING ANALYST, Richard Ramires. t/c to Richard Ramires ([phone]); left message notifying of the patient's admit and to inquire about any concerns/needs for discharge. SOCIAL MEDIA MARKETING ANALYST requested return phone call. A: Pt who is I at baseline but may require some supportive services at discharge. P: Evolving; SOCIAL MEDIA MARKETING ANALYST to continue to follow to assess for discharge needs. DUANE Douglass Addendum: 01/21/17 at 1210 by DARRYL KENNY Amended: Links added.
--- NOTE | 2017-01-21 13:42 | ENDO ---
[address] [address] ENDOSCOPY PROCEDURE PATIENT: MONTRELL ASCENCIO : 1955 MR#: [id number] ADMIT: 01/20/2017 JOB ID: [id number] DATE OF SERVICE: 01/21/2017 TYPE OF OPERATION: Esophagogastroduodenoscopy. PREOPERATIVE DIAGNOSIS(ES): Melena, anemia. POSTOPERATIVE DIAGNOSIS(ES): Normal upper endoscopy. ANESTHESIA: Monitored anesthesia care. COMPLICATIONS: None. BLOOD LOSS: Minimal. DESCRIPTION OF PROCEDURE: After risks and benefits explained to the patient informed consent was obtained. After anesthesia administered, upper endoscope was then inserted in mouth, intubated into esophagus, stomach, second portion of duodenum. Mucosa carefully examined. After procedure was done, the scope withdrawn, procedure terminated. FINDINGS: Upon inspection of the esophagus, esophagus was normal without masses, ulcers, or lesions. Z-line located at 40 cm from incisors. Upon entering the stomach, the stomach was also normal without masses, ulcers, or lesions. Retroflexion was normal. Duodenal bulb, first and second portion normal. There was no evidence of any signs of overt GI bleeding that was seen. IMPRESSIONS: Normal upper endoscopy. RECOMMENDATIONS: Okay to start clear liquid diet. Recommendations per GI consultation team.
--- NOTE | 2017-01-21 14:11 | NUR ---
NUTRITION ASSESSMENT: ASSESS: Pt is a 61yo M admitted for anemia and pleural effusion. Pt has history of stage IV lung ca. He reported ~ 40lb wt loss x 6 months. Pt reported that his UBW is ~84kg (185lbs)= 19% wt loss x6 months-severe wt loss. Pt had EGD today for anemia, he refused a colonoscopy. Plan for VATS procedure on . He is currently NPO for EGD. He was on a General diet prior to NPO Status. PO x1 meal was good at 90%. Pt reported that his appetite is decreased and that he isn't hungry for large amounts of food. He doesn't cook much and will either eat at a restaurant or do a tv dinner. Pt does not like Ensure but reported that he is going to start drinking one at home and mix it with ice cream. PMHX: HTN, HLD, PVD, Depression, lung ca LABS: Reviewed. 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 senna GI: BMx2 01/21 SKIN: No major issues CURRENT WTS: 67.3kg, BMI 22.6kg/m2, IBW: 70kg, UBW: 84kg, ~19% wt loss x6 months DIET: NPO for EGD EST. NEEDS: ca, wt loss Kcals: 2020-2355kcal/day (30-35kcal/kg) Pro: 70-100g/day (1.0-1.5g/kg) NUTRITION DIAGNOSIS: 1.) Moderate pro/kcal malnutrition in the context of chronic illness related to lung ca as evidence by 19% wt loss x6 months, poor PO intake of <75% estimated energy requirements for >1 month and diagnosis of lung ca. NUTRITION INTERVENTION: 1.) Provided high kcal/pro nutrition therapy handout. Discussed eating smaller more frequent meals (~6 meals/day) rather than 3 and trying to eat higher kcal/pro foods. Pt agreed to try this once he gets home. He does not like Ensure and does not want to get one here at the hospital but reported that he will drink one/day after he is discharged. 2.) Recommend advance diet when medically appropriate. 3.) Oncology RD will continue to monitor pt through [facility] MONITOR / EVAL: PO, wt, GI, labs, POC, nutrition status. Will continue to monitor per high nutrition risk guidelines
[2017-01-21] MEDS: 0.9% Sodium Chloride 250 ML IV SCH (15:24)
--- NOTE | 2017-01-21 15:39 | PROG NOTE ---
[address] [address] PROGRESS NOTE PATIENT: MONTRELL ASCENCIO : 1955 MR#: [id number] ADMIT: 01/20/2017 JOB ID: [id number] DATE: 01/21/2017 The patient remains stable. He is scheduled to have an upper endoscopy today. I discussed his care with Dr. Prasad Carter. I also discussed it last night with Dr. Muna Bob. The patient understandably wants to move forward as soon as possible, but I will not be able to do his planned operation, which is a left VATS decortication, until . I explained this to the patient. I have put him on the operative schedule. Time spent with patient, and also in coordination of care 25 minutes.
[2017-01-21] MEDS ORDERED: Heparin 5,000 Unit/mL Inj IVPUSH PRN (16:15)
[2017-01-21] MEDS ORDERED: Heparin 25K Unit/500mL 0.45 NS 25,000 UNIT in IV Premix 1 EACH IV SCH (16:15)
--- NOTE | 2017-01-21 16:24 | PCM.ANEP1 ---
Post Anesthesia PACU Phase 1 Assessment Date of Service: Jan 21, 2017 Vital Signs Vital Signs Date Time Temp Pulse Resp B/P Pulse Ox O2 Delivery O2 Flow Rate FiO2 01/21/17 13:34 37.1 110 26 144/84 94 Nasal Cannula 4.00 01/21/17 12:57 119 130/85 95 Nasal Cannula 4 01/21/17 12:46 118 127/85 94 Room Air 01/21/17 12:38 36.7 118 38 131/61 95 Nasal Cannula 4 01/21/17 12:04 106 28 98 Nasal Cannula 4.00 01/21/17 11:16 36.4 104 16 130/78 95 Nasal Cannula 4 01/21/17 10:53 111 Anesthetic Administered: TIVA Level of Alertness: Awake, talking REYNOLDS's with Equal Strength: Yes (baseline) Pain: No Pain Scale Score: 0 Nausea or Vomiting: No CV Function & Hydration Stable: Yes Airway Device: none Oxygen Delivery: Nasal Cannula Lungs: Coarse, Rhonchorus, Wheezes (significant) Summary 01/21/17 13:34 37.1 110 26 144/84 94 Nasal Cannula 4.00 PACU Phase 2 Assessment Complications: No Follow up Care: N/A Patient Instructions Provided: N/A Murray López MD Jan 21, 2017 16:24
--- NOTE | 2017-01-21 16:48 | NUR ---
Heparin drip Restarted at 1648. Rate is 18units/kg/hr (24.1ml/hr). Addendum: 01/21/17 at 1652 by CHARITY RODRIGUEZ RN PTT to be drawn at 01/21 0692 and 01/22 9342
--- NOTE | 2017-01-21 17:23 | NUR ---
Cardiac/Resp/Mood/Diet Tele SR/ST up to 170 with coughing. Pt denies chest pain. Tele monitor reported one episode of 6 beats of Vtach. Resp: Pt continues to experience episodes of productive coughing with moderate amounts of creamy sputum. Pt concerned that the coughing will keep him from sleeping. Pt administered PRN Neb treatment and Tessalon Pearls with some relief. Discussed pt's concerns with MD. Orders for an increase in his dose of Lorazepam were placed. Mood Pt is very negative in his mood, C/O doctors not visiting him because he is of low priority. Pt had 4 different MDs in his room today. Diet Pt tolerated clear liquid diet after endoscope procedure. Upgraded to general diet by MD. Will continue to monitor.
--- NOTE | 2017-01-21 19:29 | PROG NOTE ---
[address] [address] PROGRESS NOTE PATIENT: MONTRELL ASCENCIO : 1955 MR#: [id number] ADMIT: 01/20/2017 JOB ID: [id number] DATE: 01/21/2017 DIAGNOSIS: Stage IV pulmonary adenocarcinoma, driver medic mutation negative, associated with malignant loculated left-sided pleural effusion. HISTORY OF PRESENT ILLNESS: The patient is a 61-year-old, former smoker gentleman, with peripheral arterial disease, hypertension, hyperlipidemia, previous silent lacunar infarct, and recent diagnosis of stage IV pulmonary adenocarcinoma. He has bilateral lung masses, larger one measuring 5.3 cm in left upper lobe, associated with malignant loculated left-sided pleural effusion, pleural metastases, and bilateral hilar and mediastinal lymphadenopathy. Cytology of left-sided pleural fluid was positive for adenocarcinoma. He has received cycle one, day one chemotherapy with carboplatin AUC 5 and paclitaxel 80 mg/m2 on January 15. The patient was sent for left-sided thoracentesis yesterday, but the fluid was completely loculated with honeycombing in pleural space and gelatinous texture fluid. Therefore, thoracentesis was not done and he was sent to the ED for admission and chest tube placement. He was severely anemic with hemoglobin 7.3. He was given 2 units blood transfusion. His Eliquis, Plavix and aspirin have been put on hold. He had melenic stools and therefore had EGD today which was normal. He has been seen by Dr. Iron Carter, who has recommended VATS thoracoscopy with decortication and chest tube placement and has tentatively scheduled patient on January 23. SUBJECTIVE: Currently, he is very dyspneic, even at rest. He has a persistent cough. He appears very tired and has not been able to sleep well. He is hoping to get some sleep tonight. OBJECTIVE: Appears very dyspneic at rest. Awake, alert, oriented x3. Appears pale and very tired. Blood pressure 144/94, heart rate 106, respiratory rate 30, O2 saturation mid 90s on 4 L. Lungs: Bilateral crackles and diminished breath sounds. LABORATORY DATA: Reviewed. Important abnormalities include low albumin and anemia. IMPRESSION AND RECOMMENDATIONS: 1. Progressive dyspnea, primarily due to advanced stage pulmonary adenocarcinoma. He also recently had pulmonary embolism. I will place an order for CT chest angiogram tomorrow to make sure progressive pulmonary embolism is not a major factor in his progressive dyspnea. Will also check a proBNP, and if elevated, will need diuretic therapy. I completely agree with Dr. Carter's recommendation, but want to make sure that progressive pulmonary embolism is not a major player. 2. Stage IV pulmonary adenocarcinoma. His cycle one, day eight chemotherapy will be skipped this week. I will return tomorrow evening for followup.
[2017-01-22] VITALS (9 sets, daily range): BP systolic 114–139; BP diastolic 76–87; PULSE 92–108; RESP 22–38; O2SAT 92–98
--- NOTE | 2017-01-22 05:53 | NUR ---
Ativan Per report from aid at shift change, patient requested sleep aid "but not whatever they gave me before because that didn't work." 1mg Ativan administered IVP at 1999; patient able to rest throughout shift with minimal interruptions. At approx. 0100, patient's call light on and upon entering room, patient found standing at edge of bed with gown off. When asked what happened, patient reported "I had a bad dream." Patient assisted to sit on edge of bed; patient stated "Turn the lights on. Turn them all on. It's all gone." When asked if patient knew where he was, patient looked around hospital room and stated "...I'm in the hospital." When patient asked if he knew why he was in the hospital, patient stated "...I don't know." Pt reoriented to situation and place, and patient stated "Oh yeah...I remember now." Patient assisted to lay down in bed and patient fell promptly back to sleep. Benzonatate given x1 this AM, patient otherwise resting through most of shift without frequent coughing. VSS. Tele afib 100s, occasional nonsustained increases during coughing. Heparin gtt infusing at 21units/kg/hr. NPO after midnight.
--- NOTE | 2017-01-22 07:38 | PCM.PNSURG ---
Subjective Date of Service: Jan 22, 2017 Date of Service: Jan 22, 2017 Visit Information: Subjective: nurses report no further melena overnight. s/p egd yesterday- nl. No gi complaints per pt. Postop General: No Complaints Objective Vital Sign- Last 8 Hours Date Time Temp Pulse Resp B/P Pulse Ox O2 Delivery O2 Flow Rate FiO2 01/22/17 03:49 36.8 92 24 139/87 92 Nasal Cannula 4.00 Intake and Output- Last 8 Hour 01/22/17 Cumulative From/Thru 07:00 01/20/17 11:38 - 01/22/17 07:00 Intake Total 341 ml 1894 ml Output Total 425 ml 1025 ml Balance -84 ml 869 ml Intake Oral 450 ml IV Total 341 ml 834 ml Packed Cells 610 ml Output Urine Total 425 ml 1025 ml # Voids 2 # Bowel Movements 3 General: Oriented X3 Neck: Supple Lungs: Diminished (left side) Heart: Exam Unremarkable Abdomen: Benign, Soft, Non-tender, Non-distended, Normoactive bowel tones Extremities: Distal Pulses Palpable Result Diagram: 01/21/17 1108 01/20/17 1155 Assessment & Plan Impression This is a pleasant, 61-year-old, male, with a history of hypertension , hyperlipidemia, peripheral vascular disease, deep venous thrombosis (DVT) and pulmonary emboli (PE), on anticoagulation such as aspirin, Plavix and Eliquis as an outpatient, history of stage IV adenocarcinoma with a left pleural effusion, presents here for melena for the past one week. Differential diagnosis includes peptic ulcer disease versus esophagitis versus gastritis versus duodenitis versus pathology within the right side of the colon. At this point in time, I have recommended both an EGD and colonoscopy to the patient, but the patient wishes to hold off on colonoscopy. In fact, the patient refuses to have one and cannot tolerate the entire prep. s/p egd 01/21/17- nl 01/22/2017- no further melena per nursing staff. RECOMMENDATIONS: 1. Hold off on colonoscopy per pt wishes will sign off. Call me if ?s. Thanks. Problems: Resuscitation Status: CPR: Attempt Resuscitation Anurag Warren MD Jan 22, 2017 07:38
[2017-01-22 07:59] LABS: APPEARANCE,URINE CLEAR (CLEAR,HAZY); COLOR,URINE DARK YELLOW (YELLOW); PH,URINE 5.5 (5.0-8.0)
[2017-01-22 08:00] LABS: OCCULT BLOOD,URINE NEGATIVE (NEGATIVE); UROBILINOGEN,URINE NORMAL (NORMAL)
[2017-01-22] MEDS: 0.9% Sodium Chloride 250 ML IV SCH ×2 (08:01→14:46)
--- NOTE | 2017-01-22 08:15 | NUR ---
pt left floor for CTA, a&o x3, vss
--- NOTE | 2017-01-22 08:27 | PCM.PNSURG ---
Subjective Date of Service: Jan 22, 2017 Visit Information: Reason for Visit Asymptamatic Anemia, Pleural Effusion Surgery/Surgery Date Post-Op Day # Date of Admission: Jan 20, 2017 at 14:11 Hospital Day # Subjective: No acute overnight events Continues to feel short of breath and have wet cough. Not worse today than yesterday Afebrile. No other complaints. Objective Vital Sign- Last 8 Hours Date Time Temp Pulse Resp B/P Pulse Ox O2 Delivery O2 Flow Rate FiO2 01/22/17 03:49 36.8 92 24 139/87 92 Nasal Cannula 4.00 Intake and Output- Last 8 Hour 01/22/17 Cumulative From/Thru 07:00 01/20/17 11:38 - 01/22/17 07:00 Intake Total 341 ml 1894 ml Output Total 425 ml 1025 ml Balance -84 ml 869 ml Intake Oral 450 ml IV Total 341 ml 834 ml Packed Cells 610 ml Output Urine Total 425 ml 1025 ml # Voids 2 # Bowel Movements 3 General: Alert, Oriented X3, No Acute Distress Neck: Supple Lungs: Other (Mildly labored, wet cough.) Abdomen: Benign Extremities: Warm Result Diagram: 01/21/17 1108 01/20/17 1155 Assessment & Plan Impression 61M with stage IV lung cancer and large left malignant pleural effusion. Problems: Plan - Agree with plan for CTPE today to ensure no progression of pulmonary embolus - Continue supplemental O2 and supportive care - Tentative plan for VATS tomorrow, which is in line with the patient's goals of care - NPO at midnight Resuscitation Status: CPR: Attempt Resuscitation Donny Ghosh MD Jan 22, 2017 08:26
[2017-01-22] MEDS ORDERED: Furosemide 10 mg/mL 2 mL Inj IVPUSH ONE (08:30)
--- NOTE | 2017-01-22 08:46 | PCM.PNMED ---
Subjective Date of Service Jan 22, 2017 Subjective he remains very short of breath. He declines a bypass because it makes him very anxious. He denies any nausea. He denies a productive cough but does not report persistent dry cough. No pedal edema. No abdominal pain, or nausea. No diarrhea. He is anorexic. No overnight events noted. Exam Vital Signs Vital Sign - Last Date Time Temp Pulse Resp B/P Pulse Ox O2 Delivery O2 Flow Rate FiO2 01/22/17 03:49 36.8 92 24 139/87 92 Nasal Cannula 4.00 Intake and Output 01/21/17 01/21/17 01/22/17 Cumulative From/Thru 15:00 23:00 07:00 01/20/17 11:38 - 01/22/17 07:00 Intake Total 100 ml 593 ml 341 ml 1894 ml Output Total 300 ml 425 ml 1025 ml Balance 100 ml 293 ml -84 ml 869 ml Intake Oral 100 ml 200 ml 450 ml IV Total 393 ml 341 ml 834 ml Packed Cells 610 ml Output Urine Total 300 ml 425 ml 1025 ml # Voids 2 2 # Bowel Movements 2 1 3 Exam Alert and oriented -3, no distress. Fluent speech Anicteric sclera. Lungs are with diffuse wheezing bilaterally globally diminished breath sounds in the left side and told percussion left base. He is tachypneic and appears to be in moderate respiratory distress. Heart is regular without murmur gallop or rub, tachycardic Abdomen soft nontender, flat Extremities are free of edema. Skin is free of rash or lesions. IVs and Medications Medications Reviewed: Medications were reviewed in detail Lab and Diagnostics Result Diagram: 01/21/17 1108 01/20/17 1155 X-Rays, CTs and MRIs X-RAY CHEST ONE VIEW, PORTABLE IMPRESSION: Moderate sized left-sided pleural effusion. Increased left lung opacification which could represent compressive atelectasis versus pneumonia. Dictated by: Sarai Silva MD, PhD on 01/20/2017 at 12:11 Assessment & Plan Patient is a 61 year old male with a hx of HTN, hyperlipidemia, peripheral vascular disease, and lung cancer who presents to the ED from ultrasound for a palliative thoracentesis but needs chest tubes due to thick nature of fluid and also is anemic with a recent history of melena. Currently receiving 1 U PRBCs and being evaluated for chest tube. #. Acute on Chronic Respiratory Failure, present on admission. Active and ongoing. - Loculated effusion on the Left side with thick sample from thoracentesis, likely parapneumonic effusion, vs empyema, vs pneumonia, - On home O2 at 3L since 01/10/17. - On 4L currently. - Sputum / Blood Cx ordered. - IS and acapella ordered. - Procalcitonin ordered. - Surgery consulted. VATS is scheduled for . Until then supplemental oxygen. A repeat CT angiogram to rule out new pulmonary embolism is pending. The patient will be given Lasix 20 mg IV to see if this improves his pulmonary status. #. Recurrent severe left-sided malignant pleural effusion, POA and active. VATS is scheduled for morning per Dr. Pamela Carter #. Probable Acute Blood loss Anemia, present on admission. Active and improved. - Patient reports as scheduled transfusion this Friday01/22/17. - Stool guaiac positive. - Hgb 7.3 trending down. - 1U PRBC's 01/20/17. Q2H H&H. - PPI 80 IV push, will plan on PPI ggt (may consider IV 40 BID.) - GI consulted. No evidence of bleeding ulcer. Protonix stopped. We will follow hematocrit and transfuse as necessary. #. Stage IV Pulmonary Adenocarcinoma, present on admission. Active. - 12/24/2016 with progressive dyspnea. Had a therapeutic thoracentesis and had a bronchoscopy on 01/03/2017He was found to have multiple lung masses and large left pleural effusion. - Dr. Muna Bob on 01/07/2017 planned to start Palliative chemotherapy 01/22- carboplatin and paclitaxel, but the infusion center was unable to get a peripheral IV, so Port placed in Left IJ. - Outpatient Med Onc notes in paper chart. - Palliative thoracentesis scheduled weekly. May require VATS or Chest tube. Other chronic issues. #. Moderate protein caloric malnutrition, POA and active. Continue to encourage increased oral intake. #. Peripheral Arterial Occlusive Disease, POA and stable. - Bilateral Femoral stents placed. #. Hypertension. POA and stable. - Has not taken home meds for 5 days. - Will continue home lisinopril when appropriate. #. Hyperlipidema. POA and stable - Has not taken home meds for 5 days. - Will continue home lisinopril when appropriate. #. History of DVT/PE. POA and active. - 12/31/2016, was diagnosed with pulmonary embolism with a CT pulmonary angiogram - Thrombus in right IJ. - Holding home Eliquis, ASA, Clopidogrel. - On PE heparin ggt. We will stop heparin drip until completing endoscopy given ongoing apparent loss and melena. #. Protein Calorie Malnutrition, present on admission. Active. - States 40 lb weight loss recently. - Albumin 2.7. - Dietary consult. Acetaminophen for mild pain when necessary. Bowel regimen Senna and MiraLAX scheduled and PRN. Zofran when necessary for nausea and vomiting. Heparin ggt for now. SCDs not in place due to PAD and femoral stents. High-risk medications: IV Heparin drip Patient Status: Patient is admitted under inpatient status with expected length of stay greater than 2 midnights due to severity of presenting symptoms, risk of adverse event, and complexity of treatment plan. VTE Mechanical Devices: Intermittant Pneumatic CD Resuscitation Status: CPR: Attempt Resuscitation Prasad Carter MD Jan 22, 2017 08:46
--- NOTE | 2017-01-22 09:08 | PCM.ADCARE ---
Advance Care Planning Note Purpose of Encounter: To discuss local care as well as intubation for respiratory support if needed. Parties in Attendance: Patient Decisional Capacity: He is decisional Subjective: He continues to be very short of breath with moderate respiratory distress. He declines noninvasive positive pressure ventilation. Objective: He is tachypneic, has diffuse wheezing. He also has breath sounds on the left entire along with a dull left lung base. Goals of Care Determinations: Due intubated for respiratory failure if required. Patient is full resuscitation Patient wants to continue to try to lose long as possible knowing that he does have incurable lung cancer. Plan: VATS tomorrow Await CT angiogram results today. Continue heparin drip for chronic thromboembolic disease Continue nebulizers Attempt diuresis with Lasix 20 mg IV 1 Patient declines noninvasive positive pressure ventilation Intubation if required for hypoxic or hypercarbic respiratory failure. CODE STATUS: Full code Time Spent Adv.Care Plannin minutes Adv. Care Plan Documenation: As above Prasad Carter MD Jan 22, 2017 09:08
--- NOTE | 2017-01-22 10:09 | DRSVH ---
PROCEDURE: CT ANGIO CHEST PULMONARY EMBOLISM ([id number]) INDICATIONS: Reassess PE TECHNIQUE: After the administration of intravenous contrast, 2 mm thick sections acquired from the pulmonary api cj to the posterior costophrenic angles. 3-dimensional maximum intensity projection (MIP) coronal a nd sagittal reformats were then acquired through the thorax. For radiation dose reduction, the follo wing was used: automated exposure control, adjustment of mA and/or kV according to patient size. COMPARISON: [facility], CT, CT ANGIO CHEST PE, 12/31/2016, 13:46. FINDINGS: Image quality: Excellent. Pulmonary arteries: Pulmonary arteries are normal in size, and demonstrate no intraluminal filling d efects to suggest central pulmonary embolism. Lungs and pleura: Lungs are prominently abnormal with a very large malignant left effusion compressi ng the left lung with resultant atelectasis, and there is also a mild increase in mediastinal shift f rom left to right associated with this finding, with reference to the recent CT scan 12/31/16. No pne umothorax. Central and peripheral airways are unchanged, with compressive and neoplastic restriction of air flow within the left lung and hilum. New small right effusion. Mediastinum: Heart size is normal, without pericardial effusion. No new mediastinal or hilar adenop athy but previously present enlarged nodes appears slightly enlarged. Thoracic aorta is normal in ca liber and enhancement. Esophagus is normal in caliber, without hiatal hernia. Bones and chest wall: No suspicious bony lesions. Ribs and thoracic spine appear intact throughout. Thyroid gland appears normal where well visualized. No axillary or supraclavicular adenopathy. Abdomen: Visualized upper abdominal solid organs appear normal in the early arterial phase of enhanc ement. IMPRESSION: Resolution of a single small right lower lung pulmonary embolus, no new emboli are seen, but there has been a mild interval worsening of extensive metastatic disease previously present in te bre of increased pleural effusion, now present also on the right, and slowly enlarging mediastinal an d hilar adenopathy with mild increased constriction of the central bronchi on the left. Dictated by: Deon Flores M.D. on 01/22/2017 at 9:29 Approved by: Deon Flores M.D. on 01/22/2017 at 10:07
--- NOTE | 2017-01-22 18:15 | PROG NOTE ---
[address] [address] PROGRESS NOTE PATIENT: MONTRELL ASCENCIO : 1955 MR#: [id number] ADMIT: 01/20/2017 JOB ID: [id number] DATE: 01/22/2017 SUMMARY: The patient is seen in followup. Just as I entered the room, Dr. Bob came in. Together we reviewed his CT scan from today which shows unfortunately very impressive progression of tumor. He has now developed a large mediastinal adenopathy. I cannot see any contrast in the superior vena cava. He has external compression of his left main stem bronchus and has developed a moderately large right pleural effusion. Dr. Bob and I discussed options and also whether or not a VATS would even be of any benefit, and I do not think it would be. Dr. Bob and I then met with the patient and a friend that was present, Rachel Sullivan. Dr. Bob advised the patient not to have the operation, and in fact not to do any chemotherapy, and to proceed only with comfort care measures. Dr. Bob convinced the patient to change his code status to no CPR and no intubation. The patient concurred with these recommendations. I obviously have cancelled his operation for tomorrow. Please contact me if you need me to be involved any further with the patient. Time spent with the patient and in coordination of care: 30 minutes.
[2017-01-22 18:20] LABS: Mean Corpuscular Hemoglobin 27.9 pg (27.0-35.0); Mean Corpuscular Volume 85.8 fL (81-100)
--- NOTE | 2017-01-22 18:20 | PROG NOTE ---
[address] [address] PROGRESS NOTE PATIENT: MONTRELL ASCENCIO : 1955 MR#: [id number] ADMIT: 01/20/2017 JOB ID: [id number] DATE: 01/22/2017 INPATIENT MEDICAL ONCOLOGY PROGRESS REPORT: DIAGNOSIS: Stage IV pulmonary adenocarcinoma. SUBJECTIVE: The patient's dyspnea is worse than yesterday. Today he appears very lethargic and very dyspneic. He is nonambulatory. OBJECTIVE: Very lethargic, but communicative and responsive. Respiratory rate in 30s, blood pressure 114/76, heart rate 108, temperature afebrile. CT chest angiogram was reviewed with Dr. Deon Flores and Dr. Iron Carter. As compared to just three weeks ago there has been significant progression of metastatic disease including mediastinal and bilateral hilar adenopathy, progression of malignant loculated left-sided pleural effusion, and new development of right-sided pleural effusion. IMPRESSION AND RECOMMENDATIONS: I had a long conversation with patient and his significant other, along with Dr. Iron Carter today. We explained to him that, given the progression of mediastinal adenopathy and central airway obstruction, we think the surgery to evacuate the left-sided pleural effusion and decorticate the pleural rind would most likely not benefit him and would not lead to a reexpansion of the left lung. The patient hesitantly understands and agrees. I am concerned that he appears getting worse every day and my sense is that he did not respond to the chemotherapy dose that was given a week ago. I am concerned about CO2 retention. I will place an order for an ABG tonight and we will contact the palliative team tomorrow morning to discuss end of life care with him. If his condition is the same or worse tomorrow, in my opinion comfort care would be the best route for this gentleman. We did discuss resuscitation issues and he would like to be DO NOT RESUSCITATE/DO NOT INTUBATE. PLAN: 1. ABG tonight. 2. Palliative care consult tomorrow. 3. DNR/DNI. 4. Canceled planned left pleural decortication tomorrow.
--- NOTE | 2017-01-22 18:25 | NUR ---
Respiratory/possible change in tx course Pt labored and sob continously. Received Ativan x2 and tessalon pearle x1. Some reduction in sob noticed. IV Lasix given, small decrease in wheezing/sob. Morphine given, BP stable. Pt reports mild reduction in sob and air hunger. VATS procedure cancelled, most likely moving to comfort care. MD to reassess in am as well as palliative care MD. Pt verbalized agreement, wants meds to make him comfortable. Made comments about giving up and the doctors have lost all hope. Reassurance given, encouraged pt to talk to palliative care MD.
--- NOTE | 2017-01-22 19:16 | ABG ---
DateTimeAnalyzed 19:10:00 -_ pH ____7.431 - 7.350 7.450 pCO2 ___45.0__ -mmHg 35.0 45.0 pO2 ___82.5__ -mmHg 69.0 116 HCO3- ___29.4__ -mmol/L 22.0 26.0 ABE ____5.1__ -mmol/L -2.0 2.0 tHb ____8.6__ -g/dL 12.0 18.0 O2Hb ___93.3__ -% COHb ____2.5__ -% 0.0 1.5 MetHb ____0.6__ -% 0.4 1.5 sO2 ___96.3__ -% 25.0 FIO2 ___21.0__ -% Drawn By MD - Date/Time Notified____ 19:16:00 -_ Spontaneous_RR ___32.0__ -b/min Liter_Flow ____4.0__ -L/min Oxygen Device 1 __CANNULA - Notified By MD - Notified Whom _RN JESE - B 755 -mmHg tO2 ___11.4__ -Vol% Prasad test _Positive -
--- NOTE | 2017-01-22 19:34 | NUR ---
Per his request, Dr. Bob upated with pt's ABG results at 0730 over the phone. Addendum: 01/23/17 at 0454 by JESE TOURE RN Respiratory status remains unchanged, tachypnic 27-32, maintains 95% on 4L O2 NC. 4 mg MS IVP given x2 for air hunger with effective results. Hgb 8.3 this AM, per provider no new orders at this time, continue to monitor for increasing SOB/dyspnea/O2 needs. Per heparin PE protocol, next draw 8 AM. Plan for palliative consult in AM.
[2017-01-22] MEDS: Albuterol-Ipratropium 3 mL Inhalation Solution NEB PRN (22:25)
[2017-01-23] VITALS (10 sets, daily range): BP systolic 106–136; BP diastolic 68–86; PULSE 92–101; RESP 18–30; O2SAT 96–98
[2017-01-23 03:31] LABS: Mean Corpuscular Hemoglobin 27.9 pg (27.0-35.0); Mean Corpuscular Volume 87.2 fL (81-100)
[2017-01-23] MEDS ORDERED: Lactated Ringer's 1,000 ML IV SCH (05:00)
--- NOTE | 2017-01-23 11:18 | NUR ---
Palliative Care Palliative Care received order from Dr Bob 01/22/17 to assist with goals of care. Patient readmitted 01/20/17. Palliative Care to follow. Di Majano
--- NOTE | 2017-01-23 11:40 | PROG NOTE ---
[address] [address] PROGRESS NOTE PATIENT: MONTRELL ASCENCIO : 1955 MR#: [id number] ADMIT: 01/20/2017 JOB ID: [id number] DATE: 01/23/2017 DIAGNOSIS: Stage IV and progressive pulmonary adenocarcinoma. HISTORY OF PRESENT ILLNESS: The patient is a 61-year-old former smoker gentleman with peripheral arterial disease, hypertension, dyslipidemia, previous silent lacunar infarcts and recent diagnosis of a stage IV pulmonary adenocarcinoma. Negative for genetic alterations involving EGFR, ALK and ROS1. We recently started carboplatin/weekly paclitaxel chemotherapy. He has been admitted to hospital for progressive dyspnea, upper GI bleed and severe anemia. He was initially scheduled for left VATS thoracoscopy for lysis of adhesions and decortication, but CT chest angiogram yesterday showed widespread tumor progression including in mediastinal and bilateral hilar lymph nodes and central airway obstruction. There is also new effusion on the right side. We, therefore, canceled planned surgery. This morning he looks a little better than last night. He is not as markedly lethargic. He is non ambulatory. He uses a urinal in bed. He has not had a bowel movement for a couple days. He is still markedly dyspneic by inspection, but says he feels all right at rest. He continues to have a major cough. He denies any hemoptysis. OBJECTIVE: Appears dyspneic and somewhat lethargic. Awake, alert, oriented x3. Vitals all normal. O2 saturation high 90s on 4 L. Temperature remains afebrile. LABORATORIES: Hemoglobin down to 8.3. The rest of CBC is normal. Basic metabolic profile is normal other than CO2 30. ABG last night did not show CO2 retention, pH 7.4, pCO2 45 and pO2 82.5. IMPRESSION AND PLAN: I had a long conversation with the patient today. He is fully aware of his poor prognosis. He would like to continue palliative chemotherapy if there is hope of improvement in his cancer-related symptoms and prolonging survival. The fact is we do not know if chemotherapy has worked or not, but he just recently started it a week ago, and it is too soon to know. He would like to continue treatment if it is reasonable. We will, therefore, give planned Taxol infusion today which is a mild chemotherapy dose. We have also requested palliative care consult to further discuss his end of life wishes, and if he decides to switch to comfort care in the setting of hospice, that would be very reasonable and acceptable. Given that CT chest angiogram yesterday showed resolution of his single small pulmonary embolus, we can stop heparin drip in the context of poor prognosis from advanced lung cancer, but I do recommend to continue dual anti-platelet therapy, given his peripheral arterial disease and femoral artery stents. I will also give 1 unit packed red blood cell transfusion today. We will also review his current medication list and decrease the dose of lorazepam given high risk of respiratory depression when combined with opioids.
--- NOTE | 2017-01-23 11:45 | PCM.PNMED ---
Subjective Date of Service Jan 23, 2017 Subjective 61-year-old man with stage IV lung adenocarcinoma, history of VTE subsequently on anticoagulation, peripheral vascular disease on dual antiplatelets, and recent acute blood loss anemia presents with respiratory distress related to progressive lung cancer. Main complaint today is some disc which has not changed from recent days. He reports no pain. He does report anxiety and feels that lorazepam helps him. He is moving his bowels. His appetite is poor. Is frustrated by fluid restriction but states his mouth is not dry. His discuss options with Dr. Bob and wishes to proceed with further chemotherapy, not hospice. Exam Vital Signs Vital Sign - Last Date Time Temp Pulse Resp B/P Pulse Ox O2 Delivery O2 Flow Rate FiO2 01/23/17 10:16 99 01/23/17 08:30 36.8 22 116/78 98 Nasal Cannula 4.00 Intake and Output 01/22/17 01/22/17 01/23/17 Cumulative From/Thru 15:00 23:00 07:00 01/20/17 11:38 - 01/23/17 06:26 Intake Total 935 ml 764 ml 3593 ml Output Total 1300 ml 200 ml 2525 ml Balance -365 ml 564 ml 1068 ml Intake Oral 537 ml 300 ml 1287 ml IV Total 398 ml 464 ml 1696 ml Packed Cells 610 ml Output Urine Total 1300 ml 200 ml 2525 ml # Voids 2 # Bowel Movements 0 1 4 Exam General: Pale, slightly labored breathing but no acute distress HEENT: sclerae anicteric, oral mucosa dry Neck: Supple, no apparent JVD Chest: Coarse breath sounds, diminished on left. Cardiac: S1S2, regular, no murmur Abdomen: BS normal, non-tender Extremities: No pedal edema, no swelling Neuro: A&O, cranial nerves symmetric, motor strength 5-/5, coordination normal IVs and Medications Medications Reviewed: Medications were reviewed in detail Lab and Diagnostics Result Diagram: 01/23/1732401/23/17324 X-Rays, CTs and MRIs X-RAY CHEST ONE VIEW, PORTABLE IMPRESSION: Moderate sized left-sided pleural effusion. Increased left lung opacification which could represent compressive atelectasis versus pneumonia. Dictated by: Sarai Silva MD, PhD on 01/20/2017 at 12:11 Assessment & Plan #. Acute on Chronic Respiratory Failure, present on admission. Active and ongoing. Presented to ED for treatment of pleural effusion. Loculated effusion on the Left side with thick sample from thoracentesis, likely malignant exudative effusion. He has been on home O2 at 3L since 01/10/17. Considered for decortication but this procedure was canceled due to the rapid progression of his tumor and low likelihood of technical success. - On 4L currently. - IS and acapella ordered. - Plan supportive respiratory care, but no intubation. #. Respiratory failure Rule out pulmonary embolism. Recent history of DVT. CT angiogram was repeated on 01/22/17 showing no persistent pulmonary embolism. He was bridged from oral anticoagulation to heparin drip. In light of risk of GI bleeding Dr. Bob advises to discontinue anticoagulation at this point. - Discontinue heparin - He will not resume oral anticoagulation #. Recurrent severe left-sided malignant pleural effusion, POA and active. - VATS is canceled per Dr. Pamela Carter #. Probable Acute Blood loss Anemia, present on admission. Active and improved. Patient reports as scheduled transfusion this Friday01/22/17. Stool guaiac positive. Upper GI was negative. Received 1 unit PRBCs on 01/20 Combination of GI blood loss and chronic disease anemia - Continue to follow hemoglobin regularly. - Protonix stopped. #. Stage IV Pulmonary Adenocarcinoma, present on admission. Active. 12/24/2016 with progressive dyspnea. Had a therapeutic thoracentesis and had a bronchoscopy on 01/03/2017He was found to have multiple lung masses and large left pleural effusion, with marked progression since previous CT scan. Dr. Muna Bob will proceed with Palliative chemotherapy 01/23/17. Port placed in Left IJ. - Outpatient Med Onc notes in paper chart. - Transferred to [facility] for chemotherapy - Cancel hospice consult - Okay to proceed with palliative care consult to clarify goals of care #. Anxiety and pain, present on admission. The patient endorses very little pain and does not require morphine. He has dyspnea which is unlikely to be responsive to morphine. He does endorse anxiety and may need regular benzodiazepine including extra dose at nighttime for sleeping. - Minimize morphine use unless patient finds this clinically beneficial - Reduce lorazepam to 0.5 mg every 6 - Additional zolpidem at bedtime #. Peripheral Arterial Occlusive Disease, POA and stable. - Bilateral Femoral stents placed. - He may resume antiplatelet therapy when GI bleeding status seems stable #. Hypertension. POA and stable. - Has not taken home meds for 5 days. - Will continue home lisinopril when appropriate. #. Hyperlipidema. POA and stable - Has not taken home meds for 5 days. - Will continue home lisinopril when appropriate. #. History of DVT/PE. POA and active. 12/31/2016, was diagnosed with pulmonary embolism with a CT pulmonary angiogram; small clot. Also Thrombus in right IJ. He was started on apixaban in addition to his ASA, Clopidogrel. Guaiac positive melanotic stools upon presentation this time. -Discontinue PE heparin ggt. - Discontinue apixaban - Continue routine DVT prophylaxis dose enoxaparin #. Protein Calorie Malnutrition, present on admission. Active. - States 40 lb weight loss recently. - Albumin 2.7. - Dietary consult. Acetaminophen for mild pain when necessary. Bowel regimen Senna and MiraLAX scheduled and PRN. Zofran when necessary for nausea and vomiting. Patient Status: Disposition. Patient lives alone and is currently severely debilitated unlikely to be able to manage self-care. He wishes to continue with chemotherapy and will require SNF. VTE Mechanical Devices: Intermittant Pneumatic CD Resuscitation Status: CPR: Attempt Resuscitation Time spent 35 minutes Kt Encinas MD Jan 23, 2017 11:45 High-risk medications: IV Heparin drip Patient Status: Patient is admitted under inpatient status with expected length of stay greater than 2 midnights due to severity of presenting symptoms, risk of adverse event, and complexity of treatment plan. VTE Mechanical Devices: Intermittant Pneumatic CD Resuscitation Status: CPR: Attempt Resuscitation Kt Encinas MD Jan 23, 2017 11:45
--- NOTE | 2017-01-23 12:10 | NUR ---
Transfer Heparin drip was DC'd, tele was removed. Report was called to RN at [facility]. Pt transferred over with all personal belongings by staff members.
--- NOTE | 2017-01-23 12:49 | NUR ---
Palliative Care [employer] Note01/24/1712:20PM D: This singer songwriter and Palliative Care provider, Dr. Murphy, went to see pt., who has moved form [facility] to [facility] today in order to receive chemotherapy per Dr. Bob's recommendation. Pt. was awake and alert in bed at the time of visit. Conversation focused on the plan for pt. to have continued chemotherapy to see if it impacted his lung tumor growth. Per pt., Dr. Bob and he talked today and Dr. Bob believes additional chemotherapy may help pt. Pt. shared he wants to try this for a few weeks to see if it helps. He was able to share that he knows there are side effects of this treatment and he feels these side effects are worth the chance for the chemo to work. Pt. told this singer songwriter that his close friend, Kumar Hoang ([phone]), is his emergency contact. He noted that he and Kumar are not intimate partners, but have been close friends of many years (20+ years), and he wants Kumar to be his DPOA for healthcare. DPOA paperwork has not been completed at this time; pt. shared he plans to talk with Kumar soon about her serving as DPOA for him. Pt. identified another friend, Carlos Fontenot, who he also feels well supported by and who knows of his cancer diagnosis. Pt. stated that if his cancer does not improve in the coming weeks/months, he does not want to try heroic measures to stay alive. He shared that Kumar might struggle with this, but he thinks she will support his decisions around what he wants if his cancer treatment does not work. Pt. was asked where he would like to be when he discharges from [facility] and he expressed that he wants to be home if he can keep active and perform ADLs such as cleaning, laundry and cooking. He shared that if he isn't strong enough to do these sorts of activities he is open to being at a care facility such as a SNF in order to gain strength. He asked if insurance will pay for SNF care and this singer songwriter shared that [facility]'s case management department will talk with him about discharge options as he gets closer to being medically ready for discharge. This singer songwriter and Dr. Moffet told pt. that the Palliative Care team will follow along with his care at [facility], and that he might also be able to see a palliative care provider for outpatient support. Pt. seemed open to this idea. A: Pt. seems hopeful that additional chemotherapy might positively impact his cancer and he plans to try at least two more weeks of chemotherapy to see the results. He was able to identify two friends who are supporting him during this time. P: Palliative Care service will follow along during pt.'s hospitalization. Rosana Castellanos MSW, [facility] Palliative Care Services
--- NOTE | 2017-01-23 13:03 | PCM.CONPAL ---
Date of Service Jan 23, 2017 Date of Hospital Admission: Jan 20, 2017 at 14:11 Date of Palliative Consult: Jan 23, 2017 Requesting Provider: Muna Bob MD Comment: Currently managed by [facility] Hospitalist Team 01/23. Team to change 01/24 Reason Palliative Care Consult: Goals of Care Discussion Reason for Consultation Palliative Care received order from Dr Bob 01/22/17 to assist with goals of care. Patient readmitted 01/20/17. Hospital Unit @time of consult: Orthopedic/Surgical Care (room 1018) Palliative Care Recommendation Summary of palliative recommendations: -Symptom management (Pain/other): 1. Primary symptom/discomfort is dyspnea. Review of MAR shows pt used 4mg IV morphine with good effect in last 12 hours. Most recent dose at 2 a.m. this morning and he has needed no other dosing so far (currently 1pm) For now, I recommend prn IV morphine order to continue. He may benefit from Long acting oral morphine but we will monitor his IV morphine use for full 24 hours and then decide. Likely he could start tomorror on: Morphine LA 15mg po BID which is approximately equal to what he needed to get his dyspnea under control overnight. -DPOA/Advanced Directives/POLST: 1. Code status is DNR/DNI after discussion with his oncologist Dr. Bob last night. 2. He has no prior HCPOA paperwork, and in our meeting today he states he would want either friend (he lives in her house) Kumar Francois or friend ( from former workplace) Justin Fontenot to be his HCPOA. He wants to discuss this with them privately and make sure the one he picks would follow his instructions/wishes. 3. POLST: no prior paperwork. -Family/emotional support: limited. Justin Heath and a few friends from his former workplace. -Spiritual support: not explored today Patient Goals: Dr. Murphy and Rosana Rojas () of Palliative Care met with pt today. He is fully aware of his poor prognosis. He would like to continue palliative chemotherapy if there is hope of improvement in his cancer-related symptoms and prolonging survival. Per Dr. Bob, we do not know if chemotherapy has worked or not, as he just recently started it a week ago, and it is too soon to know. He would like to continue treatment if it is reasonable. Dr. Bob will offer Taxol infusion today and weekly, as tolerated. Dr. Bob writes in his note 01/23 that if pt decides to switch to comfort care in the setting of hospice, that would be very reasonable and acceptable. . 1. Patient wants to be told the truth about his/her illness, even if it is unpleasant. 2. He wants to try palliative chemotherapy, to see if it makes him feel any better. 3. He wants to try to go back home, rather than a SNF, if he is strong enough to do so. 4. He wants to be able to be at home, watch TV, do simple household tasks, "things that make him feel human." 5. If he can't get better with the chemotherapy, and he can't do these simple things in his home, he wants to "pull the plug." And he wants his substitute decision maker to understand that and not try to continue aggressive interventions to postpone his . Additional Medical Diagnoses with primary management by Hospitalist team include : #. Acute on Chronic Respiratory Failure, present on admission. Active and ongoing. Presented to ED for treatment of pleural effusion. Loculated effusion on the Left side with thick sample from thoracentesis, likely malignant exudative effusion. He has been on home O2 at 3L since 01/10/17. Considered for decortication but this procedure was canceled due to the rapid progression of his tumor and low likelihood of technical success. - On 4L currently. - IS and acapella ordered. - Plan supportive respiratory care, but no intubation. #. Respiratory failure Rule out pulmonary embolism. Recent history of DVT. CT angiogram was repeated on 01/22/17 showing no persistent pulmonary embolism. He was bridged from oral anticoagulation to heparin drip. In light of risk of GI bleeding, Dr. Bob recommends stopping heparin drip in the context of poor prognosis from advanced lung cancer, and continuing dual anti-platelet therapy , given his peripheral arterial disease and femoral artery stents #. Recurrent severe left-sided malignant pleural effusion, POA and active. - VATS (planned for 01/23) was canceled per Dr. Pamela Carter, after discussion with pt and Dr. Bob together. #. Probable Acute Blood loss Anemia, present on admission. Active and improved. Patient reports as scheduled transfusion this Friday01/22/17. Stool guaiac positive. Upper GI was negative. Received 1 unit PRBCs on 01/20 Combination of GI blood loss and chronic disease anemia - Continue to follow hemoglobin regularly. - Protonix stopped. #. Stage IV Pulmonary Adenocarcinoma, present on admission. Active. 12/24/2016 with progressive dyspnea. Had a therapeutic thoracentesis and had a bronchoscopy on 01/03/2017He was found to have multiple lung masses and large left pleural effusion, with marked progression since previous CT scan. Dr. Muna Bob will proceed with Palliative chemotherapy 01/23/17. Port placed in Left IJ. - Outpatient Med Onc notes in paper chart. - Transferred to [facility] for chemotherapy - Cancel hospice consult - Okay to proceed with palliative care consult to clarify goals of care #. Anxiety and pain, present on admission. The patient endorses very little pain and does not require morphine. He has dyspnea which is unlikely to be responsive to morphine. He does endorse anxiety and may need regular benzodiazepine including extra dose at nighttime for sleeping. - Minimize morphine use unless patient finds this clinically beneficial - Reduce lorazepam to 0.5 mg every 6 - Additional zolpidem at bedtime #. Peripheral Arterial Occlusive Disease, POA and stable. - Bilateral Femoral stents placed. - He may resume antiplatelet therapy when GI bleeding status seems stable #. Hypertension. POA and stable. - Has not taken home meds for 5 days. - Will continue home lisinopril when appropriate. #. Hyperlipidema. POA and stable - Has not taken home meds for 5 days. - Will continue home lisinopril when appropriate. #. History of DVT/PE. POA and active. 12/31/2016, was diagnosed with pulmonary embolism with a CT pulmonary angiogram; small clot. Also Thrombus in right IJ. He was started on apixaban in addition to his ASA, Clopidogrel. Guaiac positive melanotic stools upon presentation this time. -Discontinue PE heparin ggt. - Discontinue apixaban - Continue routine DVT prophylaxis dose enoxaparin #. Protein Calorie Malnutrition, present on admission. Active. - States 40 lb weight loss recently. - Albumin 2.7. - Dietary consult. Problems: Resuscitation Status Resuscitation Status: DNR/DNI:Do Not Resuscitate/Intubate . Advanced Care Planning Address: Code status change Pt History History of Present Illness Mr. Otis Gonzalez is a 61 year old gentleman with a past medical history of Hypertension, hyperlipidemia peripheral vascular disease, DVT and recent PE with new diagnosis of Stage IV adenocarcinoma of the lung who presents to the ED from ultrasound. US states pt needs thoracentesis but needs chest tubes due to thick nature of fluid. His only complaint is increasing shortness of breath, cough with thick sputum, dyspnea on exertion and anxiety. He reports sleepless nights and decreased PO intake due to dry heaves 2nd to thick sputum. He has not taken medications for 5 days. He is on 3 L of O2 at home. He denies fever, chills, chest pain, or any other symptoms. He had a thoracentesis 2 weeks ago. His last chest X-ray was 8-9 days ago. Of note: Patient has no next of kin and very limited social support. In the ED patients vitals were as follows: T-?, HR - 110, RR - 29, BP 111/93, 96 % on 3.5 L NC. Patient received PPI push 80mg, 1 L NS. Notable Labs: WBC 13.3 N89%, Hgb 7.3, Albumin 2.7, Past Medical History Significant PMH Noted: Hypertension Hyperlipidemia Peripheral vascular disease depression anxiety lung cancer Surgical History Multiple stents for peripheral vascular disease iliac artery surgery Reports: Cataract surgery Family History Unknown, left home at 12 years old with no known next of kin. Social History Hx Alcohol Use: No Hx Substance Use: No Hx Tobacco Use: Yes Smoking Status: Former Smoker Lives in home of Kumar Francois, a friend. Until he became ill, he worked for a [employer]. Allergy Allergies Reviewed: Yes Medications Current Medications: Current Medications Lorazepam 1 mg Q4H PRN IVPUSH Last administered on 01/22/17 19:24; Admin Dose 1 MG; Start 01/21/17 at 19:05; Stop 01/23/17 at 10:49; Status DC Zolpidem Tartrate 10 mg HS PRN PO Last administered on 01/22/17 20:34; Admin Dose 10 MG; Start 01/21/17 at 16:15 Heparin Sodium (Porcine) Per Protocol for a... PRN PRN IVPUSH Last administered on 01/21/17 23:34; Admin Dose 1,700 UNIT; Start 01/21/17 at 16:15; Stop 01/23/17 at 10:49; Status DC Lactated Ringer's 1,000 ml @ 120 mls/hr Q8H20M IV; Start 01/23/17 at 05:00; Stop 01/23/17 at 05:00; Status DC Morphine Sulfate 2 mg Q2 PRN IV; Start 01/22/17 at 15:05; Stop 01/22/17 at 16:29 ; Status DC Morphine Sulfate 4 mg Q4H PRN IVPUSH Last administered on 01/23/17t 01:53; Admin Dose 4 MG; Start 01/22/17 at 16:30 Lorazepam 0.5 mg Q6 PRN IVPUSH; Start 01/23/17 at 14:30 Scheduled Apixaban (Eliquis) 5 Mg Tablet 5 MG PO BID Aspirin (Aspirin) 81 Mg Tablet 81 MG PO DAILY Atorvastatin (Lipitor) 20 Mg Tablet 20 MG PO HS Clopidogrel (Clopidogrel) 75 Mg Tablet 75 MG PO DAILY Lisinopril (Lisinopril) 5 Mg Tablet 5 MG PO DAILY Scheduled PRN Lorazepam (Ativan) 0.5 Mg Tablet 0.5 MG PO BID PRN PRN For Anxiety Ondansetron (Ondansetron) 8 Mg Tablet 8 MG PO BID PRN PRN For Nausea Zolpidem (Zolpidem) 5 Mg Tablet 5 MG PO HS PRN PRN For Sleep Objective Findings Exam Vital Sign - Last Date Time Temp Pulse Resp B/P Pulse Ox O2 Delivery O2 Flow Rate FiO2 01/23/17 10:16 99 01/23/17 08:30 36.8 22 116/78 98 Nasal Cannula 4.00 Intake and Output 01/22/17 01/22/17 01/23/17 Cumulative From/Thru 15:00 23:00 07:00 01/20/17 11:38 - 01/23/17 06:26 Intake Total 935 ml 764 ml 3593 ml Output Total 1300 ml 200 ml 2525 ml Balance -365 ml 564 ml 1068 ml Intake Oral 537 ml 300 ml 1287 ml IV Total 398 ml 464 ml 1696 ml Packed Cells 610 ml Output Urine Total 1300 ml 200 ml 2525 ml # Voids 2 # Bowel Movements 0 1 4 Objective General: Very Pale, middle aged man lying stiffly in bed, eating ice chips. HEENT: normal head/neck/face, EOMI, sclerae anicteric, oral mucosa dry Neck: Supple, no JVD Chest: Coarse breath sounds, diminished on left,slightly labored breathing Cardiac: S1S2, regular, no murmur Abdomen: BS normal, soft, non-tender Extremities: No pedal edema, no swelling Neuro: A&O x4 with insight, cranial nerves symmetric, coordination normal, speech clear IVs and Medications Medications Reviewed: Medications were reviewed in detail Lab and Diagnostics Result Diagram: 01/23/17 0325 01/23/17 0325 Lab/Diagnostics CXR - From Radiologist - Moderate sized left-sided pleural effusion. Increased left lung opacification which could represent compressive atelectasis versus pneumonia. CT chest angiogram 01/22: showed resolution of his single small pulmonary embolus. Time spent Total time 70 minutes; >50% face to face with patient and/or family, providing counselling regarding plans and recommendations, and in care coordination with his/her medical teams. Elida Murphy MD Jan 23, 2017 13:03
[2017-01-23] MEDS ORDERED: Ondansetron 2 mg/mL 2 mL Inj IVPUSH ONE ×2 (15:00→16:30)
[2017-01-23] MEDS ORDERED: Dexamethasone 10 mg/50 mL NS IV ONE ×4 (15:00→16:30)
[2017-01-23] MEDS ORDERED: Famotidine 20 mg/50 mL NS Premix IV ONE ×2 (15:00→16:30)
[2017-01-23] MEDS ORDERED: DEXTROSE 5% IV ONE ×2 (15:30→17:00)
[2017-01-23] MEDS ORDERED: PACLITAXEL IV ONE ×2 (15:30→17:00)
[2017-01-23] MEDS ORDERED: [UNRECOGNIZED DRUG - OTHER] XX ONE (15:30)
[2017-01-23 18:36] LABS: BASOPHILS % (AUTO) 0.2 % (0-3); EOSINOPHILS % (AUTO) 2.7 % (0-5); MONOCYTES % (AUTO) 12.8 % (4-12)
[2017-01-23] MEDS: 0.9% Sodium Chloride 250 ML IV SCH (20:36)
[2017-01-24 00:08] VITALS: BP 110/74; PULSE 95; RESP 22; O2SAT 97
--- NOTE | 2017-01-24 04:19 | NUR ---
Chemo/Anxiety/Room Change Chemo hung on day shift. Completed around 1949. No a/e noted, tolerated well. Brisk blood return from port upon completion. Patient making multiple complaints of feeling claustrophobic in room 1018. Increase in anxiety and restlessness noted. Moved patient to room 1026. States new room is much better- seeing the foot traffic and hearing voices outside of his room has been very helpful.
[2017-01-24 05:05] VITALS: BP 101/66; PULSE 99; RESP 21; O2SAT 96
--- NOTE | 2017-01-24 10:16 | PCM.PALLBR ---
Palliative Care Recommendation Summary of palliative recommendations: -Symptom management (Pain/other): 1. Primary symptom/discomfort is dyspnea. Review of MAR shows pt used 4mg IV morphine once in last 24hours, at 9 a.m. yesterday 01/23. D/C IV morphine and start oral MSIR 15mg po q 4 hours prn dyspnea/pain. 2. Anxiety/restlessness D/C IV ativan and start oral ativan 0.5mg po q 6 hours prn anxiety/ restlessness. -DPOA/Advanced Directives/POLST: 1. Code status is DNR/DNI after discussion with his oncologist Dr. Bob last night. 2. He has no prior HCPOA paperwork, and in our meeting today he states he would want either friend (he lives in her house) Kumar Francois or friend ( from former workplace) Justin Fontenot to be his HCPOA. He wants to discuss this with them privately and make sure the one he picks would follow his instructions/wishes. 3. POLST: no prior paperwork. -Family/emotional support: limited. Justin Heath and a few friends from his former workplace. -Spiritual support: not explored today Patient Goals: Dr. Murphy and Rosana Rojas () of Palliative Care met with pt 01/23. He is fully aware of his poor prognosis. He would like to continue palliative chemotherapy if there is hope of improvement in his cancer-related symptoms and prolonging survival. Per Dr. Bob, we do not know if chemotherapy has worked or not, as he just recently started it a week ago, and it is too soon to know. He would like to continue treatment if it is reasonable. Dr. Bob will offer Taxol infusion today and weekly, as tolerated. Dr. Bob writes in his note 01/23 that if pt decides to switch to comfort care in the setting of hospice, that would be very reasonable and acceptable. . 1. Patient wants to be told the truth about his/her illness, even if it is unpleasant. 2. He wants to try palliative chemotherapy, to see if it makes him feel any better. 3. He wants to try to go back home, rather than a SNF, if he is strong enough to do so. 4. He wants to be able to be at home, watch TV, do simple household tasks, "things that make him feel human." 5. If he can't get better with the chemotherapy, and he can't do these simple things in his home, he wants to "pull the plug." And he wants his substitute decision maker to understand that and not try to continue aggressive interventions to postpone his . He wants an opportunity to discuss all this with his friends Kumar and Justin, so he can decide who to pick as his HCPOA. Palliative Care will sign off Mr. Gonzalez's case today as his goals are clear, he wishes to arrange his HCPOA on his own timeframe without our assistance. If he declines and needs help with symptom control or hospice discussions, please re-contact us. Thank you. Problems: Resuscitation Status Resuscitation Status: DNR/DNI:Do Not Resuscitate/Intubate Total time 15 minutes; >50% face to face with patient and/or family, providing counselling regarding plans and recommendations, and in care coordination with his/her medical teams. Palliative Brief Note Date of Service Jan 24, 2017 . Patient Identification: Mr. Otis Gonzalez is a 61 year old gentleman with a past medical history of Hypertension, hyperlipidemia peripheral vascular disease, DVT and recent PE with new diagnosis of Stage IV adenocarcinoma of the lung who presents to the ED from ultrasound. US states pt needs thoracentesis but needs chest tubes due to thick nature of fluid. His only complaint is increasing shortness of breath, cough with thick sputum, dyspnea on exertion and anxiety. He reports sleepless nights and decreased PO intake due to dry heaves 2nd to thick sputum. He has not taken medications for 5 days. He is on 3 L of O2 at home. He denies fever, chills, chest pain, or any other symptoms. He had a thoracentesis 2 weeks ago. His last chest X-ray was 8-9 days ago. Of note: Patient has no next of kin and very limited social support. Hospital Course: He was admitted 01/20 to treat his dyspnea and evaluate for a thoracentesis. On 01/22, Dr. Marielena Carter saw pt with Dr. Bob on 01/22 and explained that they no longer think that VATS procedure would benefit him. Dr. Bob offered more palliative chemotherapy and pt wants to try this. Pt met with Palliative Care on 01/23 and expressed his preference to continue with palliative chemotherapy and go home with home health if he is strong enough, or go to rehab for strengthening at a SNF if he is not. The patient was willing to change his code status from FULL to DNR/DNI after his discussion with Dr. Bob and Dr. Carter. Elida Murphy MD Jan 24, 2017 10:16 pain and does not require morphine. He has dyspnea which is unlikely to be responsive to morphine. He does endorse anxiety and may need regular benzodiazepine including extra dose at nighttime for sleeping. - Minimize morphine use unless patient finds this clinically beneficial - Reduce lorazepam to 0.5 mg every 6 - Additional zolpidem at bedtime #. Peripheral Arterial Occlusive Disease, POA and stable. - Bilateral Femoral stents placed. - He may resume antiplatelet therapy when GI bleeding status seems stable #. Hypertension. POA and stable. - Has not taken home meds for 5 days. - Will continue home lisinopril when appropriate. #. Hyperlipidema. POA and stable - Has not taken home meds for 5 days. - Will continue home lisinopril when appropriate. #. History of DVT/PE. POA and active. 12/31/2016, was diagnosed with pulmonary embolism with a CT pulmonary angiogram; small clot. Also Thrombus in right IJ. He was started on apixaban in addition to his ASA, Clopidogrel. Guaiac positive melanotic stools upon presentation this time. -Discontinue PE heparin ggt. - Discontinue apixaban - Continue routine DVT prophylaxis dose enoxaparin #. Protein Calorie Malnutrition, present on admission. Active. - States 40 lb weight loss recently. - Albumin 2.7. - Dietary consult. Problems: Resuscitation Status Resuscitation Status: DNR/DNI:Do Not Resuscitate/Intubate Total time [ ] minutes; >50% face to face with patient and/or family, providing counselling regarding plans and recommendations, and in care coordination with his/her medical teams. I also spent an additional [ ] minutes counseling for advanced care planning with the patient/the patients family/the surrogate decision maker. Palliative Brief Note Date of Service Jan 24, 2017 . Patient Identification: Mr. Otis Gonzalez is a 61 year old gentleman with a past medical history of Hypertension, hyperlipidemia peripheral vascular disease, DVT and recent PE with new diagnosis of Stage IV adenocarcinoma of the lung who presents to the ED from ultrasound. US states pt needs thoracentesis but needs chest tubes due to thick nature of fluid. His only complaint is increasing shortness of breath, cough with thick sputum, dyspnea on exertion and anxiety. He reports sleepless nights and decreased PO intake due to dry heaves 2nd to thick sputum. He has not taken medications for 5 days. He is on 3 L of O2 at home. He denies fever, chills, chest pain, or any other symptoms. He had a thoracentesis 2 weeks ago. His last chest X-ray was 8-9 days ago. Of note: Patient has no next of kin and very limited social support. Hospital Course: He was admitted 01/20 to treat his dyspnea and evaluate for a thoracentesis. On 01/22, Dr. Marielena Carter saw pt with Dr. Bob on 01/22 and explained that they no longer think that VATS procedure would benefit him. Dr. Bob offered more palliative chemotherapy and pt wants to try this. Pt met with Palliative Care on 01/23 and expressed his preference to continue with palliative chemotherapy and go home with home health if he is strong enough, or go to rehab for strengthening at a SNF if he is not. The patient was willing to change his code status from FULL to DNR/DNI after his discussion with Dr. Bob and Dr. Carter. Exam General: Very Pale, middle aged man lying stiffly in bed, eating ice chips. HEENT: normal head/neck/face, EOMI, sclerae anicteric, oral mucosa dry Neck: Supple, no JVD Chest: Coarse breath sounds, diminished on left,slightly labored breathing Cardiac: S1S2, regular, no murmur Abdomen: BS normal, soft, non-tender Extremities: No pedal edema, no swelling Neuro: A&O x4 with insight, cranial nerves symmetric, coordination normal, speech clear Elida Murphy MD Jan 24, 2017 10:16
[2017-01-24 11:38] VITALS: BP 105/69; PULSE 98; RESP 20; O2SAT 98
[2017-01-24] MEDS: LORazepam 0.5 mg Tablet PO PRN ×2 (11:49→18:06)
--- NOTE | 2017-01-24 12:53 | NUR ---
NUTRITION FOLLOW-UP: ASSESS: Pt is a 61yo M admitted for anemia and pleural effusion. Pt has history of stage IV lung ca. He reported ~ 40lb wt loss x 6 months. Pt reported that his UBW is ~84kg (185lbs)= 19% wt loss x6 months-severe wt loss. Pt reported that his appetite is decreased and that he isn't hungry for large amounts of food. He doesn't cook much and will either eat at a restaurant or do a tv dinner. Pt does not like Ensure but reported that he is going to start drinking one at home and mix it with ice cream. PO during admit has been variable from 0-100%. Palliative care was involved for goals of care. Currently undergoing palliative chemo. Oncology is following. PMHX: HTN, HLD, PVD, Depression, lung ca LABS: Reviewed. (01/23) Cl 95, CO2 30, state patrol officer .55, Glu 114, Ca 8.1 MEDS: Reviewed. senna GI: BMx2 01/21 SKIN: No major issues CURRENT WTS: 67.3kg, BMI 22.6kg/m2, IBW: 70kg, UBW: 84kg, ~19% wt loss x6 months DIET: General, PO 0-100% EST. NEEDS: ca, wt loss Kcals: 2020-2355kcal/day (30-35kcal/kg) Pro: 70-100g/day (1.0-1.5g/kg) NUTRITION DIAGNOSIS: 1.) Moderate pro/kcal malnutrition in the context of chronic illness related to lung ca as evidence by 19% wt loss x6 months, poor PO intake of <75% estimated energy requirements for >1 month and diagnosis of lung ca. NUTRITION INTERVENTION: 1.) On 01/21, RD provided high kcal/pro nutrition therapy handout. Discussed eating smaller more frequent meals (~6 meals/day) rather than 3 and trying to eat higher kcal/pro foods. Pt agreed to try this once he gets home. He does not like Ensure and does not want to get one here at the hospital but reported that he will drink one/day after he is discharged. 2.) At this time pt does not want snacks/supps. Will continue to monitor PO intake/wt. If PO intake continues to be poor, will re-address w/pt. 3.) Will monitor for new wt to monitor wt trends. Last wt recorded was 01/21 4.) Oncology RD will continue to monitor pt through [facility] MONITOR / EVAL: PO, wt, GI, labs, POC, nutrition status. Will continue to monitor per high nutrition risk guidelines
--- NOTE | 2017-01-24 15:24 | NUR ---
Evaluation completed. Please go to "Notes" then click on "Assessments and Notes" (bottom left corner of screen). Then select appropriate discipline tab on top of screen.
--- NOTE | 2017-01-24 15:38 | NUR ---
Activity/SOB Ambulated in halls with PT. Uses call light prior to getting OOB. Reports relief of SOB with morphine.
--- NOTE | 2017-01-24 15:48 | PCM.PNMED ---
Subjective Date of Service Jan 24, 2017 Subjective Denies any new issues/complaints. Says overall feeling better than past couple of days. Exam Vital Signs Vital Sign - Last Date Time Temp Pulse Resp B/P Pulse Ox O2 Delivery O2 Flow Rate FiO2 01/24/17 11:38 36.8 98 20 105/69 98 Nasal Cannula 4.00 Intake and Output 01/23/17 01/23/17 01/24/17 Cumulative From/Thru 15:00 23:00 07:00 01/20/17 11:38 - 01/24/17 05:05 Intake Total 261 ml 1465 ml 783 ml 6102 ml Output Total 300 ml 2825 ml Balance 261 ml 1465 ml 483 ml 3277 ml Intake Oral 520 ml 1807 ml IV Total 261 ml 1165 ml 263 ml 3385 ml Packed Cells 300 ml 910 ml Output Urine Total 300 ml 2825 ml # Voids 2 # Bowel Movements 4 General: Alert, Oriented X3, Cooperative, No Acute Distress Head: Normal Eyes: Scleral Anicteric Nose: Mucous Membr Moist/[place] Mouth: Mucous Membr Moist/[place] Neck: Supple Chest & Lungs: Chest Wall Normal, Expiratory wheezes (bilat) Cardiovascular: Regular Rate/Rhythm Pulses: NL carotid, radial, femoral, DP, PT Abdomen: Non-tender, Non-distended, Normoactive bowel tones, Soft Extremities: No cyanosis/clubbing/edma bilat Neurological: Grossly Neurologically Intact, Normal Speech IVs and Medications Medications Reviewed: Medications were reviewed in detail Lab and Diagnostics Result Diagram: 01/23/17 0325 01/23/17 0325 X-Rays, CTs and MRIs X-RAY CHEST ONE VIEW, PORTABLE IMPRESSION: Moderate sized left-sided pleural effusion. Increased left lung opacification which could represent compressive atelectasis versus pneumonia. Dictated by: Sarai Silva MD, PhD on 01/20/2017 at 12:11 Assessment & Plan 61 year old male with a hx of HTN, hyperlipidemia, peripheral vascular disease, and lung cancer who presents to the ED from ultrasound for a palliative thoracentesis and chest tube due to thick nature of fluid # Acute on Chronic Respiratory Failure, present on admission. Active and ongoing. - Presented to ED for treatment of pleural effusion. - Loculated effusion on the Left side with thick sample from thoracentesis, likely malignant exudative effusion. - He has been on home O2 at 3L since 01/10/17. - Appreciate surgery and oncology consults. Will followup with recs - Considered for decortication but this procedure was canceled due to the rapid progression of his tumor and low likelihood of technical success. - IS and acapella ordered. - Plan supportive respiratory care, but no intubation. # Acute on chronic respiratory failure - Recent history of DVT. - CT angiogram was repeated on 01/22/17 showing no persistent pulmonary embolism. - He was bridged from oral anticoagulation to heparin drip. In light of risk of GI bleeding Dr. Bob advises to discontinue anticoagulation at this point. - He will not resume oral anticoagulation - Continue with ASA + Plavix # Recurrent severe left-sided malignant pleural effusion, POA and active. - VATS is canceled per Dr. Pamela Carter # Probable Acute Blood loss Anemia, present on admission. Active and improved. - Stool guaiac positive. - Upper GI was negative. - Received 1 unit PRBCs on 01/20 - Combination of GI blood loss and chronic disease anemia # Stage IV Pulmonary Adenocarcinoma, present on admission. Active. - Had a therapeutic thoracentesis and had a bronchoscopy on 01/03/2017 - Dr. Muna Bob will proceed with Palliative chemotherapy 01/23/17. Port placed in Left IJ. - Cancel hospice consult # Anxiety and pain, present on admission. - Appreciate palliative care consult. Will followup with recs. - Morphine, Lorazepam, Zolpidem prn # Peripheral Arterial Occlusive Disease, POA and stable. - Bilateral Femoral stents placed. - He may resume antiplatelet therapy when GI bleeding status seems stable # Hypertension. POA and stable. - Will continue home lisinopril when appropriate. Continue to hold for now # Hyperlipidema. POA and stable - Has not taken home meds for 5 days. - Hold statin for now but likely resume on discharge # History of DVT/PE. POA and active. 12/31/2016, was diagnosed with pulmonary embolism with a CT pulmonary angiogram; small clot. Also Thrombus in right IJ. He was started on apixaban in addition to his ASA, Clopidogrel. Guaiac positive melanotic stools upon presentation this time. - Discontinue PE heparin ggt. - Discontinue apixaban - Continue routine DVT prophylaxis dose enoxaparin # Protein Calorie Malnutrition, present on admission. Active. - States 40 lb weight loss recently. - Albumin 2.7. - Dietary consult. Dispo: Home with home health vs SNF in 1-2 days VTE Mechanical Devices: Intermittant Pneumatic CD Resuscitation Status: DNR/DNI:Do Not Resuscitate/Intubate Rex Watson Jan 24, 2017 15:48
--- NOTE | 2017-01-24 17:46 | PROG NOTE ---
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 SUBJECTIVE: Today he feels quite better. He has walked in hallways with physical therapist and reports improved appetite. Morphine helps his pain and dyspnea. OBJECTIVE: Looks quite better than yesterday. Awake, alert, oriented x3. Appears less dyspneic. Vital signs all normal. Heart rate in 90s and O2 saturation 98% on 4 L. IMPRESSION AND RECOMMENDATIONS: 1. Stage IV pulmonary adenocarcinoma, on palliative chemotherapy. Dyspnea has improved. He is ready for discharge and wishes to be discharged tomorrow. We are waiting for physical therapy assessment to make sure he is safe to be discharged home. He has an appointment with us on Friday, January 29 for cycle one, day 15 Taxol infusion. 2. Recent pulmonary embolism, extensive right internal jugular (IJ) thrombosis, and peripheral arterial disease involving bilateral lower extremities. We discussed his anticoagulation and antiplatelet therapy today and decided to resume apixaban at half dose 2.5 mg b.i.d. and aspirin 81 mg daily. He does have these medications at home.
--- NOTE | 2017-01-24 17:52 | NUR ---
Social Work: Readiness for Discharge/Multidisciplinary Rounds D: EMR reviewed. Pt is on day 4 of hospitalization. SW received MD order for SNF or HH based on PT recommendations. Per PT, pt would like to return home with HH rather than go to a SNF, if possible. Pt willing to do whatever is recommended. PT recommends HH PT 2-3x/wk for 2-3 weeks. Pt discussed in multidisciplinary rounds, pt to have scheduled Vascular outpt surgery. SW received T/C from Dr. Cardenas requesting SW schedule outpt surgery in [place]. SW left voicemail stating that SW doesn't normally schedule these types of surgery and requested more information. SW notified [facility]A for assistance - [facility]A contacted [facility] in [place] who stated MD will need to send referral for outpt surgery - this is not to be completed by SW. SW will follow-up with HH order from MD and provide choice list. A: Pt who is independent at baseline. Pt for whom HH PT 2-3x/week recommended. P: SW to follow-up during multidisciplinary rounds regarding specified MD order for HH HH PT 2-3x/week for 2-3 weeks as recommended by PT. SW to follow-up with pt and provide choice list and make HH referral based on choice. DUANE Andujar
--- NOTE | 2017-01-24 19:21 | PCM.ADCARE ---
Advance Care Planning Note Purpose of Encounter: Goals of care regarding Stage IV Pulmonary Adenocarcinoma Parties in Attendance: Patient Decisional Capacity: Decisional Subjective: Says breathing much improved Objective: NAD CV: RRR Goals of Care Determinations: Patient wishes to be DNR/DNI but wants to pursue palliative chemo. He hopes to go home and wants to avoid going to SNF Plan: Likely home with home health in AM with plan to followup with oncology mid next week CODE STATUS: DNR/DNI Time Spent Adv.Care Plannin min Rex Watson Jan 24, 2017 19:21
[2017-01-24] MEDS: 0.9% Sodium Chloride 250 ML IV SCH (20:20)
[2017-01-24 22:06] VITALS: BP 115/73; PULSE 100; RESP 16; O2SAT 85
[2017-01-25] MEDS: LORazepam 0.5 mg Tablet PO PRN ×2 (01:31→09:47)
--- NOTE | 2017-01-25 06:06 | NUR ---
SOB/anxiety Pt has SOB at rest and increased productive cough. Rec'd tessalon pearle per request. Pt taking PRN morphine every 4hrs for his breathing with + effects. No s/sx of anxiety this shift, Pt rec'd PRN ativan as requested every 6hrs. IV fluids running TKO through port, Pt slept well. Continues to state he wants to "check out early" today. Reminded the MD will be in to see him and write the d/c orders and he will be able to leave at that time. He is agreeable but has required reminders throughout the night. Care continues
[2017-01-25 06:41] VITALS: BP 122/72; PULSE 56; RESP 18; O2SAT 88
[2017-01-25] MEDS ORDERED: BENZ100C8 PO (10:50)
[2017-01-25] MEDS ORDERED: APIX2.5T PO (10:50)
[2017-01-25] MEDS ORDERED: MORP15TA PO (10:50)
[2017-01-25] MEDS ORDERED: ZOLP5TAB6 PO (10:50)
[2017-01-25] MEDS ORDERED: LORA-302 PO (10:50)
--- NOTE | 2017-01-25 10:56 | PCM.DIMED ---
Discharge Instructions Date of Service Jan 25, 2017 Dates of Hospitalization Jan 20, 2017 at 14:11 Discharge Diagnosis Discharge Diagnosis # Acute on chronic hypoxic respiratory failure, present on admission. Improved. - Loculated effusion on the Left side with thick sample from thoracentesis, likely malignant exudative effusion. # Recurrent severe left-sided malignant pleural effusion, present on admission. # Probable Acute Blood loss Anemia, present on admission. Stable - Stool guaiac positive. - Post 1 unit PRBC transfusion on 01/20/17 # Stage IV Pulmonary Adenocarcinoma, present on admission. Active. - Post therapeutic thoracentesis and bronchoscopy on 01/03/2017 # Anxiety and pain, present on admission. # Peripheral Arterial Occlusive Disease, present on admission and presumed stable. - History of bilateral femoral stents # History of hypertension. Stable off of blood pressure medications. # History of hyperlipidema. # History of DVT/PE. # Protein Calorie Malnutrition, present on admission. Active. Diet Discharge Diet: Heart Healthy Activity Discharge Activity: Other (as tolerated ) Call your provider Call your provider for: Fever or Chills, Shortness of breath, Bleeding, Chest pain, Excessive diarrhea Patient Instructions Patient Instructions Seek immediate medical attention if any new or worsening signs or symptoms occur. Follow-up plan 1. Followup with oncology (Dr. Bob) this coming week as already scheduled. Follow-up Provider: Muna Bob MD, Masoud Jan 25, 2017 10:56
--- NOTE | 2017-01-25 13:00 | NUR ---
Social Work: Readiness for Discharge/Multidisciplinary Rounds D: EMR reviewed. Pt is on day 5 of hospitalization. TYRONE received MD order for HH. TYRONE provided HH choice list to pt. Pt chose [facility]. TYRONE made referral to Roland at [facility] and provided access. Roland notified of pt's discharge today. Roland also notified of pt's current phone, address, and that pt has scheduled chemo on Friday. TYRONE to fax F2F to [facility] once completed by MD. notified of need to complete F2F for pt's discharge. Roland confirmed that [facility] will open with pt for HH PT 2-3x/week and BUSINESS ADMINISTRATION INSTRUCTOR 2-3x/week on Friday. Pt requested private-pay taxi and confirmed he would need to stop at [facility] to retrieve controlled rx and then home. TYRONE confirmed [facility] will transport pt to [facility] and then home at 1330 today. TYRONE informed RN that pt will need to be waiting for pick-up at the main entrance next to the ER. RN confirmed and MARKETING INFORMATION COORDINATOR will wheel pt to pick-up area. Pt informed of transport time and HH plan. Pt agreeable to discharge plan. No other SW needs identified. No other MD orders received. A: Pt for whom HH PT BUSINESS ADMINISTRATION INSTRUCTOR is medically necessary. P: Pt to discharge via [facility] at 1330 today. Pt to stop at [facility] to retrieve controlled rx and then [facility] confirmed they will wait for pt at [facility] and provide transport home. TYRONE confirmed pt's address and phone number with both [facility] and [facility]. No other SW needs identified. TYRONE will follow until pt is discharged. DUANE Andujar
--- NOTE | 2017-01-25 14:17 | NUR ---
Social Work: Discharge D: EMR reviewed. Pt is on day 5 of hospitalization. Roland confirmed that [facility] will open with pt for HH PT 2-3x/week and REGISTRY NURSE 2-3x/week on Friday. Pt requested private-pay taxi and confirmed he would need to stop at [facility] to retrieve controlled rx and then home. TYRONE confirmed [facility] will transport pt to [place] and then home at 1330 today. Pt informed of transport time and HH plan. Pt agreeable to discharge plan. No other SW needs identified. No other MD orders received. A: Pt for whom HH PT REGISTRY NURSE is medically necessary. P: Pt discharged via [facility] taxi at 1330 today. Pt to stop at [place] to retrieve controlled rx and then [facility] confirmed they will wait for pt at [place] and provide transport home. TYRONE confirmed pt's address and phone number with both [facility] and [facility] . No other SW needs identified. DUANE Andujar Addendum: 01/25/17 at 1503 by ROXANNE BARNHART [facility] faxed F2F and confirmed [facility] received fax. DUANE Andujar
--- NOTE | 2017-01-25 14:23 | NUR ---
Discharge Pt. was given discharge instructions; verbalized understanding. Prescriptions given. Brayan-cath de-accessed by [facility] IV therapy. Home Health set up by FREEDOM OF INFORMATION OFFICER. Pt. connected to home oxygen tank. Peripheral IV site discontinued, intact. Pt. to follow up with Dr. Tipton within a week post discharge. Pt. taken off unit via w/c by staff member. Called in cab service picked up pt. at 1330.
--- NOTE | 2017-01-25 18:10 | PCM.DC.MED ---
Discharge Summary Date of Service Jan 25, 2017 Dates of Hospitalization Date of Hospital Admission Jan 20, 2017 at 14:11 Date of Discharge: Jan 25, 2017 Providers: Admitting Physician: Prasad Carter MD Primary Care Physician: Nopjaswinder Attending Physician: Rex Prado Diagnosis at Time of Discharge Diagnosis at Time of Discharge # Acute on chronic hypoxic respiratory failure, present on admission. Improved. - Loculated effusion on the Left side with thick sample from thoracentesis, likely malignant exudative effusion. # Recurrent severe left-sided malignant pleural effusion, present on admission. # Probable Acute Blood loss Anemia, present on admission. Stable - Stool guaiac positive. - Post 1 unit PRBC transfusion on 01/20/17 # Stage IV Pulmonary Adenocarcinoma, present on admission. Active. - Post therapeutic thoracentesis and bronchoscopy on 01/03/2017 # Anxiety and pain, present on admission. # Peripheral Arterial Occlusive Disease, present on admission and presumed stable. - History of bilateral femoral stents # History of hypertension. Stable off of blood pressure medications. # History of hyperlipidema. # History of DVT/PE. # Protein Calorie Malnutrition, present on admission. Active. Consultations 1. GI 2. General surgery 3. Oncology 4. Palliative care Procedures XRay, CTs & MRIs X-RAY CHEST ONE VIEW, PORTABLE IMPRESSION: Moderate sized left-sided pleural effusion. Increased left lung opacification which could represent compressive atelectasis versus pneumonia. Dictated by: Sarai Silva MD, PhD on 01/20/2017 at 12:11 Date of Service: 01/22/17 0700 PROCEDURE: CT ANGIO CHEST PULMONARY EMBOLISM ([id number]) IMPRESSION: Resolution of a single small right lower lung pulmonary embolus, no new emboli are seen, but there has been a mild interval worsening of extensive metastatic disease previously present in terms of increased pleural effusion, now present also on the right, and slowly enlarging mediastinal and hilar adenopathy with mild increased constriction of the central bronchi on the left. Dictated by: Deon Flores M.D. on 01/22/2017 at 9:29 Approved by: Deon Flores M.D. on 01/22/2017 at 10:07 ADDENDUM This report includes an Addendum and supersedes previous reports for this exam. ADDENDUM: The worsening metastatic disease was discussed in detail with Dr. Bob and is comprised of a pattern of increased adenopathy in the mediastinum and hilar regions, increased airspace infiltration potentially representing diffuse lymphangitic spread of malignancy, and increasing/new pleural effusions. Overall the progression of disease is significant from the comparison study performed only slightly over 3 weeks ago. Dictated by: Deon Flores M.D. on 01/22/2017 at 17:04 Approved by: eDon Flores M.D. on 01/22/2017 at 17:07 Report status: Addendum REPORT#: [id number] Invasive Procedures DATE OF SERVICE: 01/21/2017 TYPE OF OPERATION: Esophagogastroduodenoscopy. POSTOPERATIVE DIAGNOSIS(ES): Normal upper endoscopy. IMPRESSIONS: Normal upper endoscopy. RECOMMENDATIONS: Okay to start clear liquid diet. Recommendations per GI consultation team. Anurag Warren MD 01/21/17 1222 Brief History As noted in H&P by Dr. Ching: Mr. Otis Gonzalez is a 61 year old gentleman with a past medical history of Hypertension, hyperlipidemia peripheral vascular disease, DVT and recent PE with new diagnosis of Stage IV adenocarcinoma of the lung who presents to the ED from ultrasound. US states pt needs thoracentesis but needs chest tubes due to thick nature of fluid. His only complaint is increasing shortness of breath, cough with thick sputum, dyspnea on exertion and anxiety. He reports sleepless nights and decreased PO intake due to dry heaves 2nd to thick sputum. He has not taken medications for 5 days. He is on 3 L of O2 at home. He denies fever, chills, chest pain, or any other symptoms. He had a thoracentesis 2 weeks ago. His last chest X-ray was 8-9 days ago. Of note: Patient has no next of kin and very limited social support. In the ED patients vitals were as follows: T-?, HR - 110, RR - 29, BP 111/93, 96 % on 3.5 L NC. Patient received PPI push 80mg, 1 L NS. Notable Labs: WBC 13.3 N89%, Hgb 7.3, Albumin 2.7, Hospital Course # Acute on Chronic Respiratory Failure, present on admission. Active and ongoing. - Presented to ED for treatment of pleural effusion. - Loculated effusion on the Left side with thick sample from thoracentesis, likely malignant exudative effusion. - He has been on home O2 at 3L since 01/10/17. - Appreciate surgery and oncology consults. - Considered for decortication but this procedure was canceled due to the rapid progression of his tumor and low likelihood of technical success. - IS and acapella ordered. # Acute on chronic respiratory failure - Recent history of DVT. - CT angiogram was repeated on 01/22/17 showing no persistent pulmonary embolism. - He was bridged from oral anticoagulation to heparin drip. In light of risk of GI bleeding Dr. Bob advised to discontinue anticoagulation but he will discharge home with lower dose of anticoagulation along with low dose ASA (per Dr. Bob's recommendation) as noted below. # Recurrent severe left-sided malignant pleural effusion, POA and active. - VATS canceled per Dr. Pamela Carter # Probable Acute Blood loss Anemia, present on admission. Active and improved. - Stool guaiac positive. - Upper GI was negative. - Received 1 unit PRBCs on 01/20 - Combination of GI blood loss and chronic disease anemia # Stage IV Pulmonary Adenocarcinoma, present on admission. Active. - Had a therapeutic thoracentesis and had a bronchoscopy on 01/03/2017 - Palliative chemotherapy 01/23/17. Port placed in Left IJ. - Cancel hospice consult # Anxiety and pain, present on admission. - Appreciate palliative care consult. - Morphine, Lorazepam, Zolpidem prn # Peripheral Arterial Occlusive Disease, POA and stable. - Bilateral Femoral stents placed. # Hypertension. POA and stable off of BP meds # Hyperlipidema. POA and stable - Has not taken home meds for 5 days. - Hold statin for now # History of DVT/PE. POA and active. 12/31/2016, was diagnosed with pulmonary embolism with a CT pulmonary angiogram; small clot. Also Thrombus in right IJ. He was started on apixaban in addition to his ASA, Clopidogrel. Guaiac positive melanotic stools upon presentation this time. - Discontinued PE heparin ggt. # Protein Calorie Malnutrition, present on admission. Active. - States 40 lb weight loss recently. - Albumin 2.7. - Dietary consulted Exam Vital Signs (Last) Date Time Temp Pulse Resp B/P Pulse Ox O2 Delivery O2 Flow Rate FiO2 01/25/17 09:20 Supplement Oxygen 01/25/17 06:41 36.7 56 18 122/72 88 3.00 Exam General: Alert, Cooperative, No Acute Distress Head: Normal Eyes: Scleral Anicteric Nose: Mucous Membr Moist/[place] Mouth: Mucous Membr Moist/[place] Neck: Supple Chest & Lungs: Chest Wall Normal Cardiovascular: Regular Rate/Rhythm Pulses: NL carotid, radial, femoral, DP, PT Abdomen: Non-tender, Non-distended, Normoactive bowel tones, Soft Extremities: No cyanosis/clubbing/edema bilat Neurological: Grossly Neurologically Intact, Normal Speech Test 01/20/17 11:55 01/20/17 12:03 01/20/17 12:48 01/21/17 03:00 Magnesium Level 1.8mg/dL (1.6-2.6) Aspartate Amino Transf (AST/SGOT) 28U/L (0-50) Alanine Aminotransferase (ALT/SGPT) 23U/L (0-44) Alkaline Phosphatase 90U/L (25-160) Total Protein 6.1g/dL (6.4-8.4) Albumin 2.7g/dL (3.4-5.0) Hold Virgen Top Tube Received (Received) Prothrombin Time 13.3sec (8.1-12.5) Prothromb Time International Ratio 1.24ratio Procalcitonin 0.26ng/mL (0.00-0.08) Test 01/21/17 06:56 01/22/17 05:00 01/23/17 00:17 01/23/17 03:25 Urine Color Dark yellow (YELLOW) Urine Appearance Clear (CLEAR,HAZY) Urine pH 5.5 (5.0-8.0) Urine Specific [place] 1.025 (1.003-1.035) Urine Protein Tracemg/dL (NEG,TRACE) Urine Glucose (UA) Negativemg/dL (NEGATIVE) Urine Ketones Negativemg/dL (NEGATIVE) Urine Occult Blood Negative (NEGATIVE) Urine Nitrite Negative (NEGATIVE) Urine Bilirubin Negative (NEGATIVE) Urine Urobilinogen Normalmg/dL (NORMAL) Urine Leukocyte Esterase Negative (NEGATIVE) Urine RBC 0-2/hpf (0-2) Urine WBC 0-5/hpf (0-5) Urine Epithelial Cells Occasional/hpf (NONE-MOD) Urine Crystals Amorphous urates (NONE Urine Bacteria Few/hpf (NONE-FEW) Urine Hyaline Casts None/lpf (NONE) Urine Granular Casts None seen (NONE SEEN) Urine Waxy Casts None seen (NONE SEEN) Urine Red Blood Cell Casts None seen (NONE SEEN) Urine White Blood Cell Casts None seen (NONE SEEN) Urine Mucus None seen (None Seen) Urine Trichomonas None seen (NONE SEEN) Urine Yeast None (NONE SEEN) Urinalysis Comment None Urine Culture Reflexed Not indicated Pro-B-Type Natriuretic Peptide 1737pg/mL (0-210) Activated Partial Thromboplast Time 81.6sec (22.8-33.0) White Blood Count 9.3th/mm3 (3.8-10.1) Red Blood Count 2.98mil/mm3 (4.40-5.80) Hemoglobin 8.3g/dL (13.8-17.2) Hematocrit 26.0% (41.0-50.0) Mean Corpuscular Volume 87.2fL (81-100) Mean Corpuscular Hemoglobin 27.9pg (27.0-35.0) Mean Corpuscular Hemoglobin Concent 31.9% (32.0-37.0) Red Cell Distribution Width 18.4% (12.3-15.4) Platelet Count 225bil/L (150-400) Neutrophils (%) (Auto) 73.0% (40-74) Lymphocytes (%) (Auto) 10.8% (14-46) Monocytes (%) (Auto) 12.8% (4-12) Eosinophils (%) (Auto) 2.7% (0-5) Basophils (%) (Auto) 0.2% (0-3) Sodium Level 135mEq/L (134-144) Potassium Level 3.9mEq/L (3.5-5.2) Chloride Level 95mEq/L (97-108) Carbon Dioxide Level 30mmol/L (18-29) Blood Urea Nitrogen 13mg/dL (8-27) Creatinine 0.55mg/dL (0.76-1.27) Estimat Glomerular Filtration Rate 160mL/min (>59) Glucose Level 114mg/dL (60-99) Calcium Level 8.1mg/dL (8.5-10.1) Total Bilirubin 0.7mg/dL (0.0-1.2) Discharge Medications Discharge Medications Apixaban (Eliquis) 2.5 Mg Tablet 2.5 MG PO BID Prescribed by: REX PRADO MD Aspirin (Aspirin) 81 Mg Tablet 81 MG PO DAILY (Reported) As needed Benzonatate (Benzonatate) 100 Mg Capsule 100 MG PO TID PRN PRN For Cough Prescribed by: REX PRADO MD Lorazepam (Ativan) 0.5 Mg Tablet 0.5 MG PO BID PRN PRN For Anxiety Prescribed by: REX PRADO MD Morphine Sulfate (Morphine Sulfate) 15 Mg Tablet 15 MG PO Q4 PRN PRN dyspnea or pain Prescribed by: REX PRADO MD Ondansetron (Ondansetron) 8 Mg Tablet 8 MG PO BID PRN PRN For Nausea (Reported) Zolpidem (Zolpidem) 5 Mg Tablet 5 MG PO HS PRN PRN For Sleep Prescribed by: REX PRADO MD Followup Plan Disposition: Home with hospice Follow-up plan 1. Followup with oncology (Dr. Bob) this coming week as already scheduled. Discharge Diet: Heart Healthy Discharge Activity: Other (as tolerated ) Patient Instructions Seek immediate medical attention if any new or worsening signs or symptoms occur. Follow-up Provider: Muna Bob MD Time spent 35 min copies to: Muna Bob MD, Masoud Jan 25, 2017 18:10
[2017-01-29] MEDS ORDERED: RES15 PO (16:00)
== END 2017-01-25 13:17 | disposition home health service (06) | DRG 189 ==
LOC: SED 11:30 → PCC 14:11 → OSC 01-23 12:11
PROVIDERS: ADMIT Hospitalist; ATTEND Hospitalist
PROC: 30233N1 Transfusion of Nonautologous Red Blood Cells into Peripheral Vein, Percutaneous Approach (ICD-10-PCS; principal; 2017-01-20)
PROC: 0DJ08ZZ Inspection of Upper Intestinal Tract, Via Natural or Artificial Opening Endoscopic (ICD-10-PCS; 2017-01-21)
PROC: 4A033R1 Measurement of Arterial Saturation, Peripheral, Percutaneous Approach (ICD-10-PCS; 2017-01-22)
PROC: 30233N1 Transfusion of Nonautologous Red Blood Cells into Peripheral Vein, Percutaneous Approach (ICD-10-PCS; 2017-01-23)
DX: J96.21 Acute and chronic respiratory failure with hypoxia (principal); C34.92 Malignant neoplasm of unspecified part of left bronchus or lung; J91.0 Malignant pleural effusion; D62 Acute posthemorrhagic anemia; K92.1 Melena; C78.01 Secondary malignant neoplasm of right lung; C78.1 Secondary malignant neoplasm of mediastinum; E44.0 Moderate protein-calorie malnutrition; I82.C11 Acute embolism and thrombosis of right internal jugular vein; Z68.22 Body mass index [BMI] 22.0-22.9, adult; Z99.81 Dependence on supplemental oxygen; I73.9 Peripheral vascular disease, unspecified; I10 Essential (primary) hypertension; E78.5 Hyperlipidemia, unspecified; Z87.891 Personal history of nicotine dependence; Z86.711 Personal history of pulmonary embolism; Z79.01 Long term (current) use of anticoagulants; F41.9 Anxiety disorder, unspecified; Z51.5 Encounter for palliative care